=== PATIENT | male | born 1990 | race Caucasian/White ===

== ENCOUNTER 2020-02-01 13:25 | Outpatient (REF) | payer MEDICARE, MEDICAID, SELFPAY ==
[2020-02-01 14:38] LABS: White Blood Count 6.7 X10*3/uL (4.8-10.8)
== END 2020-02-01 13:26 | disposition home or self-care (01) ==
LOC: HO.LABR 13:25
PROVIDERS: Visit Provider Clinical Nurse Specialist Psychiatric/Mental Health, Adult
DX: Z51.81 Encounter for therapeutic drug level monitoring (principal); Z79.899 Other long term (current) drug therapy
CPT/HCPCS: 36415

== ENCOUNTER 2020-02-12 14:34 | Outpatient (REF) | payer MEDICARE, MEDICAID, SELFPAY ==
[2020-02-12 15:12] LABS: MANUAL DIFF FLAG NO
[2020-02-12 15:16] LABS: Basophils Percent Auto 0.2 % (0-2); Hematocrit 40.1 % (42-52); Hemoglobin 13.5 g/dl (14.0-18.0); Imm Gran Abs Auto 0.06 X10*3/uL (0.00-0.03); Lymphocytes Absolute Auto 1.6 X10*3/uL (1.2-4.9); Lymphocytes Percent Auto 26.1 % (20-40); Mean Corpuscular HGB Conc 33.7 g/dl (31.0-36.0); Mean Corpuscular Hemoglobin 27.9 pg (27.0-33.0); Mean Corpuscular Volume 82.9 fL (80-98); Mean Platelet Volume 10.9 fL (9.4-12.4); Monocytes Absolute Auto 0.4 X10*3/uL (0.1-1.2); Monocytes Percent Auto 7.2 % (2-11); Neut%MD 65.5 %; Neutrophils Absolute Auto 3.9 X10*3/uL (2.0-8.3); Neutrophils Percent Auto 65.5 % (45-73); Platelet Count 216 X10*3/uL (160-400); Red Blood Count 4.84 X10*6/uL (4.60-5.80); Red Cell Distribution Width 13.9 % (11.0-16.0)
== END 2020-02-12 14:35 | disposition home or self-care (01) ==
LOC: HO.LABR 14:34
PROVIDERS: Visit Provider Clinical Nurse Specialist Psychiatric/Mental Health, Adult
DX: Z79.899 Other long term (current) drug therapy (principal)
CPT/HCPCS: 36415; 85025

== ENCOUNTER 2020-02-28 11:16 | Outpatient (REF) | payer MEDICARE, MEDICAID, SELFPAY ==
[2020-02-28 11:53] LABS: Neut%MD 67.2 %; Neutrophils Absolute Auto 5.2 X10*3/uL (2.0-8.3); WBCANC 7.7 X10*3/uL; White Blood Count 7.7 X10*3/uL (4.8-10.8)
== END 2020-02-28 11:17 | disposition home or self-care (01) ==
LOC: HO.LABR 11:16
PROVIDERS: Visit Provider Clinical Nurse Specialist Psychiatric/Mental Health, Adult
DX: Z51.81 Encounter for therapeutic drug level monitoring (principal)
CPT/HCPCS: 36415

== ENCOUNTER 2020-03-26 13:38 | Outpatient (REF) | payer MEDICARE, MEDICAID, SELFPAY ==
[2020-03-26 16:24] LABS: Neut%MD 72.5 %; Neutrophils Absolute Auto 5.7 X10*3/uL (2.0-8.3); WBCANC 7.9 X10*3/uL; White Blood Count 7.9 X10*3/uL (4.8-10.8)
== END 2020-03-26 13:39 | disposition home or self-care (01) ==
LOC: HO.HMGCLDS 13:38
PROVIDERS: Visit Provider Clinical Nurse Specialist Psychiatric/Mental Health, Adult
DX: R79.89 Other specified abnormal findings of blood chemistry (principal); Z79.899 Other long term (current) drug therapy
CPT/HCPCS: 36415; 85048

== ENCOUNTER 2020-04-22 11:23 | Outpatient (REF) | payer MEDICARE, MEDICAID, SELFPAY ==
[2020-04-22 14:25] LABS: Neutrophils Absolute Auto 4.9 X10*3/uL (2.0-8.3); White Blood Count 7.1 X10*3/uL (4.8-10.8)
== END 2020-04-22 11:24 | disposition home or self-care (01) ==
LOC: HO.HMGCLR 11:23
PROVIDERS: Visit Provider Clinical Nurse Specialist Psychiatric/Mental Health, Adult
DX: Z51.81 Encounter for therapeutic drug level monitoring (principal); Z79.899 Other long term (current) drug therapy
CPT/HCPCS: 36415; 85048

== ENCOUNTER 2020-05-27 13:20 | Outpatient (REF) | payer MEDICARE, MEDICAID, SELFPAY ==
[2020-05-27 15:05] LABS: White Blood Count 7.5 X10*3/uL (4.8-10.8)
[2020-05-28 12:03] LABS: Neutrophils Absolute Auto 5.4 X10*3/uL (2.0-8.3)
== END 2020-05-27 13:21 | disposition home or self-care (01) ==
LOC: HO.LABR 13:20
PROVIDERS: Visit Provider Clinical Nurse Specialist Psychiatric/Mental Health, Adult
DX: Z13.89 Encounter for screening for other disorder (principal)
CPT/HCPCS: 36415; 85048

== ENCOUNTER 2020-06-06 15:39 | Outpatient (REF) | payer MEDICARE, MEDICAID, SELFPAY ==
--- NOTE | ~2020-06-06 | XR_ITS ---
EXAMINATION: XR KNEE, RIGHT CLINICAL INFORMATION: Pain in the right knee COMPARISON: Prior x-rays of right knee April 2019 and MRI of the right knee April 2017. TECHNIQUE: Four views of the right knee. FINDINGS: There is prominence of the distal pole of the patella which may be a sequela of old patella fracture or incorporation of ossification related to old patella tendon tear. Bones and soft tissues are otherwise normal. No fracture or joint effusion. Alignment is anatomic. Joint spaces are well maintained. No abnormal soft tissue calcification. XR/XR knee RT 4V IMPRESSION: No acute abnormality. Stable appearance of the patella.
--- NOTE | ~2020-06-06 | XR_ITS ---
EXAMINATION: XR ANKLE, RIGHT CLINICAL INFORMATION: Pain right ankle COMPARISON: X-ray the right ankle April 2015 TECHNIQUE: AP, lateral, and mortise views of the right ankle. FINDINGS: Soft tissue prominence over the lateral malleolus may reflect normal variation or mild edema. No joint effusion. Small calcaneal spurs. Mild degenerative changes of the naviculocuneiform joint. I do not see a fracture. XR/XR ankle RT min 3V IMPRESSION: Mild osteoarthritis in the midfoot unchanged. Question mild soft tissue swelling laterally versus soft tissue prominence
== END 2020-06-06 15:40 | disposition home or self-care (01) ==
LOC: HO.XRAY 15:39
PROVIDERS: PCP Internal Medicine; Visit Provider Internal Medicine
DX: M25.561 Pain in right knee (principal); M25.571 Pain in right ankle and joints of right foot
CPT/HCPCS: 73564; 73610

== ENCOUNTER 2020-06-26 11:17 | Outpatient (REF) | payer MEDICARE, MEDICAID, SELFPAY ==
[2020-06-26 14:08] LABS: MANUAL DIFF FLAG NO
[2020-06-26 14:17] LABS: Hematocrit 44.1 % (42-52); Hemoglobin 14.4 g/dl (14.0-18.0); Imm Gran Abs Auto 0.05 X10*3/uL (0.00-0.03); Imm Gran Pct Auto 0.7 % (0.0-0.4); Lymphocytes Absolute Auto 1.6 X10*3/uL (1.2-4.9); Lymphocytes Percent Auto 22.6 % (20-40); Mean Corpuscular HGB Conc 32.7 g/dl (31.0-36.0); Mean Corpuscular Hemoglobin 27.5 pg (27.0-33.0); Mean Corpuscular Volume 84.2 fL (80-98); Mean Platelet Volume 11.7 fL (9.4-12.4); Monocytes Absolute Auto 0.5 X10*3/uL (0.1-1.2); Monocytes Percent Auto 6.9 % (2-11); Neutrophils Absolute Auto 4.8 X10*3/uL (2.0-8.3); Neutrophils Percent Auto 69.8 % (45-73); Platelet Count 248 X10*3/uL (160-400); Red Blood Count 5.24 X10*6/uL (4.60-5.80); Red Cell Distribution Width 14.1 % (11.0-16.0); White Blood Count 6.9 X10*3/uL (4.8-10.8)
== END 2020-06-26 11:18 | disposition home or self-care (01) ==
LOC: HO.10HDL 11:17
PROVIDERS: Visit Provider Clinical Nurse Specialist Psychiatric/Mental Health, Adult
DX: Z79.899 Other long term (current) drug therapy (principal)
CPT/HCPCS: 36415; 85025

== ENCOUNTER 2020-07-18 11:07 | Emergency (ER) | payer MEDICARE, MEDICAID, SELFPAY ==
--- NOTE | ~2020-07-18 | XR_ITS ---
EXAMINATION: XR ANKLE, RIGHT CLINICAL INFORMATION: Pain and swelling greater lateral side COMPARISON: Radiographs right ankle 06/06/2020 TECHNIQUE: AP, lateral, and mortise views of the right ankle. FINDINGS: Bimalleolar soft tissue swelling is increased since prior exam 06/06/2020. The malleoli appear intact and the ankle mortise is symmetric. The bony mineralization appears normal. There is no fracture, dislocation, destructive process, or periostitis. There is no joint narrowing or erosive change or visible chondrocalcinosis. The subtalar joint is unremarkable. The retrocalcaneal recess is preserved. There are posterior and plantar calcaneal spurs again seen and mild borderline spurring dorsal midfoot. XR/XR ankle RT min 3V IMPRESSION: 1. Soft tissue swelling increased since 06/06/2020. 2. No acute bony abnormality. No fracture, destructive process, or interval arthropathy. 3. Posterior and plantar calcaneal spurs.
--- NOTE | 2020-07-18 11:54 | ED_ITS ---
HPI - Extremity Injury (Lower) General Chief Complaint: Extremity Injury, Lower Stated Complaint: ankle pain Time Seen by Provider: 07/18/20 11:54 Source: patient Mode of arrival: ambulatory Limitations: no limitations History of Present Illness HPI Narrative: 29-year-old male with pmh of asthma, htn here with right ankle pain for 1 month. The patient tells me that he did have a twisting injury 1 month ago causing some pain and swelling. He was evaluated by his primary care doctor and had some x-rays which were reportedly normal. He tells me that he continue to work after the injury and did not do any resting or elevation or supportive care. He now has persistent pain and swelling. He has an appointment on the with new include orthopedics. He denies any numbness, tingling, redness, warmth, fevers, chills. Uses a cane for ambulation Related Data Previous Rx's Medication Instructions Recorded ibuprofen 600 mg PO Q8H PRN #10 tab 07/18/20 Allergies Allergy/AdvReac Type Severity Reaction Status Date / Time No Known Allergies Allergy Unverified 12/14/19 15:59 [No Known Allergies*] Lactose intolerant Allergy Unknown Diarrhea Uncoded 07/18/20 12:01 Review of Systems Review of Systems: Yes all other systems are reviewed and are negative Constitutional: Constitutional: Reports no additional constitutional complaints, Denies body ache(s), Denies chills, Denies fever(s), Denies headache(s) and Denies weakness Eyes: Eyes: Reports no additional eye complaints and Denies change in vision ENT: Reports system reviewed and no additional complaints, except as documented, Denies dizziness, Denies headache(s), Denies nasal congestion, Denies nasal discharge and Denies neck pain Cardiovascular: Cardiovascular: Reports no additional cardiovascular complaints, Denies chest pain, Denies leg edema and Denies dyspnea Respiratory: Respiratory: Reports no additional respiratory complaints, Denies cough and Denies dyspnea Gastrointestinal: Gastrointestinal: Reports no additional gastrointestinal complaints, Denies abdominal pain, Denies diarrhea, Denies nausea and Denies vomiting Genitourinary: Genitourinary: Denies urinary incontinence Musculoskeletal: Musculoskeletal: Reports no additional musculoskeletal complaints, Denies back pain, Reports arthralgias, Reports joint swelling, Denies neck pain, Denies numbness and Denies tingling Integumentary/Breasts: Skin/Breast: Reports system reviewed and no additional complaints, except as docu and Denies rash Neurologic: Reports system reviewed and no additional complaints, except as documented, Denies Abnormal speech present, Denies dizziness, Denies headache(s), Denies numbness, Denies tingling and Denies weakness PMFSH Past Medical History Attestation statement: The following information was validated with the patient. Source: old records reviewed and nursing notes reviewed Medical History Asthma High blood pressure Social History Social History Advance Directives: No Advance Directives Information Provided: No Physical Exam Vital Signs: Vital Signs: Last Vital Signs Temp 97.5 F 07/18/20 11:55 Pulse 100 07/18/20 11:55 Resp 20 07/18/20 11:55 BP 154/87 H 07/18/20 11:55 Pulse Ox 96 07/18/20 11:55 Body Mass Index 53.1 Const: General: cooperative, healthy appearing, comfortable and no acute distress Orientation/consciousness: patient oriented x3 Limitations: no limitations HENMT: Head: Yes normal to inspection Ears: hearing grossly normal bilaterally General nose exam: Normal external nose present Face and sinus: Yes normal facial exam Mouth: Normal oral and palatal mucosa present Throat: Yes posterior oropharynx normal Eyes: General: appearance normal, both eyes and all related structures Pupils: Equal, round and reactive pupils present Neck: Neck: Yes normal visual inspection Chest: Chest palpation & inspection: normal inspection of the chest Resp: Effort & Inspection: normal respiratory effort Auscultation: clear to auscultation bilaterally Cardio: Rate: regular rate Rhythm: regular rhythm Peripheral pulses: Peripheral pulses 2+ throughout GI: Inspection: Yes normal to inspection Palpation (GI): Soft to palpation and nontender Auscultation: normal bowel sounds Back/Spine/Pelvis: Thoracic/Lumbar Spine: thoracic and lumbar spine normal to inspection Skin: General skin exam: no rashes or lesions noted Neuro: General: patient oriented x3, no focal motor deficits and normal sensation to monofilament Cranial nerves: Yes Equal, round and reactive pupils present Cognition (Neuro): normal cognition Speech: No Abnormal speech present Gait exam (Neuro): Normal gait present Motor exam (neuro): 5/5 motor strength present throughout Extrem: Other: Tenderness with mild swelling over the right lateral ankle with some mild tenderness but no swelling over the medial ankle. Full range of motion. No posterior pain. Negative Huff test. No foot pain. Neurovascular intact distally. General: Yes normal to inspection Course Course Course Narrative: Persistent right ankle pain and swelling status post twisting injury 1 month ago. No new injury or trauma. No paresthesias. CMS intact distally. X-rays today though show no bony abnormality. He already has an appointment with Orthopedics on 07/24. We discussed supportive care in the meantime including limiting weight-bearing, ice, elevation and anti-inflammatory medication. Reviewed worrisome signs and symptoms of when to seek additional care. Comfortable discharge home. Procedures Procedure Narrative Procedure Narrative: Jag wrap right ankle MDM - Extremity Injury (Lower) Medical Records Attestation: I reviewed the patient's medical records. Lab Data Attestation: I reviewed the patient's lab results. Imaging Data ankle/foot xray: Attestation: I personally reviewed and interpreted this imaging study as follows: Radiologist's impression: EXAMINATION: XR ANKLE, RIGHT CLINICAL INFORMATION: Pain and swelling greater lateral side COMPARISON: Radiographs right ankle 06/06/2020 TECHNIQUE: AP, lateral, and mortise views of the right ankle. FINDINGS: Bimalleolar soft tissue swelling is increased since prior exam 06/06/2020. The malleoli appear intact and the ankle mortise is symmetric. The bony mineralization appears normal. There is no fracture, dislocation, destructive process, or periostitis. There is no joint narrowing or erosive change or visible chondrocalcinosis. The subtalar joint is unremarkable. The retrocalcaneal recess is preserved. There are posterior and plantar calcaneal spurs again seen and mild borderline spurring dorsal midfoot. XR/XR ankle RT min 3V IMPRESSION: 1. Soft tissue swelling increased since 06/06/2020. 2. No acute bony abnormality. No fracture, destructive process, or interval arthropathy. 3. Posterior and plantar calcaneal spurs. Discharge Plan Discharge Clinical Impression: Ankle sprain and strain Patient Disposition: Home, Self-Care Instructions: Ankle Sprain (ED) Additional Instructions: Ice, elevation, limit weight bearing Follow-up as scheduled with orthopedics Prescriptions: New ibuprofen 600 mg tablet 600 mg PO Q8H PRN (Reason: pain) Qty: 10 RF: 0 Referrals: [facility] [Primary Care Provider] - 2 days Stand Alone Forms: Work/School Release Interventions: ED Discharge Assessment Last Done: 07/18/20 12:58 Discharge Date/Time: 07/18/20 13:11
[2020-07-18 11:55] VITALS: BP 154/87; PULSE 100; RESP 20; TEMP 36.4; O2SAT 96; BMI 53.1
[2020-07-18] MEDS: Ibuprofen 600 MG TABLET PO (13:07)
== END 2020-07-18 13:11 | disposition home or self-care (01) ==
PROVIDERS: Emergency Provider Emergency Medicine
DX: S93.401A Sprain of unspecified ligament of right ankle, initial encounter (principal); S96.911A Strain of unspecified muscle and tendon at ankle and foot level, right foot, initial encounter; X50.1XXA Overexertion from prolonged static or awkward postures, initial encounter; Y93.9 Activity, unspecified; Y92.9 Unspecified place or not applicable; Y99.9 Unspecified external cause status
CPT/HCPCS: 73610; 99283

== ENCOUNTER → 2020-07-24 09:59 | Outpatient (BNVA) | payer MEDICARE, MEDICAID, SELFPAY | PROVIDERS: Visit Provider Physician Assistant | DX: M19.071 Primary osteoarthritis, right ankle and foot (principal) | CPT/HCPCS: 99202 ==

== ENCOUNTER 2020-07-30 11:13 | Outpatient (REF) | payer MEDICARE, MEDICAID, SELFPAY ==
[2020-07-30 14:06] LABS: MANUAL DIFF FLAG NO
[2020-07-30 14:27] LABS: Basophils Percent Auto 0.1 % (0-2); Hematocrit 43.1 % (42-52); Hemoglobin 13.9 g/dl (14.0-18.0); Imm Gran Abs Auto 0.07 X10*3/uL (0.00-0.03); Lymphocytes Absolute Auto 1.6 X10*3/uL (1.2-4.9); Lymphocytes Percent Auto 22.3 % (20-40); Mean Corpuscular HGB Conc 32.3 g/dl (31.0-36.0); Mean Corpuscular Hemoglobin 26.9 pg (27.0-33.0); Mean Corpuscular Volume 83.4 fL (80-98); Mean Platelet Volume 11.3 fL (9.4-12.4); Monocytes Absolute Auto 0.5 X10*3/uL (0.1-1.2); Monocytes Percent Auto 7.4 % (2-11); Neutrophils Percent Auto 69.2 % (45-73); Platelet Count 232 X10*3/uL (160-400); Red Blood Count 5.17 X10*6/uL (4.60-5.80); Red Cell Distribution Width 13.9 % (11.0-16.0); White Blood Count 7.3 X10*3/uL (4.8-10.8)
== END 2020-07-30 11:14 | disposition home or self-care (01) ==
LOC: HO.10HDL 11:13
PROVIDERS: Visit Provider Clinical Nurse Specialist Psychiatric/Mental Health, Adult
DX: Z79.899 Other long term (current) drug therapy (principal)
CPT/HCPCS: 36415; 85025

== ENCOUNTER 2020-08-29 15:06 | Outpatient (REF) | payer MEDICARE, MEDICAID, SELFPAY ==
[2020-08-29 15:38] LABS: MANUAL DIFF FLAG NO
[2020-08-29 15:47] LABS: Hematocrit 43.8 % (42-52); Hemoglobin 14.4 g/dl (14.0-18.0); Imm Gran Abs Auto 0.04 X10*3/uL (0.00-0.03); Imm Gran Pct Auto 0.6 % (0.0-0.4); Lymphocytes Absolute Auto 1.7 X10*3/uL (1.2-4.9); Lymphocytes Percent Auto 27.2 % (20-40); Mean Corpuscular HGB Conc 32.9 g/dl (31.0-36.0); Mean Corpuscular Hemoglobin 27.1 pg (27.0-33.0); Mean Corpuscular Volume 82.5 fL (80-98); Mean Platelet Volume 11.3 fL (9.4-12.4); Monocytes Absolute Auto 0.3 X10*3/uL (0.1-1.2); Monocytes Percent Auto 4.7 % (2-11); Neutrophils Absolute Auto 4.3 X10*3/uL (2.0-8.3); Neutrophils Percent Auto 67.5 % (45-73); Platelet Count 214 X10*3/uL (160-400); Red Blood Count 5.31 X10*6/uL (4.60-5.80); Red Cell Distribution Width 14.3 % (11.0-16.0); White Blood Count 6.4 X10*3/uL (4.8-10.8)
== END 2020-08-29 15:07 | disposition home or self-care (01) ==
LOC: HO.LABR 15:06
PROVIDERS: Visit Provider Clinical Nurse Specialist Psychiatric/Mental Health, Adult
DX: Z79.899 Other long term (current) drug therapy (principal)
CPT/HCPCS: 36415; 85025

== ENCOUNTER 2020-09-26 11:18 | Outpatient (REF) | payer MEDICARE, MEDICAID, SELFPAY ==
[2020-09-26 12:18] LABS: MANUAL DIFF FLAG NO
[2020-09-26 12:24] LABS: Basophils Percent Auto 0.1 % (0-2); Hematocrit 43.9 % (42-52); Hemoglobin 14.4 g/dl (14.0-18.0); Imm Gran Abs Auto 0.05 X10*3/uL (0.00-0.03); Imm Gran Pct Auto 0.7 % (0.0-0.4); Lymphocytes Absolute Auto 1.7 X10*3/uL (1.2-4.9); Lymphocytes Percent Auto 23.9 % (20-40); Mean Corpuscular HGB Conc 32.8 g/dl (31.0-36.0); Mean Corpuscular Hemoglobin 27.5 pg (27.0-33.0); Mean Corpuscular Volume 83.9 fL (80-98); Mean Platelet Volume 10.9 fL (9.4-12.4); Monocytes Absolute Auto 0.4 X10*3/uL (0.1-1.2); Monocytes Percent Auto 5.8 % (2-11); Neutrophils Absolute Auto 4.9 X10*3/uL (2.0-8.3); Neutrophils Percent Auto 69.5 % (45-73); Platelet Count 225 X10*3/uL (160-400); Red Blood Count 5.23 X10*6/uL (4.60-5.80)
== END 2020-09-26 11:19 | disposition home or self-care (01) ==
LOC: HO.LABR 11:18
PROVIDERS: Visit Provider Clinical Nurse Specialist Psychiatric/Mental Health, Adult
DX: Z79.899 Other long term (current) drug therapy (principal)
CPT/HCPCS: 36415; 85025

== ENCOUNTER 2020-10-24 14:51 | Outpatient (REF) | payer MEDICARE, MEDICAID, SELFPAY ==
[2020-10-24 15:26] LABS: MANUAL DIFF FLAG NO
[2020-10-24 15:29] LABS: Basophils Percent Auto 0.1 % (0-2); Eosinophils Percent Auto 0.1 % (0-4); Hematocrit 44.2 % (42-52); Hemoglobin 14.6 g/dl (14.0-18.0); Imm Gran Abs Auto 0.08 X10*3/uL (0.00-0.03); Imm Gran Pct Auto 1.1 % (0.0-0.4); Mean Corpuscular Hemoglobin 27.5 pg (27.0-33.0); Mean Corpuscular Volume 83.4 fL (80-98); Mean Platelet Volume 10.8 fL (9.4-12.4); Monocytes Absolute Auto 0.5 X10*3/uL (0.1-1.2); Monocytes Percent Auto 6.2 % (2-11); Neutrophils Absolute Auto 4.9 X10*3/uL (2.0-8.3); Neutrophils Percent Auto 65.5 % (45-73); Platelet Count 243 X10*3/uL (160-400); Red Cell Distribution Width 13.8 % (11.0-16.0); White Blood Count 7.5 X10*3/uL (4.8-10.8)
== END 2020-10-24 14:52 | disposition home or self-care (01) ==
LOC: HO.LABR 14:51
PROVIDERS: Visit Provider Clinical Nurse Specialist Psychiatric/Mental Health, Adult
DX: Z79.899 Other long term (current) drug therapy (principal)
CPT/HCPCS: 36415; 85025

== ENCOUNTER 2020-11-26 10:56 | Outpatient (REF) | payer MEDICARE, MEDICAID, SELFPAY ==
[2020-11-26 13:38] LABS: MANUAL DIFF FLAG NO
[2020-11-26 13:45] LABS: Basophils Percent Auto 0.1 % (0-2); Hematocrit 46.5 % (42-52); Hemoglobin 15.1 g/dl (14.0-18.0); Imm Gran Abs Auto 0.08 X10*3/uL (0.00-0.03); Imm Gran Pct Auto 1.1 % (0.0-0.4); Lymphocytes Absolute Auto 1.9 X10*3/uL (1.2-4.9); Lymphocytes Percent Auto 26.3 % (20-40); Mean Corpuscular HGB Conc 32.5 g/dl (31.0-36.0); Mean Corpuscular Hemoglobin 27.1 pg (27.0-33.0); Mean Corpuscular Volume 83.5 fL (80-98); Mean Platelet Volume 11.2 fL (9.4-12.4); Monocytes Absolute Auto 0.4 X10*3/uL (0.1-1.2); Neutrophils Absolute Auto 4.8 X10*3/uL (2.0-8.3); Neutrophils Percent Auto 66.5 % (45-73); Platelet Count 237 X10*3/uL (160-400); Red Blood Count 5.57 X10*6/uL (4.60-5.80); Red Cell Distribution Width 13.4 % (11.0-16.0); White Blood Count 7.2 X10*3/uL (4.8-10.8)
== END 2020-11-26 10:57 | disposition home or self-care (01) ==
LOC: HO.10HDL 10:56
PROVIDERS: Visit Provider Clinical Nurse Specialist Psychiatric/Mental Health, Adult
DX: Z79.899 Other long term (current) drug therapy (principal)
CPT/HCPCS: 36415; 85025

== ENCOUNTER 2020-12-23 12:30 | Outpatient (REF) | payer MEDICARE, MEDICAID, SELFPAY ==
[2020-12-23 14:00] LABS: Hematocrit 45.3 % (42-52); Imm Gran Abs Auto 0.07 X10*3/uL (0.00-0.03); Lymphocytes Percent Auto 27.8 % (20-40); MANUAL DIFF FLAG NO; Mean Corpuscular HGB Conc 33.1 g/dl (31.0-36.0); Mean Corpuscular Hemoglobin 27.5 pg (27.0-33.0); Mean Corpuscular Volume 83.1 fL (80-98); Mean Platelet Volume 11.7 fL (9.4-12.4); Monocytes Absolute Auto 0.5 X10*3/uL (0.1-1.2); Monocytes Percent Auto 6.5 % (2-11); Neutrophils Absolute Auto 4.7 X10*3/uL (2.0-8.3); Neutrophils Percent Auto 64.7 % (45-73); Platelet Count 246 X10*3/uL (160-400); Red Blood Count 5.45 X10*6/uL (4.60-5.80); Red Cell Distribution Width 13.9 % (11.0-16.0); White Blood Count 7.3 X10*3/uL (4.8-10.8)
== END 2020-12-23 12:31 | disposition home or self-care (01) ==
LOC: HO.10HDL 12:30
PROVIDERS: Visit Provider Clinical Nurse Specialist Psychiatric/Mental Health, Adult
DX: Z79.899 Other long term (current) drug therapy (principal)
CPT/HCPCS: 36415; 85025

== ENCOUNTER 2021-01-16 12:13 | Outpatient (REF) | payer MEDICARE, MEDICAID, SELFPAY ==
[2021-01-16 13:39] LABS: MANUAL DIFF FLAG NO
[2021-01-16 13:47] LABS: Hemoglobin 14.3 g/dl (14.0-18.0); Imm Gran Abs Auto 0.05 X10*3/uL (0.00-0.03); Imm Gran Pct Auto 0.7 % (0.0-0.4); Lymphocytes Absolute Auto 1.9 X10*3/uL (1.2-4.9); Lymphocytes Percent Auto 26.4 % (20-40); Mean Corpuscular HGB Conc 33.3 g/dl (31.0-36.0); Mean Corpuscular Hemoglobin 27.8 pg (27.0-33.0); Mean Corpuscular Volume 83.5 fL (80-98); Mean Platelet Volume 11.7 fL (9.4-12.4); Monocytes Absolute Auto 0.4 X10*3/uL (0.1-1.2); Monocytes Percent Auto 5.7 % (2-11); Neut%MD 67.2 %; Neutrophils Absolute Auto 4.7 X10*3/uL (2.0-8.3); Neutrophils Percent Auto 67.2 % (45-73); Platelet Count 210 X10*3/uL (160-400); Red Blood Count 5.15 X10*6/uL (4.60-5.80)
== END 2021-01-16 12:14 | disposition home or self-care (01) ==
LOC: HO.10HDL 12:13
PROVIDERS: Visit Provider Clinical Nurse Specialist Psychiatric/Mental Health, Adult
DX: Z79.899 Other long term (current) drug therapy (principal)
CPT/HCPCS: 36415; 85025

== ENCOUNTER 2021-02-17 12:02 | Outpatient (REF) | payer MEDICARE, MEDICAID, SELFPAY ==
[2021-02-17 13:56] LABS: MANUAL DIFF FLAG NO
[2021-02-17 14:02] LABS: Basophils Percent Auto 0.1 % (0-2); Hematocrit 44.3 % (42.0-52.0); Hemoglobin 14.8 g/dl (14.0-18.0); Imm Gran Abs Auto 0.06 X10*3/uL (0.00-0.03); Imm Gran Pct Auto 0.8 % (0.0-0.4); Lymphocytes Absolute Auto 1.9 X10*3/uL (1.2-4.9); Lymphocytes Percent Auto 25.7 % (20-40); Mean Corpuscular HGB Conc 33.4 g/dl (31.0-36.0); Mean Corpuscular Volume 83.9 fL (80.0-98.0); Mean Platelet Volume 11.3 fL (9.4-12.4); Monocytes Absolute Auto 0.5 X10*3/uL (0.1-1.2); Monocytes Percent Auto 6.5 % (2-11); Neutrophils Percent Auto 66.9 % (45-73); Platelet Count 219 X10*3/uL (160-400); Red Blood Count 5.28 X10*6/uL (4.60-5.80); Red Cell Distribution Width 13.7 % (11.0-16.0); White Blood Count 7.5 X10*3/uL (4.8-10.8)
== END 2021-02-17 12:03 | disposition home or self-care (01) ==
LOC: HO.10HDL 12:02
PROVIDERS: Visit Provider Clinical Nurse Specialist Psychiatric/Mental Health, Adult
DX: Z79.899 Other long term (current) drug therapy (principal)
CPT/HCPCS: 36415; 85025

== ENCOUNTER 2021-03-25 14:51 | Outpatient (REF) | payer MEDICARE, MEDICAID, SELFPAY ==
--- NOTE | ~2021-03-25 | XR_ITS ---
EXAMINATION: XR HAND, RIGHT CLINICAL INFORMATION: Pain between first and second digits. COMPARISON: None TECHNIQUE: PA, lateral, and oblique views of the right hand. FINDINGS: Images are obtained with a marker directed towards the first-second interphalangeal space. No fractures, malalignment or arthropathic changes are identified. A 1 mm punctate ossific fragment is noted medially distal to the ulnar styloid process. Normal bone mineralization is present. No marginal erosions visualized. Diffuse soft tissue prominence is present. 3 mm negative ulnar variance is identified. XR/XR hand RT min 3V IMPRESSION: *No acute abnormalities identified. *Diffuse soft tissue prominence throughout the hand which may reflect body habitus. *Single 1 mm ossific body adjacent to the ulnar styloid process which may represent minimal soft tissue dystrophic calcification or the sequela of remote injury.
== END 2021-03-25 14:52 | disposition home or self-care (01) ==
LOC: HO.XRAY 14:51
PROVIDERS: PCP Internal Medicine; Visit Provider Internal Medicine
DX: M79.641 Pain in right hand (principal)
CPT/HCPCS: 73130

== ENCOUNTER 2021-03-26 12:17 | Outpatient (REF) | payer MEDICARE, MEDICAID, SELFPAY ==
[2021-03-26 13:26] LABS: MANUAL DIFF FLAG NO
[2021-03-26 13:33] LABS: Eosinophils Percent Auto 0.1 % (0-4); Hematocrit 44.2 % (42.0-52.0); Hemoglobin 14.4 g/dl (14.0-18.0); Imm Gran Abs Auto 0.06 X10*3/uL (0.00-0.03); Imm Gran Pct Auto 0.8 % (0.0-0.4); Lymphocytes Absolute Auto 1.7 X10*3/uL (1.2-4.9); Lymphocytes Percent Auto 23.2 % (20-40); Mean Corpuscular HGB Conc 32.6 g/dl (31.0-36.0); Mean Corpuscular Hemoglobin 27.6 pg (27.0-33.0); Mean Corpuscular Volume 84.7 fL (80.0-98.0); Mean Platelet Volume 11.2 fL (9.4-12.4); Monocytes Absolute Auto 0.4 X10*3/uL (0.1-1.2); Monocytes Percent Auto 5.3 % (2-11); Neut%MD 70.6 %; Neutrophils Absolute Auto 5.2 x10*3/uL (2.0-8.3); Neutrophils Percent Auto 70.6 % (45-73); Platelet Count 228 X10*3/uL (160-400); Red Blood Count 5.22 X10*6/uL (4.60-5.80); Red Cell Distribution Width 13.7 % (11.0-16.0); WBCANC 7.3 X10*3/uL; White Blood Count 7.3 X10*3/uL (4.8-10.8)
== END 2021-03-26 12:18 | disposition home or self-care (01) ==
LOC: HO.10HDL 12:17
PROVIDERS: Visit Provider Clinical Nurse Specialist Psychiatric/Mental Health, Adult
DX: Z79.899 Other long term (current) drug therapy (principal)
CPT/HCPCS: 36415; 85025

== ENCOUNTER 2021-04-22 13:03 | Outpatient (REF) | payer MEDICARE, MEDICAID, SELFPAY ==
[2021-04-22 13:32] LABS: MANUAL DIFF FLAG NO
[2021-04-22 13:56] LABS: Basophils Percent Auto 0.1 % (0-2); Hematocrit 46.6 % (42.0-52.0); Hemoglobin 14.9 g/dl (14.0-18.0); Imm Gran Abs Auto 0.04 X10*3/uL (0.00-0.03); Imm Gran Pct Auto 0.6 % (0.0-0.4); Lymphocytes Absolute Auto 1.7 X10*3/uL (1.2-4.9); Mean Corpuscular Hemoglobin 27.1 pg (27.0-33.0); Mean Corpuscular Volume 84.7 fL (80.0-98.0); Mean Platelet Volume 11.3 fL (9.4-12.4); Monocytes Absolute Auto 0.4 X10*3/uL (0.1-1.2); Monocytes Percent Auto 6.4 % (2-11); Neut%MD 67.9 %; Neutrophils Absolute Auto 4.7 x10*3/uL (2.0-8.3); Neutrophils Percent Auto 67.9 % (45-73); Platelet Count 227 X10*3/uL (160-400); Red Cell Distribution Width 13.7 % (11.0-16.0); WBCANC 6.9 X10*3/uL; White Blood Count 6.9 X10*3/uL (4.8-10.8)
== END 2021-04-22 13:04 | disposition home or self-care (01) ==
LOC: HO.LAB 13:03
PROVIDERS: Visit Provider Clinical Nurse Specialist Psychiatric/Mental Health, Adult
DX: Z79.899 Other long term (current) drug therapy (principal)
CPT/HCPCS: 36415; 85025

== ENCOUNTER 2021-05-27 10:38 | Outpatient (REF) | payer MEDICARE, MEDICAID, SELFPAY ==
[2021-05-27 13:33] LABS: MANUAL DIFF FLAG NO
[2021-05-27 13:36] LABS: Basophils Percent Auto 0.1 % (0-2); Hematocrit 44.7 % (42.0-52.0); Hemoglobin 14.7 g/dl (14.0-18.0); Imm Gran Abs Auto 0.03 X10*3/uL (0.00-0.03); Imm Gran Pct Auto 0.4 % (0.0-0.4); Lymphocytes Absolute Auto 1.7 X10*3/uL (1.2-4.9); Lymphocytes Percent Auto 24.3 % (20-40); Mean Corpuscular HGB Conc 32.9 g/dl (31.0-36.0); Mean Corpuscular Hemoglobin 27.9 pg (27.0-33.0); Mean Platelet Volume 11.7 fL (9.4-12.4); Monocytes Absolute Auto 0.5 X10*3/uL (0.1-1.2); Monocytes Percent Auto 6.9 % (2-11); Neutrophils Absolute Auto 4.8 x10*3/uL (2.0-8.3); Neutrophils Percent Auto 68.3 % (45-73); Platelet Count 217 X10*3/uL (160-400); Red Blood Count 5.26 X10*6/uL (4.60-5.80); Red Cell Distribution Width 13.7 % (11.0-16.0); White Blood Count 7.1 X10*3/uL (4.8-10.8)
== END 2021-05-27 10:39 | disposition home or self-care (01) ==
LOC: HO.10HDLR 10:38
PROVIDERS: Visit Provider Clinical Nurse Specialist Psychiatric/Mental Health, Adult
DX: Z79.899 Other long term (current) drug therapy (principal)
CPT/HCPCS: 36415; 85025

== ENCOUNTER 2021-06-24 10:13 | Outpatient (REF) | payer MEDICARE, MEDICAID, SELFPAY ==
[2021-06-24 10:27] LABS: MANUAL DIFF FLAG NO
[2021-06-24 10:41] LABS: Basophils Percent Auto 0.1 % (0-2); Hematocrit 44.2 % (42.0-52.0); Hemoglobin 14.4 g/dl (14.0-18.0); Imm Gran Abs Auto 0.06 X10*3/uL (0.00-0.03); Imm Gran Pct Auto 0.8 % (0.0-0.4); Lymphocytes Absolute Auto 1.9 X10*3/uL (1.2-4.9); Lymphocytes Percent Auto 25.1 % (20-40); Mean Corpuscular HGB Conc 32.6 g/dl (31.0-36.0); Mean Corpuscular Hemoglobin 27.8 pg (27.0-33.0); Mean Corpuscular Volume 85.3 fL (80.0-98.0); Mean Platelet Volume 11.6 fL (9.4-12.4); Monocytes Absolute Auto 0.5 X10*3/uL (0.1-1.2); Monocytes Percent Auto 6.5 % (2-11); Neutrophils Percent Auto 67.5 % (45-73); Platelet Count 201 X10*3/uL (160-400); Red Blood Count 5.18 X10*6/uL (4.60-5.80); Red Cell Distribution Width 13.6 % (11.0-16.0); White Blood Count 7.4 X10*3/uL (4.8-10.8)
== END 2021-06-24 10:14 | disposition home or self-care (01) ==
LOC: HO.LABR 10:13
PROVIDERS: Visit Provider Clinical Nurse Specialist Psychiatric/Mental Health, Adult
DX: Z79.899 Other long term (current) drug therapy (principal)
CPT/HCPCS: 36415; 85025

== ENCOUNTER 2021-07-22 11:10 | Outpatient (REF) | payer MEDICARE, MEDICAID, SELFPAY ==
[2021-07-22 11:25] LABS: MANUAL DIFF FLAG NO
[2021-07-22 12:05] LABS: Basophils Percent Auto 0.1 % (0-2); Hematocrit 44.4 % (42.0-52.0); Hemoglobin 14.7 g/dl (14.0-18.0); Imm Gran Abs Auto 0.06 X10*3/uL (0.00-0.03); Imm Gran Pct Auto 0.9 % (0.0-0.4); Lymphocytes Absolute Auto 1.7 X10*3/uL (1.2-4.9); Lymphocytes Percent Auto 25.4 % (20-40); Mean Corpuscular HGB Conc 33.1 g/dl (31.0-36.0); Mean Corpuscular Hemoglobin 27.7 pg (27.0-33.0); Mean Corpuscular Volume 83.8 fL (80.0-98.0); Mean Platelet Volume 11.3 fL (9.4-12.4); Monocytes Absolute Auto 0.5 X10*3/uL (0.1-1.2); Monocytes Percent Auto 6.9 % (2-11); Neutrophils Absolute Auto 4.5 x10*3/uL (2.0-8.3); Neutrophils Percent Auto 66.7 % (45-73); Platelet Count 214 X10*3/uL (160-400); Red Cell Distribution Width 13.6 % (11.0-16.0); White Blood Count 6.8 X10*3/uL (4.8-10.8)
== END 2021-07-22 11:11 | disposition home or self-care (01) ==
LOC: HO.LABR 11:10
PROVIDERS: Visit Provider Clinical Nurse Specialist Psychiatric/Mental Health, Adult
DX: Z79.899 Other long term (current) drug therapy (principal)
CPT/HCPCS: 36415; 85025

== ENCOUNTER 2021-08-20 12:23 | Outpatient (REF) | payer MEDICARE, MEDICAID, SELFPAY ==
[2021-08-20 12:35] LABS: MANUAL DIFF FLAG NO
[2021-08-20 13:16] LABS: Basophils Percent Auto 0.1 % (0-2); Hematocrit 45.4 % (42.0-52.0); Imm Gran Abs Auto 0.04 X10*3/uL (0.00-0.03); Imm Gran Pct Auto 0.5 % (0.0-0.4); Lymphocytes Absolute Auto 1.9 X10*3/uL (1.2-4.9); Lymphocytes Percent Auto 24.7 % (20-40); Mean Corpuscular Hemoglobin 27.7 pg (27.0-33.0); Mean Corpuscular Volume 83.8 fL (80.0-98.0); Mean Platelet Volume 11.6 fL (9.4-12.4); Monocytes Absolute Auto 0.4 X10*3/uL (0.1-1.2); Monocytes Percent Auto 5.4 % (2-11); Neutrophils Absolute Auto 5.3 x10*3/uL (2.0-8.3); Neutrophils Percent Auto 69.3 % (45-73); Platelet Count 225 X10*3/uL (160-400); Red Blood Count 5.42 X10*6/uL (4.60-5.80); Red Cell Distribution Width 13.2 % (11.0-16.0); White Blood Count 7.7 X10*3/uL (4.8-10.8)
== END 2021-08-20 12:24 | disposition home or self-care (01) ==
LOC: HO.LABR 12:23
PROVIDERS: Visit Provider Clinical Nurse Specialist Psychiatric/Mental Health, Adult
DX: Z79.899 Other long term (current) drug therapy (principal)
CPT/HCPCS: 36415; 85025

== ENCOUNTER 2021-09-15 14:23 | Outpatient (REF) | payer MEDICARE, MEDICAID, SELFPAY ==
[2021-09-15 14:32] LABS: MANUAL DIFF FLAG NO
[2021-09-15 14:49] LABS: Basophils Percent Auto 0.1 % (0-2); Hematocrit 46.5 % (42.0-52.0); Hemoglobin 15.1 g/dl (14.0-18.0); Imm Gran Abs Auto 0.06 X10*3/uL (0.00-0.03); Imm Gran Pct Auto 0.7 % (0.0-0.4); Lymphocytes Absolute Auto 1.8 X10*3/uL (1.2-4.9); Lymphocytes Percent Auto 22.5 % (20-40); Mean Corpuscular HGB Conc 32.5 g/dl (31.0-36.0); Mean Corpuscular Hemoglobin 27.1 pg (27.0-33.0); Mean Corpuscular Volume 83.3 fL (80.0-98.0); Mean Platelet Volume 10.8 fL (9.4-12.4); Monocytes Absolute Auto 0.5 X10*3/uL (0.1-1.2); Monocytes Percent Auto 6.7 % (2-11); Neutrophils Absolute Auto 5.6 x10*3/uL (2.0-8.3); Platelet Count 235 X10*3/uL (160-400); Red Blood Count 5.58 X10*6/uL (4.60-5.80); Red Cell Distribution Width 13.5 % (11.0-16.0)
== END 2021-09-15 14:24 | disposition home or self-care (01) ==
LOC: HO.LABR 14:23
PROVIDERS: PCP Internal Medicine; Visit Provider Clinical Nurse Specialist Psychiatric/Mental Health, Adult
DX: Z79.899 Other long term (current) drug therapy (principal)
CPT/HCPCS: 36415; 85025

== ENCOUNTER 2021-10-16 13:47 | Outpatient (REF) | payer MEDICARE, MEDICAID, SELFPAY ==
[2021-10-16 14:09] LABS: MANUAL DIFF FLAG NO
[2021-10-16 14:49] LABS: Basophils Percent Auto 0.1 % (0-2); Hematocrit 45.4 % (42.0-52.0); Hemoglobin 14.8 g/dl (14.0-18.0); Imm Gran Abs Auto 0.03 X10*3/uL (0.00-0.03); Imm Gran Pct Auto 0.4 % (0.0-0.4); Lymphocytes Absolute Auto 1.7 X10*3/uL (1.2-4.9); Lymphocytes Percent Auto 22.4 % (20-40); Mean Corpuscular HGB Conc 32.6 g/dl (31.0-36.0); Mean Corpuscular Hemoglobin 27.5 pg (27.0-33.0); Mean Corpuscular Volume 84.4 fL (80.0-98.0); Mean Platelet Volume 11.5 fL (9.4-12.4); Monocytes Absolute Auto 0.6 X10*3/uL (0.1-1.2); Monocytes Percent Auto 7.1 % (2-11); Neutrophils Absolute Auto 5.4 x10*3/uL (2.0-8.3); Platelet Count 229 X10*3/uL (160-400); Red Blood Count 5.38 X10*6/uL (4.60-5.80); Red Cell Distribution Width 13.7 % (11.0-16.0); White Blood Count 7.7 X10*3/uL (4.8-10.8)
== END 2021-10-16 13:48 | disposition home or self-care (01) ==
LOC: HO.LAB 13:47
PROVIDERS: Visit Provider Clinical Nurse Specialist Psychiatric/Mental Health, Adult
DX: Z79.899 Other long term (current) drug therapy (principal)
CPT/HCPCS: 36415; 85025

== ENCOUNTER 2021-11-17 13:29 | Outpatient (REF) | payer MEDICARE, MEDICAID, SELFPAY ==
[2021-11-17 13:40] LABS: MANUAL DIFF FLAG NO
[2021-11-17 14:15] LABS: Basophils Percent Auto 0.1 % (0-2); Hematocrit 45.9 % (42.0-52.0); Hemoglobin 15.1 g/dl (14.0-18.0); Imm Gran Abs Auto 0.02 X10*3/uL (0.00-0.03); Imm Gran Pct Auto 0.3 % (0.0-0.4); Lymphocytes Absolute Auto 1.8 X10*3/uL (1.2-4.9); Lymphocytes Percent Auto 25.6 % (20-40); Mean Corpuscular HGB Conc 32.9 g/dl (31.0-36.0); Mean Corpuscular Hemoglobin 27.5 pg (27.0-33.0); Mean Corpuscular Volume 83.5 fL (80.0-98.0); Mean Platelet Volume 10.9 fL (9.4-12.4); Monocytes Absolute Auto 0.5 X10*3/uL (0.1-1.2); Monocytes Percent Auto 6.4 % (2-11); Neutrophils Absolute Auto 4.7 x10*3/uL (2.0-8.3); Neutrophils Percent Auto 67.6 % (45-73); Platelet Count 239 X10*3/uL (160-400); Red Cell Distribution Width 13.4 % (11.0-16.0)
== END 2021-11-17 13:30 | disposition home or self-care (01) ==
LOC: HO.LAB 13:29
PROVIDERS: Visit Provider Clinical Nurse Specialist Psychiatric/Mental Health, Adult
DX: Z79.899 Other long term (current) drug therapy (principal)
CPT/HCPCS: 36415; 85025

== ENCOUNTER 2021-12-22 13:56 | Outpatient (REF) | payer MEDICARE, MEDICAID, SELFPAY ==
[2021-12-22 14:16] LABS: MANUAL DIFF FLAG NO
[2021-12-22 14:48] LABS: Basophils Percent Auto 0.1 % (0-2); Hematocrit 47.2 % (42.0-52.0); Hemoglobin 15.3 g/dl (14.0-18.0); Imm Gran Abs Auto 0.04 X10*3/uL (0.00-0.03); Imm Gran Pct Auto 0.5 % (0.0-0.4); Lymphocytes Absolute Auto 1.7 X10*3/uL (1.2-4.9); Lymphocytes Percent Auto 22.9 % (20-40); Mean Corpuscular HGB Conc 32.4 g/dl (31.0-36.0); Mean Corpuscular Volume 83.4 fL (80.0-98.0); Monocytes Absolute Auto 0.5 X10*3/uL (0.1-1.2); Monocytes Percent Auto 6.1 % (2-11); Neut%MD 70.4 %; Neutrophils Absolute Auto 5.2 x10*3/uL (2.0-8.3); Neutrophils Percent Auto 70.4 % (45-73); Platelet Count 233 X10*3/uL (160-400); Red Blood Count 5.66 X10*6/uL (4.60-5.80); Red Cell Distribution Width 13.4 % (11.0-16.0); WBCANC 7.4 X10*3/uL; White Blood Count 7.4 X10*3/uL (4.8-10.8)
== END 2021-12-22 13:57 | disposition home or self-care (01) ==
LOC: HO.LAB 13:56
PROVIDERS: Visit Provider Clinical Nurse Specialist Psychiatric/Mental Health, Adult
DX: Z79.899 Other long term (current) drug therapy (principal)
CPT/HCPCS: 36415; 85025

== ENCOUNTER 2022-01-13 11:25 | Outpatient (REF) | payer MEDICARE, MEDICAID, SELFPAY ==
[2022-01-13 13:43] LABS: MANUAL DIFF FLAG NO
[2022-01-13 13:47] LABS: Hematocrit 44.3 % (42.0-52.0); Hemoglobin 14.6 g/dl (14.0-18.0); Imm Gran Abs Auto 0.06 X10*3/uL (0.00-0.03); Imm Gran Pct Auto 0.8 % (0.0-0.4); Lymphocytes Absolute Auto 1.7 X10*3/uL (1.2-4.9); Lymphocytes Percent Auto 23.8 % (20-40); Mean Corpuscular Hemoglobin 27.4 pg (27.0-33.0); Mean Corpuscular Volume 83.1 fL (80.0-98.0); Mean Platelet Volume 11.6 fL (9.4-12.4); Monocytes Absolute Auto 0.5 X10*3/uL (0.1-1.2); Monocytes Percent Auto 6.5 % (2-11); Neutrophils Absolute Auto 4.9 x10*3/uL (2.0-8.3); Neutrophils Percent Auto 68.9 % (45-73); Platelet Count 239 X10*3/uL (160-400); Red Blood Count 5.33 X10*6/uL (4.60-5.80); Red Cell Distribution Width 13.6 % (11.0-16.0); White Blood Count 7.1 X10*3/uL (4.8-10.8)
== END 2022-01-13 11:26 | disposition home or self-care (01) ==
LOC: HO.10HDLR 11:25
PROVIDERS: Internal Medicine; Visit Provider Clinical Nurse Specialist Psychiatric/Mental Health, Adult
DX: Z79.899 Other long term (current) drug therapy (principal)
CPT/HCPCS: 36415; 85025

== ENCOUNTER 2022-02-10 13:30 | Outpatient (REF) | payer MEDICARE, MEDICAID, SELFPAY ==
[2022-02-10 13:50] LABS: MANUAL DIFF FLAG NO
[2022-02-10 14:16] LABS: Hematocrit 45.7 % (42.0-52.0); Hemoglobin 14.9 g/dl (14.0-18.0); Imm Gran Abs Auto 0.04 X10*3/uL (0.00-0.03); Imm Gran Pct Auto 0.5 % (0.0-0.4); Lymphocytes Absolute Auto 1.8 X10*3/uL (1.2-4.9); Lymphocytes Percent Auto 22.9 % (20-40); Mean Corpuscular HGB Conc 32.6 g/dl (31.0-36.0); Mean Corpuscular Hemoglobin 27.3 pg (27.0-33.0); Mean Corpuscular Volume 83.7 fL (80.0-98.0); Mean Platelet Volume 11.4 fL (9.4-12.4); Monocytes Absolute Auto 0.5 X10*3/uL (0.1-1.2); Monocytes Percent Auto 6.8 % (2-11); Neut%MD 69.8 %; Neutrophils Absolute Auto 5.5 x10*3/uL (2.0-8.3); Neutrophils Percent Auto 69.8 % (45-73); Platelet Count 220 X10*3/uL (160-400); Red Blood Count 5.46 X10*6/uL (4.60-5.80); Red Cell Distribution Width 13.4 % (11.0-16.0); WBCANC 7.8 X10*3/uL; White Blood Count 7.8 X10*3/uL (4.8-10.8)
== END 2022-02-10 13:31 | disposition home or self-care (01) ==
LOC: HO.LABR 13:30
PROVIDERS: Visit Provider Clinical Nurse Specialist Psychiatric/Mental Health, Adult
DX: Z79.899 Other long term (current) drug therapy (principal)
CPT/HCPCS: 36415; 85025

== ENCOUNTER 2022-03-17 13:48 | Outpatient (REF) | payer MEDICARE, MEDICAID, SELFPAY ==
[2022-03-17 13:57] LABS: MANUAL DIFF FLAG NO
[2022-03-17 14:09] LABS: Basophils Percent Auto 0.1 % (0-2); Hematocrit 42.2 % (42.0-52.0); Hemoglobin 13.9 g/dl (14.0-18.0); Imm Gran Abs Auto 0.06 X10*3/uL (0.00-0.03); Imm Gran Pct Auto 0.8 % (0.0-0.4); Lymphocytes Absolute Auto 1.7 X10*3/uL (1.2-4.9); Lymphocytes Percent Auto 22.5 % (20-40); Mean Corpuscular HGB Conc 32.9 g/dl (31.0-36.0); Mean Corpuscular Hemoglobin 27.6 pg (27.0-33.0); Mean Corpuscular Volume 83.9 fL (80.0-98.0); Mean Platelet Volume 10.9 fL (9.4-12.4); Monocytes Absolute Auto 0.5 X10*3/uL (0.1-1.2); Monocytes Percent Auto 6.7 % (2-11); Neut%MD 69.9 %; Neutrophils Absolute Auto 5.3 x10*3/uL (2.0-8.3); Neutrophils Percent Auto 69.9 % (45-73); Platelet Count 215 X10*3/uL (160-400); Red Blood Count 5.03 X10*6/uL (4.60-5.80); Red Cell Distribution Width 13.5 % (11.0-16.0); WBCANC 7.6 X10*3/uL; White Blood Count 7.6 X10*3/uL (4.8-10.8)
== END 2022-03-17 13:49 | disposition home or self-care (01) ==
LOC: HO.LABR 13:48
PROVIDERS: Visit Provider Clinical Nurse Specialist Psychiatric/Mental Health, Adult
DX: Z79.899 Other long term (current) drug therapy (principal)
CPT/HCPCS: 36415; 85025

== ENCOUNTER 2022-04-16 11:33 | Outpatient (REF) | payer MEDICARE, MEDICAID, SELFPAY ==
[2022-04-16 13:57] LABS: MANUAL DIFF FLAG NO
[2022-04-16 14:00] LABS: Basophils Percent Auto 0.1 % (0-2); Hematocrit 44.2 % (42.0-52.0); Hemoglobin 14.4 g/dl (14.0-18.0); Imm Gran Abs Auto 0.02 X10*3/uL (0.00-0.03); Imm Gran Pct Auto 0.3 % (0.0-0.4); Lymphocytes Absolute Auto 1.5 X10*3/uL (1.2-4.9); Lymphocytes Percent Auto 21.2 % (20-40); Mean Corpuscular HGB Conc 32.6 g/dl (31.0-36.0); Mean Corpuscular Hemoglobin 27.8 pg (27.0-33.0); Mean Corpuscular Volume 85.3 fL (80.0-98.0); Mean Platelet Volume 11.7 fL (9.4-12.4); Monocytes Absolute Auto 0.4 X10*3/uL (0.1-1.2); Neutrophils Absolute Auto 5.3 x10*3/uL (2.0-8.3); Neutrophils Percent Auto 72.4 % (45-73); Platelet Count 259 X10*3/uL (160-400); Red Blood Count 5.18 X10*6/uL (4.60-5.80); Red Cell Distribution Width 13.1 % (11.0-16.0); White Blood Count 7.3 X10*3/uL (4.8-10.8)
== END 2022-04-16 11:34 | disposition home or self-care (01) ==
LOC: HO.10HDLR 11:33
PROVIDERS: Visit Provider Clinical Nurse Specialist Psychiatric/Mental Health, Adult
DX: Z79.899 Other long term (current) drug therapy (principal)
CPT/HCPCS: 36415; 85025

== ENCOUNTER 2022-05-11 13:40 | Outpatient (REF) | payer MEDICARE, MEDICAID, SELFPAY ==
[2022-05-11 13:48] LABS: MANUAL DIFF FLAG NO
[2022-05-11 14:02] LABS: Basophils Percent Auto 0.1 % (0-2); Hematocrit 46.2 % (42.0-52.0); Hemoglobin 15.1 g/dl (14.0-18.0); Imm Gran Abs Auto 0.06 X10*3/uL (0.00-0.03); Imm Gran Pct Auto 0.7 % (0.0-0.4); Lymphocytes Percent Auto 23.1 % (20-40); Mean Corpuscular HGB Conc 32.7 g/dl (31.0-36.0); Mean Corpuscular Hemoglobin 27.3 pg (27.0-33.0); Mean Corpuscular Volume 83.5 fL (80.0-98.0); Mean Platelet Volume 10.8 fL (9.4-12.4); Monocytes Absolute Auto 0.6 X10*3/uL (0.1-1.2); Monocytes Percent Auto 6.3 % (2-11); Neutrophils Absolute Auto 6.1 x10*3/uL (2.0-8.3); Neutrophils Percent Auto 69.8 % (45-73); Platelet Count 229 X10*3/uL (160-400); Red Blood Count 5.53 X10*6/uL (4.60-5.80); Red Cell Distribution Width 13.2 % (11.0-16.0); White Blood Count 8.7 X10*3/uL (4.8-10.8)
== END 2022-05-11 13:41 | disposition home or self-care (01) ==
LOC: HO.LABR 13:40
PROVIDERS: Visit Provider Clinical Nurse Specialist Psychiatric/Mental Health, Adult
DX: Z79.899 Other long term (current) drug therapy (principal)
CPT/HCPCS: 36415; 85025

== ENCOUNTER 2022-06-08 12:05 | Outpatient (REF) | payer MEDICARE, MEDICAID, SELFPAY ==
[2022-06-08 13:41] LABS: MANUAL DIFF FLAG NO
[2022-06-08 14:01] LABS: Basophils Percent Auto 0.2 % (0-2); Hematocrit 44.2 % (42.0-52.0); Hemoglobin 14.3 g/dl (14.0-18.0); Imm Gran Abs Auto 0.02 X10*3/uL (0.00-0.03); Imm Gran Pct Auto 0.3 % (0.0-0.4); Lymphocytes Absolute Auto 1.5 X10*3/uL (1.2-4.9); Mean Corpuscular HGB Conc 32.4 g/dl (31.0-36.0); Mean Corpuscular Hemoglobin 27.3 pg (27.0-33.0); Mean Corpuscular Volume 84.4 fL (80.0-98.0); Mean Platelet Volume 11.1 fL (9.4-12.4); Monocytes Absolute Auto 0.4 X10*3/uL (0.1-1.2); Monocytes Percent Auto 5.9 % (2-11); Neutrophils Absolute Auto 4.1 x10*3/uL (2.0-8.3); Neutrophils Percent Auto 68.6 % (45-73); Platelet Count 238 X10*3/uL (160-400); Red Blood Count 5.24 X10*6/uL (4.60-5.80); Red Cell Distribution Width 13.3 % (11.0-16.0)
[2022-06-08 14:34] LABS: Alanine Aminotransferase 23 U/L (0-40); Alkaline Phosphatase 106 U/L (39-117); Anion Gap 10 (12-20); Aspartate Amino Transferase 18 U/L (5-37); Bilirubin Total 0.4 mg/dL (0.0-1.0); Blood Urea Nitrogen 19 mg/dL (9-16); Carbon Dioxide 24 mmol/L (22-29); Chloride 111 mmol/L (96-108); Estimated Glomerular Filt Rate > 60; Glucose Random 119 mg/dL (60-115); Potassium 4.4 mmol/L (3.3-5.1); Sodium 141 mmol/L (135-145); Total Protein 6.9 g/dL (6.5-8.0)
[2022-06-11 06:59] LABS: Clozapine (Clozaril) 556 mcg/L; Norclozapine 263 mcg/L (25-400)
== END 2022-06-08 12:06 | disposition home or self-care (01) ==
LOC: HO.10HDL 12:05
PROVIDERS: Visit Provider Clinical Nurse Specialist Psychiatric/Mental Health, Adult
DX: Z13.89 Encounter for screening for other disorder (principal)
CPT/HCPCS: 36415; 80053; 80159; 85025

== ENCOUNTER 2022-07-08 09:49 | Outpatient (REF) | payer MEDICARE, MEDICAID, SELFPAY ==
[2022-07-08 10:06] LABS: MANUAL DIFF FLAG NO
[2022-07-08 10:12] LABS: Basophils Percent Auto 0.1 % (0-2); Hematocrit 44.5 % (42.0-52.0); Hemoglobin 14.7 g/dl (14.0-18.0); Imm Gran Abs Auto 0.05 X10*3/uL (0.00-0.03); Imm Gran Pct Auto 0.7 % (0.0-0.4); Lymphocytes Absolute Auto 1.5 X10*3/uL (1.2-4.9); Lymphocytes Percent Auto 21.3 % (20-40); Mean Corpuscular Hemoglobin 27.4 pg (27.0-33.0); Mean Platelet Volume 10.7 fL (9.4-12.4); Monocytes Absolute Auto 0.5 X10*3/uL (0.1-1.2); Monocytes Percent Auto 6.5 % (2-11); Neutrophils Percent Auto 71.4 % (45-73); Platelet Count 225 X10*3/uL (160-400); Red Blood Count 5.36 X10*6/uL (4.60-5.80); Red Cell Distribution Width 13.8 % (11.0-16.0); White Blood Count 7.1 X10*3/uL (4.8-10.8)
== END 2022-07-08 09:50 | disposition home or self-care (01) ==
LOC: HO.LABR 09:49
PROVIDERS: Visit Provider Clinical Nurse Specialist Psychiatric/Mental Health, Adult
DX: Z79.899 Other long term (current) drug therapy (principal)
CPT/HCPCS: 36415; 85025

== ENCOUNTER 2022-08-12 09:39 | Outpatient (REF) | payer MEDICARE, MEDICAID, SELFPAY ==
[2022-08-12 09:50] LABS: MANUAL DIFF FLAG NO
[2022-08-12 09:54] LABS: Basophils Percent Auto 0.1 % (0-2); Hematocrit 43.3 % (42.0-52.0); Hemoglobin 14.4 g/dl (14.0-18.0); Imm Gran Abs Auto 0.02 X10*3/uL (0.00-0.03); Imm Gran Pct Auto 0.3 % (0.0-0.4); Lymphocytes Absolute Auto 1.5 X10*3/uL (1.2-4.9); Lymphocytes Percent Auto 21.7 % (20-40); Mean Corpuscular HGB Conc 33.3 g/dl (31.0-36.0); Mean Corpuscular Hemoglobin 27.6 pg (27.0-33.0); Mean Platelet Volume 10.3 fL (9.4-12.4); Monocytes Absolute Auto 0.4 X10*3/uL (0.1-1.2); Neutrophils Absolute Auto 4.9 x10*3/uL (2.0-8.3); Neutrophils Percent Auto 71.9 % (45-73); Platelet Count 208 X10*3/uL (160-400); Red Blood Count 5.22 X10*6/uL (4.60-5.80); Red Cell Distribution Width 13.7 % (11.0-16.0); White Blood Count 6.8 X10*3/uL (4.8-10.8)
== END 2022-08-12 09:40 | disposition home or self-care (01) ==
LOC: HO.LABR 09:39
PROVIDERS: Visit Provider Clinical Nurse Specialist Psychiatric/Mental Health, Adult
DX: Z79.899 Other long term (current) drug therapy (principal)
CPT/HCPCS: 36415; 85025

== ENCOUNTER 2022-09-08 11:59 | Outpatient (REF) | payer MEDICARE, MEDICAID, SELFPAY ==
[2022-09-08 13:12] LABS: Neutrophils Absolute Auto 4.8 x10*3/uL (2.0-8.3); White Blood Count 6.9 X10*3/uL (4.8-10.8)
== END 2022-09-08 12:00 | disposition home or self-care (01) ==
LOC: HO.10HDL 11:59
PROVIDERS: Visit Provider Clinical Nurse Specialist Psychiatric/Mental Health, Adult
DX: Z79.899 Other long term (current) drug therapy (principal)
CPT/HCPCS: 36415; 85048

== ENCOUNTER 2022-10-19 12:25 | Outpatient (REF) | payer MEDICARE, MEDICAID, SELFPAY ==
[2022-10-19 13:27] LABS: MANUAL DIFF FLAG NO
[2022-10-19 13:51] LABS: Basophils Percent Auto 0.1 % (0-2); Hematocrit 44.8 % (42.0-52.0); Hemoglobin 14.7 g/dl (14.0-18.0); Imm Gran Abs Auto 0.08 X10*3/uL (0.00-0.03); Lymphocytes Absolute Auto 1.6 X10*3/uL (1.2-4.9); Lymphocytes Percent Auto 19.9 % (20-40); Mean Corpuscular HGB Conc 32.8 g/dl (31.0-36.0); Mean Corpuscular Hemoglobin 27.3 pg (27.0-33.0); Mean Corpuscular Volume 83.1 fL (80.0-98.0); Mean Platelet Volume 11.2 fL (9.4-12.4); Monocytes Absolute Auto 0.5 X10*3/uL (0.1-1.2); Monocytes Percent Auto 5.5 % (2-11); Neut%MD 73.5 %; Neutrophils Percent Auto 73.5 % (45-73); Platelet Count 238 X10*3/uL (160-400); Red Blood Count 5.39 X10*6/uL (4.60-5.80); Red Cell Distribution Width 13.4 % (11.0-16.0); WBCANC 8.2 X10*3/uL; White Blood Count 8.2 X10*3/uL (4.8-10.8)
== END 2022-10-19 12:26 | disposition home or self-care (01) ==
LOC: HO.10HDL 12:25
PROVIDERS: Visit Provider Clinical Nurse Specialist Psychiatric/Mental Health, Adult
DX: Z79.899 Other long term (current) drug therapy (principal)
CPT/HCPCS: 36415; 85025

== ENCOUNTER 2022-11-16 14:06 | Outpatient (REF) | payer MEDICARE, MEDICAID, SELFPAY ==
[2022-11-16 14:23] LABS: MANUAL DIFF FLAG NO
[2022-11-16 14:42] LABS: Hematocrit 44.6 % (42.0-52.0); Hemoglobin 14.7 g/dl (14.0-18.0); Imm Gran Abs Auto 0.05 X10*3/uL (0.00-0.03); Imm Gran Pct Auto 0.8 % (0.0-0.4); Lymphocytes Absolute Auto 1.7 X10*3/uL (1.2-4.9); Lymphocytes Percent Auto 26.1 % (20-40); Mean Corpuscular Hemoglobin 27.6 pg (27.0-33.0); Mean Corpuscular Volume 83.7 fL (80.0-98.0); Mean Platelet Volume 10.7 fL (9.4-12.4); Monocytes Absolute Auto 0.3 X10*3/uL (0.1-1.2); Monocytes Percent Auto 5.3 % (2-11); Neutrophils Absolute Auto 4.4 x10*3/uL (2.0-8.3); Neutrophils Percent Auto 67.8 % (45-73); Platelet Count 204 X10*3/uL (160-400); Red Blood Count 5.33 X10*6/uL (4.60-5.80); Red Cell Distribution Width 13.5 % (11.0-16.0); White Blood Count 6.4 X10*3/uL (4.8-10.8)
== END 2022-11-16 14:07 | disposition home or self-care (01) ==
LOC: HO.LABR 14:06
PROVIDERS: Visit Provider Clinical Nurse Specialist Psychiatric/Mental Health, Adult
DX: Z79.899 Other long term (current) drug therapy (principal)
CPT/HCPCS: 36415; 85025

== ENCOUNTER 2022-12-10 14:07 | Outpatient (REF) | payer MEDICARE, MEDICAID, SELFPAY ==
[2022-12-10 14:23] LABS: MANUAL DIFF FLAG NO
[2022-12-10 14:54] LABS: Basophils Percent Auto 0.1 % (0-2); Hematocrit 44.5 % (42.0-52.0); Hemoglobin 14.7 g/dl (14.0-18.0); Imm Gran Abs Auto 0.05 X10*3/uL (0.00-0.03); Imm Gran Pct Auto 0.6 % (0.0-0.4); Lymphocytes Absolute Auto 1.8 X10*3/uL (1.2-4.9); Mean Corpuscular Hemoglobin 27.9 pg (27.0-33.0); Mean Corpuscular Volume 84.6 fL (80.0-98.0); Mean Platelet Volume 11.4 fL (9.4-12.4); Monocytes Absolute Auto 0.7 X10*3/uL (0.1-1.2); Neutrophils Absolute Auto 5.6 x10*3/uL (2.0-8.3); Neutrophils Percent Auto 69.3 % (45-73); Platelet Count 222 X10*3/uL (160-400); Red Blood Count 5.26 X10*6/uL (4.60-5.80); Red Cell Distribution Width 13.6 % (11.0-16.0); White Blood Count 8.1 X10*3/uL (4.8-10.8)
== END 2022-12-10 14:08 | disposition home or self-care (01) ==
LOC: HO.LABR 14:07
PROVIDERS: Visit Provider Clinical Nurse Specialist Psychiatric/Mental Health, Adult
DX: Z79.899 Other long term (current) drug therapy (principal)
CPT/HCPCS: 36415; 85025

== ENCOUNTER 2023-01-11 13:07 | Outpatient (REF) | payer MEDICARE, MEDICAID, SELFPAY ==
[2023-01-11 13:29] LABS: MANUAL DIFF FLAG NO
[2023-01-11 13:51] LABS: Basophils Percent Auto 0.2 % (0-2); Hematocrit 42.9 % (42.0-52.0); Imm Gran Abs Auto 0.04 X10*3/uL (0.00-0.03); Imm Gran Pct Auto 0.7 % (0.0-0.4); Lymphocytes Absolute Auto 1.5 X10*3/uL (1.2-4.9); Lymphocytes Percent Auto 26.9 % (20-40); Mean Corpuscular HGB Conc 32.6 g/dl (31.0-36.0); Mean Corpuscular Hemoglobin 27.6 pg (27.0-33.0); Mean Corpuscular Volume 84.6 fL (80.0-98.0); Mean Platelet Volume 10.8 fL (9.4-12.4); Monocytes Absolute Auto 0.3 X10*3/uL (0.1-1.2); Monocytes Percent Auto 6.2 % (2-11); Neutrophils Absolute Auto 3.6 x10*3/uL (2.0-8.3); Platelet Count 225 X10*3/uL (160-400); Red Blood Count 5.07 X10*6/uL (4.60-5.80); Red Cell Distribution Width 13.3 % (11.0-16.0); White Blood Count 5.5 X10*3/uL (4.8-10.8)
== END 2023-01-11 13:08 | disposition home or self-care (01) ==
LOC: HO.LABR 13:07
PROVIDERS: Visit Provider Clinical Nurse Specialist Psychiatric/Mental Health, Adult
DX: Z79.899 Other long term (current) drug therapy (principal)
CPT/HCPCS: 36415; 85025

== ENCOUNTER 2023-02-16 10:22 | Outpatient (REF) | payer MEDICARE, MEDICAID, SELFPAY ==
[2023-02-16 10:45] LABS: MANUAL DIFF FLAG NO
[2023-02-16 11:12] LABS: Basophils Percent Auto 0.2 % (0-2); Hematocrit 43.9 % (42.0-52.0); Hemoglobin 14.3 g/dl (14.0-18.0); Imm Gran Abs Auto 0.04 X10*3/uL (0.00-0.03); Imm Gran Pct Auto 0.6 % (0.0-0.4); Lymphocytes Absolute Auto 1.5 X10*3/uL (1.2-4.9); Lymphocytes Percent Auto 22.9 % (20-40); Mean Corpuscular HGB Conc 32.6 g/dl (31.0-36.0); Mean Corpuscular Hemoglobin 27.7 pg (27.0-33.0); Mean Corpuscular Volume 84.9 fL (80.0-98.0); Mean Platelet Volume 10.9 fL (9.4-12.4); Monocytes Absolute Auto 0.4 X10*3/uL (0.1-1.2); Monocytes Percent Auto 5.8 % (2-11); Neutrophils Absolute Auto 4.5 x10*3/uL (2.0-8.3); Neutrophils Percent Auto 70.5 % (45-73); Platelet Count 223 X10*3/uL (160-400); Red Blood Count 5.17 X10*6/uL (4.60-5.80); Red Cell Distribution Width 13.2 % (11.0-16.0); White Blood Count 6.4 X10*3/uL (4.8-10.8)
== END 2023-02-16 10:23 | disposition home or self-care (01) ==
LOC: HO.LAB 10:22
PROVIDERS: Visit Provider Clinical Nurse Specialist Psychiatric/Mental Health, Adult
DX: Z79.899 Other long term (current) drug therapy (principal)
CPT/HCPCS: 36415; 85025

== ENCOUNTER 2023-03-18 12:57 | Outpatient (REF) | payer MEDICARE, MEDICAID, SELFPAY ==
[2023-03-18 13:11] LABS: MANUAL DIFF FLAG NO
[2023-03-18 13:44] LABS: Basophils Percent Auto 0.1 % (0-2); Hemoglobin 14.3 g/dl (14.0-18.0); Imm Gran Abs Auto 0.05 X10*3/uL (0.00-0.03); Imm Gran Pct Auto 0.7 % (0.0-0.4); Lymphocytes Absolute Auto 1.5 X10*3/uL (1.2-4.9); Lymphocytes Percent Auto 21.7 % (20-40); Mean Corpuscular HGB Conc 33.3 g/dl (31.0-36.0); Mean Corpuscular Hemoglobin 27.8 pg (27.0-33.0); Mean Corpuscular Volume 83.5 fL (80.0-98.0); Mean Platelet Volume 11.3 fL (9.4-12.4); Monocytes Absolute Auto 0.4 X10*3/uL (0.1-1.2); Monocytes Percent Auto 5.3 % (2-11); Neutrophils Absolute Auto 4.9 x10*3/uL (2.0-8.3); Neutrophils Percent Auto 72.2 % (45-73); Platelet Count 212 X10*3/uL (160-400); Red Blood Count 5.15 X10*6/uL (4.60-5.80); Red Cell Distribution Width 13.2 % (11.0-16.0); White Blood Count 6.8 X10*3/uL (4.8-10.8)
== END 2023-03-18 12:58 | disposition home or self-care (01) ==
LOC: HO.LABR 12:57
PROVIDERS: Visit Provider Clinical Nurse Specialist Psychiatric/Mental Health, Adult
DX: Z79.899 Other long term (current) drug therapy (principal)
CPT/HCPCS: 36415; 85025

== ENCOUNTER 2023-04-15 12:56 | Outpatient (REF) | payer MEDICARE, MEDICAID, SELFPAY ==
[2023-04-15 13:18] LABS: MANUAL DIFF FLAG NO
[2023-04-15 13:40] LABS: Basophils Percent Auto 0.1 % (0-2); Hematocrit 42.6 % (42.0-52.0); Hemoglobin 14.3 g/dl (14.0-18.0); Imm Gran Abs Auto 0.05 X10*3/uL (0.00-0.03); Imm Gran Pct Auto 0.7 % (0.0-0.4); Lymphocytes Absolute Auto 1.7 X10*3/uL (1.2-4.9); Lymphocytes Percent Auto 25.1 % (20-40); Mean Corpuscular HGB Conc 33.6 g/dl (31.0-36.0); Mean Corpuscular Hemoglobin 27.6 pg (27.0-33.0); Mean Corpuscular Volume 82.2 fL (80.0-98.0); Mean Platelet Volume 10.3 fL (9.4-12.4); Monocytes Absolute Auto 0.4 X10*3/uL (0.1-1.2); Monocytes Percent Auto 6.5 % (2-11); Neutrophils Absolute Auto 4.5 x10*3/uL (2.0-8.3); Neutrophils Percent Auto 67.6 % (45-73); Platelet Count 242 X10*3/uL (160-400); Red Blood Count 5.18 X10*6/uL (4.60-5.80); Red Cell Distribution Width 13.2 % (11.0-16.0); White Blood Count 6.7 X10*3/uL (4.8-10.8)
== END 2023-04-15 12:57 | disposition home or self-care (01) ==
LOC: HO.LABR 12:56
PROVIDERS: Visit Provider Clinical Nurse Specialist Psychiatric/Mental Health, Adult
DX: Z79.899 Other long term (current) drug therapy (principal)
CPT/HCPCS: 36415; 85025

== ENCOUNTER 2023-05-17 12:13 | Outpatient (REF) | payer MEDICARE, MEDICAID, SELFPAY ==
[2023-05-17 12:27] LABS: MANUAL DIFF FLAG NO
[2023-05-17 13:13] LABS: Basophils Percent Auto 0.1 % (0-2); Hematocrit 46.2 % (42.0-52.0); Hemoglobin 15.2 g/dl (14.0-18.0); Imm Gran Abs Auto 0.04 X10*3/uL (0.00-0.03); Imm Gran Pct Auto 0.6 % (0.0-0.4); Lymphocytes Absolute Auto 1.8 X10*3/uL (1.2-4.9); Lymphocytes Percent Auto 25.8 % (20-40); Mean Corpuscular HGB Conc 32.9 g/dl (31.0-36.0); Mean Corpuscular Hemoglobin 27.2 pg (27.0-33.0); Mean Corpuscular Volume 82.6 fL (80.0-98.0); Mean Platelet Volume 10.8 fL (9.4-12.4); Monocytes Absolute Auto 0.5 X10*3/uL (0.1-1.2); Neut%MD 66.5 %; Neutrophils Absolute Auto 4.7 x10*3/uL (2.0-8.3); Neutrophils Percent Auto 66.5 % (45-73); Platelet Count 241 X10*3/uL (160-400); Red Blood Count 5.59 X10*6/uL (4.60-5.80); Red Cell Distribution Width 13.5 % (11.0-16.0); WBCANC 7.1 X10*3/uL; White Blood Count 7.1 X10*3/uL (4.8-10.8)
== END 2023-05-17 12:14 | disposition home or self-care (01) ==
LOC: HO.LABR 12:13
PROVIDERS: Visit Provider Clinical Nurse Specialist Psychiatric/Mental Health, Adult
DX: Z79.899 Other long term (current) drug therapy (principal)
CPT/HCPCS: 36415; 85025

== ENCOUNTER 2023-06-22 12:04 | Outpatient (REF) | payer MEDICARE, MEDICAID, SELFPAY ==
[2023-06-22 12:19] LABS: MANUAL DIFF FLAG NO
[2023-06-22 12:50] LABS: Basophils Percent Auto 0.1 % (0-2); Eosinophils Percent Auto 0.1 % (0-4); Hemoglobin 14.9 g/dl (14.0-18.0); Imm Gran Abs Auto 0.05 X10*3/uL (0.00-0.03); Imm Gran Pct Auto 0.7 % (0.0-0.4); Lymphocytes Absolute Auto 1.9 X10*3/uL (1.2-4.9); Lymphocytes Percent Auto 28.1 % (20-40); Mean Corpuscular HGB Conc 33.1 g/dl (31.0-36.0); Mean Corpuscular Hemoglobin 27.5 pg (27.0-33.0); Monocytes Absolute Auto 0.5 X10*3/uL (0.1-1.2); Neutrophils Absolute Auto 4.3 x10*3/uL (2.0-8.3); Platelet Count 236 X10*3/uL (160-400); Red Blood Count 5.42 X10*6/uL (4.60-5.80); Red Cell Distribution Width 14.3 % (11.0-16.0); White Blood Count 6.7 X10*3/uL (4.8-10.8)
== END 2023-06-22 12:05 | disposition home or self-care (01) ==
LOC: HO.LAB 12:04
PROVIDERS: Visit Provider Clinical Nurse Specialist Psychiatric/Mental Health, Adult
DX: Z79.899 Other long term (current) drug therapy (principal)
CPT/HCPCS: 36415; 85025

== ENCOUNTER 2023-07-06 16:59 | Outpatient (REF) | payer MEDICARE, MEDICAID, SELFPAY ==
[2023-07-06 17:08] LABS: MANUAL DIFF FLAG NO
[2023-07-06 18:20] LABS: Basophils Percent Auto 0.1 % (0-2); Hematocrit 43.4 % (42.0-52.0); Hemoglobin 14.8 g/dl (14.0-18.0); Imm Gran Abs Auto 0.07 X10*3/uL (0.00-0.03); Imm Gran Pct Auto 0.9 % (0.0-0.4); Lymphocytes Absolute Auto 2.2 X10*3/uL (1.2-4.9); Lymphocytes Percent Auto 28.7 % (20-40); Mean Corpuscular HGB Conc 34.1 g/dl (31.0-36.0); Mean Corpuscular Hemoglobin 28.2 pg (27.0-33.0); Mean Corpuscular Volume 82.7 fL (80.0-98.0); Mean Platelet Volume 11.3 fL (9.4-12.4); Monocytes Absolute Auto 0.5 X10*3/uL (0.1-1.2); Neut%MD 63.3 %; Neutrophils Absolute Auto 4.8 x10*3/uL (2.0-8.3); Neutrophils Percent Auto 63.3 % (45-73); Platelet Count 227 X10*3/uL (160-400); Red Blood Count 5.25 X10*6/uL (4.60-5.80); Red Cell Distribution Width 14.4 % (11.0-16.0); WBCANC 7.7 X10*3/uL; White Blood Count 7.7 X10*3/uL (4.8-10.8)
== END 2023-07-06 17:00 | disposition home or self-care (01) ==
LOC: HO.LABR 16:59
PROVIDERS: Visit Provider Clinical Nurse Specialist Psychiatric/Mental Health, Adult
DX: Z79.899 Other long term (current) drug therapy (principal)
CPT/HCPCS: 36415; 85025

== ENCOUNTER 2023-08-09 14:00 | Outpatient (REF) | payer MEDICARE, MEDICAID, SELFPAY ==
[2023-08-09 15:46] LABS: Basophils Percent Auto 0.1 % (0-2); Hematocrit 45.7 % (42.0-52.0); Imm Gran Abs Auto 0.05 X10*3/uL (0.00-0.03); Imm Gran Pct Auto 0.7 % (0.0-0.4); Lymphocytes Absolute Auto 2.1 X10*3/uL (1.2-4.9); Lymphocytes Percent Auto 27.4 % (20-40); MANUAL DIFF FLAG NO; Mean Corpuscular HGB Conc 32.8 g/dl (31.0-36.0); Mean Corpuscular Hemoglobin 27.3 pg (27.0-33.0); Mean Corpuscular Volume 83.2 fL (80.0-98.0); Mean Platelet Volume 11.1 fL (9.4-12.4); Monocytes Absolute Auto 0.5 X10*3/uL (0.1-1.2); Neutrophils Percent Auto 65.8 % (45-73); Platelet Count 253 X10*3/uL (160-400); Red Blood Count 5.49 X10*6/uL (4.60-5.80); Red Cell Distribution Width 13.7 % (11.0-16.0); White Blood Count 7.6 X10*3/uL (4.8-10.8)
== END 2023-08-09 14:01 | disposition home or self-care (01) ==
LOC: HO.LABR 14:00
PROVIDERS: Visit Provider Clinical Nurse Specialist Psychiatric/Mental Health, Adult
DX: Z79.899 Other long term (current) drug therapy (principal)
CPT/HCPCS: 36415; 85025

== ENCOUNTER 2023-08-31 11:28 | Outpatient (REF) | payer MEDICARE, MEDICAID, SELFPAY ==
[2023-08-31 11:48] LABS: MANUAL DIFF FLAG NO
[2023-08-31 12:44] LABS: Basophils Percent Auto 0.1 % (0-2); Hematocrit 45.8 % (42.0-52.0); Hemoglobin 15.2 g/dl (14.0-18.0); Imm Gran Abs Auto 0.05 X10*3/uL (0.00-0.03); Imm Gran Pct Auto 0.7 % (0.0-0.4); Lymphocytes Absolute Auto 1.7 X10*3/uL (1.2-4.9); Lymphocytes Percent Auto 23.5 % (20-40); Mean Corpuscular HGB Conc 33.2 g/dl (31.0-36.0); Mean Corpuscular Hemoglobin 28.1 pg (27.0-33.0); Mean Corpuscular Volume 84.7 fL (80.0-98.0); Mean Platelet Volume 11.3 fL (9.4-12.4); Monocytes Absolute Auto 0.5 X10*3/uL (0.1-1.2); Monocytes Percent Auto 6.1 % (2-11); Neutrophils Absolute Auto 5.1 x10*3/uL (2.0-8.3); Neutrophils Percent Auto 69.6 % (45-73); Platelet Count 217 X10*3/uL (160-400); Red Blood Count 5.41 X10*6/uL (4.60-5.80); Red Cell Distribution Width 13.7 % (11.0-16.0); White Blood Count 7.4 X10*3/uL (4.8-10.8)
== END 2023-08-31 11:29 | disposition home or self-care (01) ==
LOC: HO.LABR 11:28
PROVIDERS: Visit Provider Clinical Nurse Specialist Psychiatric/Mental Health, Adult
DX: Z79.899 Other long term (current) drug therapy (principal)
CPT/HCPCS: 36415; 85025

== ENCOUNTER 2023-10-04 10:05 | Outpatient (REF) | payer MEDICARE, MEDICAID, SELFPAY ==
[2023-10-04 10:39] LABS: MANUAL DIFF FLAG NO
[2023-10-04 11:03] LABS: Basophils Percent Auto 0.2 % (0-2); Hematocrit 44.8 % (42.0-52.0); Hemoglobin 14.6 g/dl (14.0-18.0); Imm Gran Abs Auto 0.07 X10*3/uL (0.00-0.03); Imm Gran Pct Auto 1.1 % (0.0-0.4); Lymphocytes Absolute Auto 1.5 X10*3/uL (1.2-4.9); Mean Corpuscular HGB Conc 32.6 g/dl (31.0-36.0); Mean Corpuscular Hemoglobin 27.8 pg (27.0-33.0); Mean Corpuscular Volume 85.2 fL (80.0-98.0); Mean Platelet Volume 10.7 fL (9.4-12.4); Monocytes Absolute Auto 0.3 X10*3/uL (0.1-1.2); Monocytes Percent Auto 5.4 % (2-11); Neutrophils Absolute Auto 4.5 x10*3/uL (2.0-8.3); Neutrophils Percent Auto 70.3 % (45-73); Platelet Count 245 X10*3/uL (160-400); Red Blood Count 5.26 X10*6/uL (4.60-5.80); Red Cell Distribution Width 13.5 % (11.0-16.0); White Blood Count 6.3 X10*3/uL (4.8-10.8)
[2023-10-04 11:20] LABS: Estimated Average Glucose 111 mg/dL; Hemoglobin A1c % 5.5 % (<6.0)
[2023-10-04 11:34] LABS: Alanine Aminotransferase 21 U/L (0-40); Albumin Level 4.2 g/dL (3.5-5.0); Alkaline Phosphatase 109 U/L (39-117); Anion Gap 14 (12-20); Aspartate Amino Transferase 18 U/L (5-37); Bilirubin Direct < 0.2 mg/dL (0.0-0.5); Bilirubin Total 0.2 mg/dL (0.0-1.0); Blood Urea Nitrogen 24 mg/dL (9-16); Calcium 9.4 mg/dL (8.4-10.2); Carbon Dioxide 22 mmol/L (22-29); Chloride 109 mmol/L (96-108); Cholesterol 222 mg/dL (<200); Estimated Glomerular Filt Rate > 60; Glucose Random 123 mg/dL (60-115); HDL Cholesterol 29 mg/dL (>40); Sodium 141 mmol/L (135-145); Total Protein 7.7 g/dL (6.5-8.0); Triglycerides 515 mg/dL (<150)
[2023-10-04 11:52] LABS: TSH reflex Free T4 1.05 uIU/mL (0.32-4.0)
[2023-10-04 12:24] LABS: ~HepC Num1 0.09 S/CO (0.00-0.79); ~Hepatitis C Antibody Nonreactive (Nonreactive)
[2023-10-07 14:34] LABS: HIV RNA PCR Qn Copies Not Detected Copies/mL; HIV RNA PCR Qn Log Copies Not Detected Log cps/mL
== END 2023-10-04 10:06 | disposition home or self-care (01) ==
LOC: HO.LAB 10:05
PROVIDERS: Absent Provider Internal Medicine; PCP Internal Medicine; Visit Provider Clinical Nurse Specialist Psychiatric/Mental Health, Adult
DX: Z00.00 Encounter for general adult medical examination without abnormal findings (principal); Z79.899 Other long term (current) drug therapy
CPT/HCPCS: 36415; 80048; 80061; 80076; 83036; 84443; 85025; 86803; 87536; 87900

== ENCOUNTER 2023-10-26 10:45 | Outpatient (REF) | payer MEDICARE, MEDICAID, SELFPAY ==
[2023-10-26 11:01] LABS: MANUAL DIFF FLAG NO
[2023-10-26 12:29] LABS: Basophils Percent Auto 0.2 % (0-2); Hematocrit 44.5 % (42.0-52.0); Hemoglobin 14.6 g/dl (14.0-18.0); Imm Gran Pct Auto 1.2 % (0.0-0.4); Lymphocytes Absolute Auto 1.6 X10*3/uL (1.2-4.9); Lymphocytes Percent Auto 18.9 % (20-40); Mean Corpuscular HGB Conc 32.8 g/dl (31.0-36.0); Mean Corpuscular Hemoglobin 27.9 pg (27.0-33.0); Mean Corpuscular Volume 84.9 fL (80.0-98.0); Mean Platelet Volume 11.2 fL (9.4-12.4); Monocytes Absolute Auto 0.6 X10*3/uL (0.1-1.2); Monocytes Percent Auto 6.9 % (2-11); Neutrophils Absolute Auto 6.3 x10*3/uL (2.0-8.3); Neutrophils Percent Auto 72.8 % (45-73); Platelet Count 244 X10*3/uL (160-400); Red Blood Count 5.24 X10*6/uL (4.60-5.80); Red Cell Distribution Width 13.7 % (11.0-16.0); White Blood Count 8.6 X10*3/uL (4.8-10.8)
== END 2023-10-26 10:46 | disposition home or self-care (01) ==
LOC: HO.LABR 10:45
PROVIDERS: Visit Provider Clinical Nurse Specialist Psychiatric/Mental Health, Adult
DX: Z79.899 Other long term (current) drug therapy (principal)
CPT/HCPCS: 36415; 85025

== ENCOUNTER 2023-11-25 11:04 | Outpatient (REF) | payer MEDICARE, MEDICAID, SELFPAY ==
[2023-11-25 11:14] LABS: MANUAL DIFF FLAG NO
[2023-11-25 11:33] LABS: Basophils Percent Auto 0.2 % (0-2); Hematocrit 42.2 % (42.0-52.0); Hemoglobin 14.2 g/dl (14.0-18.0); Imm Gran Abs Auto 0.03 X10*3/uL (0.00-0.03); Imm Gran Pct Auto 0.5 % (0.0-0.4); Lymphocytes Absolute Auto 1.4 X10*3/uL (1.2-4.9); Lymphocytes Percent Auto 24.7 % (20-40); Mean Corpuscular HGB Conc 33.6 g/dl (31.0-36.0); Mean Corpuscular Hemoglobin 28.5 pg (27.0-33.0); Mean Corpuscular Volume 84.7 fL (80.0-98.0); Mean Platelet Volume 10.9 fL (9.4-12.4); Monocytes Absolute Auto 0.3 X10*3/uL (0.1-1.2); Monocytes Percent Auto 5.7 % (2-11); Neutrophils Percent Auto 68.9 % (45-73); Platelet Count 227 X10*3/uL (160-400); Red Blood Count 4.98 X10*6/uL (4.60-5.80); Red Cell Distribution Width 13.6 % (11.0-16.0); White Blood Count 5.8 X10*3/uL (4.8-10.8)
== END 2023-11-25 11:05 | disposition home or self-care (01) ==
LOC: HO.LABR 11:04
PROVIDERS: PCP Internal Medicine; Visit Provider Clinical Nurse Specialist Psychiatric/Mental Health, Adult
DX: Z79.899 Other long term (current) drug therapy (principal)
CPT/HCPCS: 36415; 85025

== ENCOUNTER 2023-12-24 11:46 | Outpatient (REF) | payer MEDICARE, MEDICAID, SELFPAY ==
[2023-12-24 11:57] LABS: MANUAL DIFF FLAG NO
[2023-12-24 12:34] LABS: Basophils Percent Auto 0.1 % (0-2); Hemoglobin 14.6 g/dl (14.0-18.0); Imm Gran Abs Auto 0.04 X10*3/uL (0.00-0.03); Imm Gran Pct Auto 0.5 % (0.0-0.4); Lymphocytes Absolute Auto 1.8 X10*3/uL (1.2-4.9); Lymphocytes Percent Auto 21.3 % (20-40); Mean Corpuscular HGB Conc 33.2 g/dl (31.0-36.0); Mean Corpuscular Hemoglobin 28.1 pg (27.0-33.0); Mean Corpuscular Volume 84.8 fL (80.0-98.0); Mean Platelet Volume 11.3 fL (9.4-12.4); Monocytes Absolute Auto 0.5 X10*3/uL (0.1-1.2); Monocytes Percent Auto 6.5 % (2-11); Neutrophils Percent Auto 71.6 % (45-73); Platelet Count 216 X10*3/uL (160-400); Red Blood Count 5.19 X10*6/uL (4.60-5.80); Red Cell Distribution Width 13.5 % (11.0-16.0); White Blood Count 8.3 X10*3/uL (4.8-10.8)
== END 2023-12-24 11:47 | disposition home or self-care (01) ==
LOC: HO.LABR 11:46
PROVIDERS: PCP Internal Medicine
DX: Z79.899 Other long term (current) drug therapy (principal)
CPT/HCPCS: 36415; 85025

== ENCOUNTER 2024-01-17 11:26 | Outpatient (REF) | payer MEDICARE, MEDICAID, SELFPAY ==
[2024-01-17 11:53] LABS: MANUAL DIFF FLAG NO
[2024-01-17 12:26] LABS: Basophils Percent Auto 0.1 % (0-2); Hematocrit 43.4 % (42.0-52.0); Hemoglobin 14.5 g/dl (14.0-18.0); Imm Gran Abs Auto 0.04 X10*3/uL (0.00-0.03); Imm Gran Pct Auto 0.6 % (0.0-0.4); Lymphocytes Absolute Auto 1.7 X10*3/uL (1.2-4.9); Lymphocytes Percent Auto 25.3 % (20-40); Mean Corpuscular HGB Conc 33.4 g/dl (31.0-36.0); Mean Corpuscular Hemoglobin 28.3 pg (27.0-33.0); Mean Corpuscular Volume 84.8 fL (80.0-98.0); Mean Platelet Volume 10.7 fL (9.4-12.4); Monocytes Absolute Auto 0.4 X10*3/uL (0.1-1.2); Monocytes Percent Auto 5.8 % (2-11); Neutrophils Absolute Auto 4.6 x10*3/uL (2.0-8.3); Neutrophils Percent Auto 68.2 % (45-73); Platelet Count 218 X10*3/uL (160-400); Red Blood Count 5.12 X10*6/uL (4.60-5.80); Red Cell Distribution Width 13.4 % (11.0-16.0); White Blood Count 6.7 X10*3/uL (4.8-10.8)
== END 2024-01-17 11:27 | disposition home or self-care (01) ==
LOC: HO.LABR 11:26
DX: Z79.899 Other long term (current) drug therapy (principal)
CPT/HCPCS: 36415; 85025

== ENCOUNTER 2024-02-17 11:42 | Outpatient (REF) | payer MEDICARE, MEDICAID, SELFPAY ==
[2024-02-17 12:04] LABS: MANUAL DIFF FLAG NO
[2024-02-17 12:37] LABS: Basophils Percent Auto 0.2 % (0-2); Hematocrit 39.3 % (42.0-52.0); Hemoglobin 13.4 g/dl (14.0-18.0); Imm Gran Abs Auto 0.04 X10*3/uL (0.00-0.03); Lymphocytes Absolute Auto 1.3 X10*3/uL (1.2-4.9); Lymphocytes Percent Auto 31.3 % (20-40); Mean Corpuscular HGB Conc 34.1 g/dl (31.0-36.0); Mean Corpuscular Hemoglobin 28.3 pg (27.0-33.0); Mean Corpuscular Volume 82.9 fL (80.0-98.0); Mean Platelet Volume 10.9 fL (9.4-12.4); Monocytes Absolute Auto 0.5 X10*3/uL (0.1-1.2); Monocytes Percent Auto 11.1 % (2-11); Neutrophils Absolute Auto 2.3 x10*3/uL (2.0-8.3); Neutrophils Percent Auto 56.4 % (45-73); Platelet Count 229 X10*3/uL (160-400); Red Blood Count 4.74 X10*6/uL (4.60-5.80); Red Cell Distribution Width 13.4 % (11.0-16.0); White Blood Count 4.2 X10*3/uL (4.8-10.8)
== END 2024-02-17 11:43 | disposition home or self-care (01) ==
LOC: HO.LABR 11:42
DX: Z79.899 Other long term (current) drug therapy (principal)
CPT/HCPCS: 36415; 85025

== ENCOUNTER 2024-03-15 10:54 | Outpatient (REF) | payer MEDICARE, MEDICAID, SELFPAY ==
[2024-03-15 13:21] LABS: MANUAL DIFF FLAG NO
[2024-03-15 13:34] LABS: Basophils Percent Auto 0.3 % (0-2); Hemoglobin 14.8 g/dl (14.0-18.0); Imm Gran Abs Auto 0.04 X10*3/uL (0.00-0.03); Imm Gran Pct Auto 0.6 % (0.0-0.4); Lymphocytes Absolute Auto 1.7 X10*3/uL (1.2-4.9); Lymphocytes Percent Auto 25.1 % (20-40); Mean Corpuscular HGB Conc 33.6 g/dl (31.0-36.0); Mean Corpuscular Volume 83.3 fL (80.0-98.0); Mean Platelet Volume 11.1 fL (9.4-12.4); Monocytes Absolute Auto 0.5 X10*3/uL (0.1-1.2); Monocytes Percent Auto 7.3 % (2-11); Neutrophils Absolute Auto 4.4 x10*3/uL (2.0-8.3); Neutrophils Percent Auto 66.7 % (45-73); Platelet Count 217 X10*3/uL (160-400); Red Blood Count 5.28 X10*6/uL (4.60-5.80); White Blood Count 6.6 X10*3/uL (4.8-10.8)
== END 2024-03-15 10:55 | disposition home or self-care (01) ==
LOC: HO.10HDL 10:54
DX: Z79.899 Other long term (current) drug therapy (principal)
CPT/HCPCS: 36415; 85025

== ENCOUNTER 2024-04-18 12:00 | Outpatient (REF) | payer MEDICARE, MEDICAID, SELFPAY ==
[2024-04-18 12:11] LABS: MANUAL DIFF FLAG NO
[2024-04-18 12:35] LABS: Basophils Percent Auto 0.1 % (0-2); Hematocrit 43.8 % (42.0-52.0); Hemoglobin 14.5 g/dl (14.0-18.0); Imm Gran Abs Auto 0.04 X10*3/uL (0.00-0.03); Imm Gran Pct Auto 0.6 % (0.0-0.4); Lymphocytes Absolute Auto 1.6 X10*3/uL (1.2-4.9); Lymphocytes Percent Auto 23.2 % (20-40); Mean Corpuscular HGB Conc 33.1 g/dl (31.0-36.0); Mean Corpuscular Volume 84.6 fL (80.0-98.0); Mean Platelet Volume 10.6 fL (9.4-12.4); Monocytes Absolute Auto 0.4 X10*3/uL (0.1-1.2); Monocytes Percent Auto 5.6 % (2-11); Neutrophils Absolute Auto 4.9 x10*3/uL (2.0-8.3); Neutrophils Percent Auto 70.5 % (45-73); Platelet Count 207 X10*3/uL (160-400); Red Blood Count 5.18 X10*6/uL (4.60-5.80); Red Cell Distribution Width 13.6 % (11.0-16.0); White Blood Count 6.9 X10*3/uL (4.8-10.8)
--- OUTSIDE RECORDS SUMMARY | 2024-04-18 13:45 | XMS_ITS | Encounter Summary ---
Author Organization [employer] Address [address] [place] [address] Care Team Providers Care Insulation Sprayer Name Role Phone Olya Lew MD Primary Care Provide r Reason for Visit * Reason Onset Date Comments triage 04/01/2022 Encounter Details Date Type Department Care Team ([facility] st Contact Info) Description 04/01/2022 Telephone [facility] MEDICINE [address], [place] [phone] Olya Lew MD [address] [place] [address] triage Social History Tobacco Use Types Packs/Day Years Used Date Smoking Tobacco: Never Assessed Sex and Gender Information Value Date Recorded Sex Assigned at Male 01/26/2022 10:18 AM EDT Legal Sex Male 10:18 AM EDT Gender Identity Male 01/26/2022 10:18 AM EDT Sexual Orientation Straight 01/26/2022 10 :18 AM EDT documented as of this encounter Miscellaneous Notes * Telephone Encounter - Danuta Sullivan RN - 04/01/2022 10:16 AM EST Triage call Pt reports back pain and pain in all joints. Pt reports arthritis is prevelant and itis worse in the cold. Pt has not taken anything for pain advised to take tylenol/ibuprofen for painand Pt agrees. Home care reviewed with Pt. Pt is requesting to be seen for pain intervention. Pt iswalking with pain but, does continue to keep moving . No available apts in office today, advised tocome to [facility] when able and Pt agreed. Protocol Used: Back Pain (Adult) Protocol-Based Disposition: See in Office or Video Visit within 3 Days Video visit not offered Positive Triage Questions: * Moderate back pain (e.g., interferes with normal activities) and present > 3 days * Patient wants to be seen * All higher-acuity triage questions were negative Care Advice Discussed: * Reassurance and Education - Back Pain * Cold or Heat * Sleep * Activity * Pain Medicines * Pain Medicines - Extra Notes and Warnings * Reasons To Call Back - Fever occurs - Numbness or weakness occurs, or bowel/bladder problems - Pain begins to shoot into the leg - Pain persists over 2 weeks - Pain becomes worse - You become worse * Telephone Encounter - Jigar Arevalo - 04/01/2022 9:10 AM EST Symptoms: Back Pain - Not From Injury, Body Aches Outcome: Schedule an urgent appointment (within 1 hour) or talk to a nurse or provider soon Reason: Weakness of the leg The caller accepted this outcome documented in this encounter Plan of Treatment Not on file documented as of this encounter Visit Diagnoses Not on filedocumented in this encounter Care Teams Insulation Sprayer Relationship Specialty Start Date End Date Olya Lew MD [address] [place] [address] PCP - General Family Medicine 12/08/17 documented as of this encounter
--- OUTSIDE RECORDS SUMMARY | 2024-04-18 13:45 | XMS_ITS | Clinical Summary ---
Author Organization [employer] Address [address] [place] [address] Care Team Providers Care Destaticizer Feeder Name Role Phone Olya Lew MD Primary Care Provide r Allergies No known active allergies Medications albuterol 108 (90 Base) MCG/ACT inhalerIndication s:Mild intermittent asthma without complication Inhale 2 puffs every 6 (six) hours if needed for wheezing. 18 g 2 4 09/13/19 25 Active fenofibrate (Triglide) 160 MG tabletIndications :Hypertriglycerid emia Take 1 tablet (160 mg) by mouth Once per day. 30 tablet 11 4 10/04/19 25 Active fluticasone (Flonase) 50 MCG/ACT nasal spray Administer 1 spray into each nostril Once per day. 16 g 4 Active sodium chloride ([place] Nasal [place]) 0.65 % nasal spray Administer 1 spray into each nostril if needed for congestion. 30 mL 4 10/18/19 25 Active omeprazole (PriLOSEC) [address] capsuleIndication s:Gastroesophagea l reflux disease, unspecified whether esophagitis present TAKE 1 CAPSULE BY MOUTH EVERY MORNING 90 capsule 4 Active celecoxib (CeleBREX) 200 MG capsule TAKE 1 CAPSULE (200 MG) BY MOUTH EVERY 12 (TWELVE) HOURS IF NEEDED FOR MILD PAIN. 60 capsule 4 Active Active Problems Problem Noted Date Diagnosed Date COVID-19 virus infection 10/18/2023 Assessment & Plan (10/18/2023 5:57 PM EDT): No rx Paxlovid sent today, as he's out of the window period for antiviral rx. He's to be on isolation for 5 more days and can be out of isolation on 10/23 wearing a mask until 10/28, if sxs are resolved without other meds for at least 24h. Counseled to let close contacts within the past week, know about dx so they can be tested if needed. Rest (sleep at least 8 hours a night). Wash hands frequently Hydrate with plenty of water. Use saline nose drops Take Acetaminophen or Ibuprofen as Prn fever or discomfort Gargle with salt water and use throat sprays/lozenges prn Use heated, humidified air or take hot showers. If you have a fever, stay home and away from others (self isolation) until fever-free for 72 hours (temperature should be less than 100??F without medication). 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 Hypertension 12/11/2011 Mixed hyperlipidemia 09/08/2011 Bipolar disorder 08/13/2011 Smoker 08/04/2011 Obesity 05/04/2011 Encounters Date Type Department Care Team Description 02/17/2024 Refill [facility] MEDICINE [address] [place] [address] Olya Lew MD Gastroesophageal reflux disease, unspecified whether esophagitis present from Last 3 Months Immunizations Name Administration Dates Next Due DTaP 02/26/1993,,07/27/1990,02/26,1988 Hep B, Adolescent or Pediatric 08/18/1995,1994,02/17/1995 Hep B, adult 04/08/2011,02/26/2011 Hib (HbOC) 02/26/1993,02/26/1990 IPV 07/27/1990, 0,11/27/1989,12/27 Influenza injectable quadriv alent IIV4 with preservative 01/23/2022,06/07/2015 Influenza injectable quadriv alent preservative free 04/24/2021 Influenza, IIV3, injectable 11/18/2010 Influenza, Split (incl. yanick fied surface antigen) 12/11/2011 MMR 10/12/1997,02/26/1990 Pneumococcal Conjugate PCV 20 08/31/2023 Pneumococcal Polysaccharide PPSV23 12/11/2011 Tdap 08/29/2009,04/27/2000 Varicella 03/31/2009,10/27/1992 Social History Tobacco Use Types Packs/Day Years Used Date Smoking Tobacco: Some Days Cigarettes Passive Smoke Exposure: Current Smokeless Tobacco: Never Tobacco Cessation:Ready to Q uit: Not Asked; Counseling Given: Not Answered Housing Stability Answer Date Recorded What is your housing situation today? I have [employer] crystal 08/24/[address] you li ve. Do you have problems with any of the following? None of the above 08/24/2023 Food Insecurity Answer Date Recorded Within the past 12 months, y ou worried that your food would run out before you got money to buy more: Never True 08/24/2023 Within the past 12 months,th e food you bought just didn't last and you didn't have enough money to get more: Never True Transportation Answer Date Recorded In the past 12 months, has l ack of transportation kept you from medical appts, meetings, work or from getting things needed for daily living? No 08/24/2023 Utilities Answer Date Recorded In the past 12 months, has t he electric, gas, oil or water company threatened to shut off services in your home? No 08/24/2023 Sex and Gender Information Value Date Recorded Sex Assigned at Male 01/26/2022 10:18 AM EDT Legal Sex Male 10:18 AM EDT Gender Identity Male 01/26/2022 10:18 AM EDT Sexual Orientation Straight 01/26/2022 10 :18 AM EDT Last Filed Vital Signs Vital Sign Reading Time Taken Comments Blood Pressure 148/89 10/18/2023 2:04 PM EDT Pulse 53 10/18/2023 2:04 PM EDT Temperature 36.3 ??C (97.3 ??F) 10/18/2023 2:04 PM ED T Respiratory Rate 18 10/18/2023 2:04 PM EDT Oxygen Saturation 98% 10/18/2023 2:04 PM EDT Inhaled Oxygen Concentration - - Weight 146 kg (322 lb 9.6 oz) 08/31/2023 2:52 PM EDT Height 180.3 cm (5' 11 ) 08/31/2023 2:52 PM EDT Body Mass Index 44.99 08/31/2023 2:52 PM EDT Plan of Treatment Health Maintenance Due Date Last Done Comments Depression Screening 1988 HIV Screening 1988 Alcohol/Substance Use Screening 2000 DTaP/Tdap/Td Vaccines (8 - Td or Tdap) 08/30/2019 08/29/2009, 04/27/2000, 02/26/1993, Additional history exists COVID-19 Vaccine ( season) 2023 01/23/2022, 04/24/2021, 07/06/2020 Influenza Vaccine (#1) 2023 , 04/24/2021, 06/07/2015, Additional history exists SDOH Screening 08/23/2024 08/24/2023 Tobacco Screening 10/17/2024 10/18/2023 Lipid Panel 10/03/2028 10/04/2023 Zoster Vaccines (1 of 2) 2038 RSV Patients and Patients Aged 60 years or older (1 - 1-dose 75+ series) 10/11/2063 IPV Vaccines Completed 07/27/1990, 03/1989, 11/27/1989, Additional history exists HIB Vaccines Completed 02/26/1993, 02/26/1990 Hepatitis B Vaccines Completed 04/08/2011, 02/26/2011, 08/18/1995, Additional history exists Pneumococcal Vaccine: Pediatrics (0 to 5 Years) and At-Risk Patients (6 to 64 Years) Completed 08/31/2023, 12/11/2011 Hepatitis C Screening Completed 10/04/2023 HPV Vaccines Aged Out No longer eligi ble based on patient's age to complete this topic Hepatitis A Vaccines Aged Out No long er eligible based on patient's age to complete this topic Meningococcal Vaccine Aged Out No moises lilian eligible based on patient's age to complete this topic RSV under 20 months Aged Out No longe r eligible based on patient's age to complete this topic Rotavirus Vaccines Aged Out No longer eligible based on patient's age to complete this topic Procedures Procedure Name Priority Date/Time Associated Diagnosis Comments CBC WITH AUTO DIFFERENTIAL Routine 04/18/2024 12:11 PM EST Hypertriglyceridemi a HEPATITIS C AB W/REFL TO HCV RNA, QN, PCR Routine 10/04/2023 10:37 AM EDT Encounter for preventive care LIPID PANEL, STANDARD Routine 10/04/2023 10:37 AM EDT Encounter for preventive care from Last 3 Months or Most Recently Relevant to Health Maintenance Results * (ABNORMAL) CBC auto differential (04/18/2024 12:11 PM EST) White Blood Count 6.9 4.8 - 10.8 X10*3/uL [facility] Red Blood Count 5.18 4.60 - 5.80 X10*6/uL [facility] Hemoglobin 14.5 14.0 - 18.0 g/dl [facility] Hematocrit 43.8 42.0 - 52.0 % [facility] Mean Corpuscular Volume 84.6 80.0 - 98.0 fL [facility] Mean Corpuscular Hemoglobin 28.0 27.0 - 33.0 pg [facility] Mean Corpuscular HGB Conc 33.1 31.0 - 36.0 g/dl [facility] Red Cell Distribution Width 13.6 11.0 - 16.0 % [facility] Platelet Count 207 160 - 400 X10*3/uL [facility] Mean Platelet Volume 10.6 9.4 - 12.4 fL [facility] Neutrophils Percent Auto 70.5 45 - 73 % [facility] Imm Gran Pct Auto 0.6(H) 0.0 - 0.4 % [facility] Lymphocytes Percent Auto 23.2 20 - 40 % [facility] Monocytes Percent Auto 5.6 2 - 11 % [facility] Eosinophils Percent Auto 0.0 0 - 4 % [facility] Basophils Percent Auto 0.1 0 - 2 % [facility] NRBC Pct Auto 0.0 0.0 - 0.2 /100WBC [facility] Neutrophils Absolute Auto 4.9 2.0 - 8.3 x10*3/uL [facility] Imm Gran Abs Auto 0.04(H) 0.00 - 0.03 X10*3/uL [facility] Lymphocytes Absolute Auto 1.6 1.2 - 4.9 X10*3/uL [facility] Monocytes Absolute Auto 0.4 0.1 - 1.2 X10*3/uL [facility] Eosinophils Absolute Auto 0.0 0.0 - 0.4 X10*3/uL [facility] Basophils Absolute Auto 0.0 0.0 - 0.2 X10*3/uL [facility] NRBC Abs Auto 0.000 0.0 - 0.012 X10*3/uL [facility] 04/18/2024 12:1 1 PM EST 04/18/2024 12:11 PM EST us Generic External Data Provider LAB BLOOD ORDERAB LES Final Result [facility] [address] [place] [address] [phone] * Hepatitis C Antibody with Reflex to HCV, RNA, Quantitative, Real-Time PCR (10/04/2023 10:37 AM EDT) Hepatitis C Antibody Nonreactive Nonreactive [facility] Comment:Antibodies to HCV no t detected; does not exclude early acuteHCV infection. Blood Venous blood specimen / Unknown 10/04/2023 10:37 AM EDT 10/04/2023 10:37 AM EDT us Olya Mathews MD LAB BLOOD ORDERABLES Final Result Performing Organization Address City/[facility]/ZIP Co de Phone Number [facility] [address] [place] [phone] [phone] * (ABNORMAL) Lipid Panel, Standard (10/04/2023 10:37 AM EDT) Triglycerides 515(H) <150 mg/dL [facility] Comment:Desirable Triglyceri de: less than 150 mg/dLBorderline High Triglyceride 150-199 mg/dLHigh Triglyceride: 200-499 mg/dLVery High Triglyceride: greater than or equal to 5OO mg/dL Cholesterol 222(H) <200 mg/dL [facility] Comment:Desirable Cholestero l: less than 200 mg/dLBorderline High Cholesterol: 200-239 mg/dLHigh Cholesterol: greater than 239 mg/dL LDL Cholesterol Calculated TNP <100 mg/dL [facility] Comment:Unable to calculate the LDL. The formula of Friedwald,Blanca, and Sixto is only valid if the triglycerides areless than 400 mg/dl. HDL Cholesterol 29(L) >40 mg/dL [facility] Comment:Desirable HDL: great er than 40 mg/dL Note: This HDL assay may give artificially low results in patients with liver disease. Blood Venous blood specimen / Unknown 10/04/2023 10:37 AM EDT 10/04/2023 10:37 AM EDT us Olya Mathews MD LAB BLOOD ORDERABLES Final Result Performing Organization Address City/[facility]/ZIP Co de Phone Number [facility] [address] [place] [address] [phone] from Last 3 Months or Most Recently Relevant to Health Maintenance Insurance MEDICARE Care Teams Destaticizer Feeder Relationship Specialty Start Date End Date Olya Lew MD [address] [place] [phone] PCP - General Family Medicine 12/08/17
== END 2024-04-18 12:01 | disposition home or self-care (01) ==
LOC: HO.LABR 12:00
PROVIDERS: PCP Internal Medicine
DX: Z79.899 Other long term (current) drug therapy (principal)
CPT/HCPCS: 36415; 85025

== ENCOUNTER 2024-05-09 11:31 | Outpatient (REF) | payer MEDICARE, MEDICAID, SELFPAY ==
[2024-05-09 11:49] LABS: MANUAL DIFF FLAG NO
[2024-05-09 12:09] LABS: Imm Gran Abs Auto 0.03 X10*3/uL (0.00-0.03); Imm Gran Pct Auto 0.6 % (0.0-0.4); Lymphocytes Absolute Auto 1.3 X10*3/uL (1.2-4.9); Lymphocytes Percent Auto 23.7 % (20-40); Mean Corpuscular HGB Conc 34.1 g/dl (31.0-36.0); Mean Corpuscular Hemoglobin 28.3 pg (27.0-33.0); Mean Corpuscular Volume 82.8 fL (80.0-98.0); Mean Platelet Volume 10.7 fL (9.4-12.4); Monocytes Absolute Auto 0.6 X10*3/uL (0.1-1.2); Monocytes Percent Auto 10.9 % (2-11); Neutrophils Absolute Auto 3.5 x10*3/uL (2.0-8.3); Neutrophils Percent Auto 64.8 % (45-73); Platelet Count 231 X10*3/uL (160-400); Red Blood Count 4.95 X10*6/uL (4.60-5.80); Red Cell Distribution Width 13.4 % (11.0-16.0); White Blood Count 5.4 X10*3/uL (4.8-10.8)
--- OUTSIDE RECORDS SUMMARY | 2024-05-09 13:11 | XMS_ITS | Encounter Summary ---
Author Organization [employer] Address [address] [place] [address] Care Team Providers Care X Ray Inspector Name Role Phone Olya Lew MD Primary Care Provide r Reason for Visit * Reason Comments Med Refill Encounter Details Date Type Department Care Team ([facility] st Contact Info) Description 04/19/2024 Refill [facility] MEDICINE [address] [place], [place] [phone] Olya Lew MD [address] [place], [place] [phone] Social History Tobacco Use Types Packs/Day Years Used Date Smoking Tobacco: Some Days Cigarettes Passive Smoke Exposure: Current Smokeless Tobacco: Never Housing Stability Answer Date Recorded What is [...] AM EDT documented as of this encounter Plan of Treatment Not on file documented as of this encounter Visit Diagnoses Not on filedocumented in this encounter Care Teams X Ray Inspector Relationship Specialty Start Date End Date Olya Lew MD [address] [place] [phone] PCP - General Family Medicine 12/08/17 documented as of this encounter
--- OUTSIDE RECORDS SUMMARY | 2024-05-09 13:11 | XMS_ITS | Encounter Summary ---
Author Organization [employer] Address [address] [place] [address] Care Team Providers Care Journalism Instructor Name Role Phone Olya Lew MD Primary Care Provide r Reason for Visit * Reason Onset Date Comments triage 04/01/2022 Encounter Details Date Type Department Care Team ([facility] st Contact Info) Description 04/01/2022 Telephone [facility] MEDICINE [address] [place], [place] [phone] Olya Lew MD [address] [place] [address] triage Social History Tobacco Use Types Packs/Day [...] apts in office today, advised tocome to [facility] when able and Pt agreed. Protocol Used: [...] on filedocumented in this encounter Care Teams Journalism Instructor Relationship Specialty Start Date End Date Olya Lew MD [address] [place] [address] PCP - General Family Medicine 12/08/17 documented as of this encounter
--- OUTSIDE RECORDS SUMMARY | 2024-05-09 13:12 | XMS_ITS | Clinical Summary ---
Author Organization [employer] Address [address] [place] [address] Care Team Providers Care Defence Force Senior Officer Name Role Phone Olya Lew MD Primary Care Provide r Allergies No known active allergies Medications albuterol 108 (90 Base) MCG/ACT inhalerIndicatio ns:Mild intermittent asthma without complication Inhale 2 puffs every 6 (six) hours if needed for wheezing. 18 g 2 09/13/19 24 025 Active fenofibrate (Triglide) 160 MG tabletIndication s:Hypertriglycer idemia Take 1 tablet (160 mg) by mouth Once per day. 30 tablet 11 10/04/19 24 025 Active fluticasone (Flonase) 50 MCG/ACT nasal spray Administer 1 spray into each nostril Once per day. 16 g 10/18/19 24 Active sodium chloride ([place] Nasal [place]) 0.65 % nasal spray Administer 1 spray into each nostril if needed for congestion. 30 mL 10/18/19 24 025 Active omeprazole (PriLOSEC) [address] [place] ns:Gastroesophag eal reflux disease, unspecified whether esophagitis present TAKE 1 CAPSULE BY MOUTH EVERY MORNING 90 capsule 02/17/20 24 Active celecoxib (CeleBREX) 200 MG capsule TAKE 1 CAPSULE (200 MG) BY MOUTH EVERY 12 (TWELVE) HOURS IF NEEDED FOR MILD PAIN. 60 capsule 04/19/19 25 Active celecoxib (CeleBREX) 200 MG capsule TAKE 1 CAPSULE (200 MG) BY MOUTH EVERY 12 (TWELVE) HOURS IF NEEDED FOR MILD PAIN. 60 capsule 02/17/20 24 025 Discontinued Active Problems Problem Noted Date Diagnosed Date [...] Encounters Date Type Department Care Team Description 04/19/2024 Refill [facility] MEDICINE [address] [place] [address] Olya Lew MD 02/17/2024 Refill [facility] MEDICINE [address] [facility] [place] [address] Olya Lew MD Gastroesophageal reflux disease, unspecified whether esophagitis present from Last 3 Months Immunizations Name Administration Dates Next Due DTaP 02/26/1993, 1,07/27/1990,02/26,1988 Hep B, Adolescent or Pediatric 08/18/1995,1994,02/17/1995 Hep [...] HIV Screening 1988 Alcohol/Substance Use Screening 2000 Family Planning (PISQ) 10/11/2003 DTaP/Tdap/Td Vaccines (8 - Td or Tdap) [...] 5 Years) and At-Risk Patients (6 to 49) Years) Completed 08/31/2023, 12/11/2011 Hepatitis C Screening [...] Blood Count 6.9 4.8 - 10.8 X10*3/uL [facility] Red Blood Count 5.18 4.60 - 5.80 X10*6/uL [facility] Hemoglobin 14.5 14.0 - 18.0 g/dl [facility] Hematocrit 43.8 42.0 - 52.0 % [facility] Mean Corpuscular Volume 84.6 80.0 - 98.0 fL [facility] Mean Corpuscular Hemoglobin 28.0 27.0 - 33.0 pg [facility] Mean Corpuscular HGB Conc 33.1 31.0 - 36.0 g/dl [facility] Red Cell Distribution Width 13.6 11.0 - 16.0 % [facility] Platelet Count 207 160 - 400 X10*3/uL [facility] Mean Platelet Volume 10.6 9.4 - 12.4 [facility] Neutrophils Percent Auto 70.5 45 - 73 % [facility] Imm Gran Pct Auto 0.6(H) 0.0 - 0.4 % [facility] Lymphocytes Percent Auto 23.2 20 - 40 % [facility] Monocytes Percent Auto 5.6 2 - 11 % [facility] Eosinophils Percent Auto 0.0 0 - 4 % [facility] Basophils Percent Auto 0.1 0 - 2 % [facility] NRBC Pct Auto 0.0 0.0 - 0.2 /100WBC [facility] Neutrophils Absolute Auto 4.9 2.0 - 8.3 x10*3/uL [facility] Imm Gran Abs Auto 0.04(H) 0.00 - 0.03 X10*3/uL [facility] Lymphocytes Absolute Auto 1.6 1.2 - 4.9 X10*3/uL [facility] Monocytes Absolute Auto 0.4 0.1 - 1.2 X10*3/uL [facility] Eosinophils Absolute Auto 0.0 0.0 - 0.4 X10*3/uL [facility] Basophils Absolute Auto 0.0 0.0 - 0.2 X10*3/uL [facility] NRBC Abs Auto 0.000 0.0 - 0.012 X10*3/uL [facility] 04/18/2024 12:1 1 PM EST 04/18/2024 12:11 PM EST us Generic External Data Provider LAB BLOOD ORDERAB LES Final Result Performing Organization Address City/State/[place] Co de Phone Number [facility] [address] [place] [phone] * Hepatitis C Antibody with Reflex to HCV, RNA, Quantitative, Real-Time PCR (10/04/2023 10:37 AM EDT) Hepatitis C Antibody Nonreactive Nonreactive [facility] Comment:Antibodies to HCV no t detected; does not exclude early acuteHCV infection. Blood Venous blood specimen / Unknown 10/04/2023 10:37 AM EDT 10/04/2023 10:37 AM EDT Olya Mathews MD LAB BLOOD ORDERABLES Final Result Performing Organization Address [facility]/[place] Co de Phone Number [facility] [address] [place] [phone] * (ABNORMAL) Lipid Panel, Standard (10/04/2023 10:37 AM EDT) Triglycerides 515(H) <150 mg/dL [facility] Comment:Desirable Triglyceri de: less than 150 mg/dLBorderline High Triglyceride 150-199 mg/dLHigh Triglyceride: 200-499 mg/dLVery High Triglyceride: greater than or equal to 5OO mg/dL Cholesterol 222(H) <200 mg/dL [facility] Comment:Desirable Cholestero l: less than 200 mg/dLBorderline High Cholesterol: 200-239 mg/dLHigh Cholesterol: greater than 239 mg/dL LDL Cholesterol Calculated TNP <100 mg/dL [facility] Comment:Unable to calculate the LDL. The formula of Friedwald,Blanca, and Sixto is only valid if the triglycerides areless than 400 mg/dl. HDL Cholesterol 29(L) >40 mg/dL [facility] Comment:Desirable HDL: great er than 40 mg/dL Note: This HDL assay may give artificially low results in patients with liver disease. Blood Venous blood specimen / Unknown 10/04/2023 10:37 AM EDT 10/04/2023 10:37 AM EDT Olya Mathews MD LAB BLOOD ORDERABLES Final Result [facility] [address] [place] [address] [phone] from Last 3 Months or Most Recently Relevant to Health Maintenance Insurance MEDICARE * Guarantor: Alan Sanchez Account Type Relation to Patient Date of Phone Billing Address Personal/Family Self [address] Care Teams Defence [employer] Senior Officer Relationship Specialty Start Date End Date Barciona Mathews, Ml, MD [address] [place] [address] PCP - General Family Medicine 12/08/17
== END 2024-05-09 11:32 | disposition home or self-care (01) ==
LOC: HO.LABR 11:31
DX: Z79.899 Other long term (current) drug therapy (principal)
CPT/HCPCS: 36415; 85025

== ENCOUNTER 2024-06-06 10:41 | Outpatient (REF) | payer MEDICARE, MEDICAID, SELFPAY ==
[2024-06-06 11:15] LABS: MANUAL DIFF FLAG NO
[2024-06-06 12:03] LABS: Basophils Percent Auto 0.2 % (0-2); Hematocrit 43.3 % (42.0-52.0); Hemoglobin 14.2 g/dl (14.0-18.0); Imm Gran Abs Auto 0.06 X10*3/uL (0.00-0.03); Imm Gran Pct Auto 0.9 % (0.0-0.4); Lymphocytes Absolute Auto 1.5 X10*3/uL (1.2-4.9); Lymphocytes Percent Auto 23.8 % (20-40); Mean Corpuscular HGB Conc 32.8 g/dl (31.0-36.0); Mean Corpuscular Hemoglobin 27.9 pg (27.0-33.0); Mean Corpuscular Volume 85.1 fL (80.0-98.0); Mean Platelet Volume 11.1 fL (9.4-12.4); Monocytes Absolute Auto 0.3 X10*3/uL (0.1-1.2); Monocytes Percent Auto 4.3 % (2-11); Neutrophils Absolute Auto 4.6 x10*3/uL (2.0-8.3); Neutrophils Percent Auto 70.8 % (45-73); Platelet Count 216 X10*3/uL (160-400); Red Blood Count 5.09 X10*6/uL (4.60-5.80); Red Cell Distribution Width 13.6 % (11.0-16.0); White Blood Count 6.5 X10*3/uL (4.8-10.8)
--- OUTSIDE RECORDS SUMMARY | 2024-06-06 12:55 | XMS_ITS | Encounter Summary ---
Author Organization [employer] Address [address] [place] [address] Care Team Providers Care Manager Therapy Name Role Phone Olya Lew MD Primary Care Provide r Reason for Visit * Reason Onset Date Comments Med Refill 05/17/2024 Encounter Details Date Type Department Care Team (Late st Contact Info) Description 05/17/2024 Refill [facility] [address] [place], [place] [phone] Olya Lew MD [address] [place] [address] Gastroesophageal reflux disease, unspecified whether esophagitis present Social History Tobacco Use Types Packs/Day Years [...] as of this encounter Plan of Treatment Upcoming Encounters Date Type Department Care Team (Late st Contact Info) Description 08/01/2024 1:45 PM EDT Office Visit [facility] MEDICINE [address] [place] [address] Olya Lew MD [address] [place] [address] documented as of this encounter Visit Diagnoses Diagnosis Gastroesophageal reflux disease, unspecified whether esophagitis present documented in this encounter Care Teams Manager Therapy Relationship Specialty Start Date End Date Olya Lew MD [address] [place], [place] [phone] PCP - General Family Medicine 12/08/17 documented as of this encounter
--- OUTSIDE RECORDS SUMMARY | 2024-06-06 12:55 | XMS_ITS | Clinical Summary ---
Author Organization [employer] Address [address] [facility] [address] [place] [address] Care Team Providers Care Cosmetician Apprentice Name Role Phone Olya Lew MD Primary Care Provide r Allergies No known active allergies Medications albuterol 108 (90 Base) MCG/ACT inhalerIndicati ons:Mild intermittent asthma without complication Inhale 2 puffs every 6 (six) hours if needed for wheezing. 18 g 2 09/13/19 24 025 Active fenofibrate (Triglide) 160 MG tabletIndicatio ns:Hypertriglyc eridemia Take 1 tablet (160 mg) by mouth Once per day. 30 tablet 11 10/04/19 24 025 Active fluticasone (Flonase) 50 MCG/ACT nasal spray Administer 1 spray into each nostril Once per day. 16 g 10/18/19 24 Active sodium chloride (Latimer Nasal [place]) 0.65 % nasal spray Administer 1 spray into each nostril if needed for congestion. 30 mL 10/18/19 24 025 Active celecoxib (CeleBREX) 200 MG capsule TAKE 1 CAPSULE (200 MG) BY MOUTH EVERY 12 (TWELVE) HOURS IF NEEDED FOR MILD PAIN. 60 capsule 04/19/19 25 Active omeprazole (PriLOSEC) [address] capsuleIndicati ons:Gastroesoph ageal reflux disease, unspecified whether esophagitis present Take 1 capsule (20 mg) by mouth in the morning. 90 capsule 05/17/19 25 Active omeprazole (PriLOSEC) [address] capsuleIndicati ons:Gastroesoph ageal reflux disease, unspecified whether esophagitis present TAKE 1 CAPSULE BY MOUTH EVERY MORNING 90 capsule 02/17/20 24 025 Discontinued(R eorder (will not trigger notification to Pharmacy)) Active Problems Problem Noted Date Diagnosed Date [...] Encounters Date Type Department Care Team Description 05/17/2024 Refill [facility] [address] [place] [address] Olya Lew MD Gastroesophageal reflux disease, unspecified whether esophagitis present 04/19/2024 Refill [facility] [address] [place] [address] Olya Lew MD from Last 3 Months Immunizations Name Administration Dates Next Due DTaP 02/26/1993, 1,07/27/1990,02/26,1988 Hep B, Adolescent or Pediatric 08/18/1995,1994,02/17/1995 Hep B, adult 04/08/2011,02/26/2011 Hib ([facility]) 02/26/1993,02/26/1990 IPV 07/27/1990, 0,11/27/1989,12/27 Influenza injectable quadriv [...] your housing situation today? I have stacy bonilla 08/24/[address] you li [...] 08/31/2023 2:52 PM EDT Plan of Treatment Upcoming Encounters Date Type Department Care Team (Late st Contact Info) Description 08/01/2024 1:45 PM EDT Office Visit [facility] [address] [place] [address] Olya Lew MD [address] [place] [address] Health Maintenance Due Date Last Done Comments Depression Screening 1988 HIV Screening 1988 Alcohol/Substance Use Screening 2000 Family Planning (PISQ) 10/11/2003 DTaP/Tdap/Td Vaccines (8 - Td or Tdap) 08/30/2019 08/29/2009, 04/27/2000, 02/26/1993, Additional history exists COVID-19 Vaccine ( season) 2023 01/23/2022, 04/24/2021, 07/06/2020 Influenza Vaccine (#1) 2023 2, 04/24/2021, 06/07/2015, Additional history exists SDOH Screening [...] Blood Count 6.9 4.8 - 10.8 X10*3/uL [facility] Red Blood Count 5.18 4.60 - 5.80 X10*6/uL [facility] Hemoglobin 14.5 14.0 - 18.0 g/dl [facility] Hematocrit 43.8 42.0 - 52.0 % [facility] Mean Corpuscular Volume 84.6 80.0 - 98.0 fL [facility] Mean Corpuscular Hemoglobin 28.0 27.0 - 33.0 pg [facility] Mean Corpuscular HGB Conc 33.1 31.0 - 36.0 g/dl [facility] Red Cell Distribution Width 13.6 11.0 - 16.0 % [facility] Platelet Count 207 160 - 400 X10*3/uL [facility] Mean Platelet Volume 10.6 9.4 - 12.4 fL [facility] Neutrophils Percent Auto 70.5 45 - 73 % [facility] Imm Gran Pct Auto 0.6(H) 0.0 - 0.4 % [facility] Lymphocytes Percent Auto 23.2 20 - 40 % [facility] Monocytes Percent Auto 5.6 2 - 11 % [facility] Eosinophils Percent Auto 0.0 0 - 4 % [facility] Basophils Percent Auto 0.1 0 - 2 % [facility] NRBC Pct Auto 0.0 0.0 - 0.2 /100WBC [facility] Neutrophils Absolute Auto 4.9 2.0 - 8.3 x10*3/uL [facility] Imm Gran Abs Auto 0.04(H) 0.00 - 0.03 X10*3/uL [facility] Lymphocytes Absolute Auto 1.6 1.2 - 4.9 X10*3/uL [facility] Monocytes Absolute Auto 0.4 0.1 - 1.2 X10*3/uL [facility] Eosinophils Absolute Auto 0.0 0.0 - 0.4 X10*3/uL [facility] Basophils Absolute Auto 0.0 0.0 - 0.2 X10*3/uL [facility] NRBC Abs Auto 0.000 0.0 - 0.012 X10*3/uL [facility] 04/18/2024 12:1 1 PM EST 04/18/2024 12:11 PM EST us Generic External Data Provider LAB BLOOD ORDERAB LES Final Result [facility] [address] [place] [phone] [phone] * Hepatitis C Antibody with Reflex to HCV, RNA, Quantitative, Real-Time PCR (10/04/2023 10:37 AM EDT) Hepatitis C Antibody Nonreactive Nonreactive [facility] Comment:Antibodies to HCV no t detected; does not exclude early acuteHCV infection. Blood Venous blood specimen / Unknown 10/04/2023 10:37 AM EDT 10/04/2023 10:37 AM EDT us Olya Mathews MD LAB BLOOD ORDERABLES Final Result Performing Organization Address City/[facility]/ZIP Co de Phone Number [facility] [address] [place] [address] [phone] * (ABNORMAL) Lipid Panel, Standard (10/04/2023 10:37 AM EDT) Triglycerides 515(H) <150 mg/dL [facility] Comment:Desirable Triglyceri de: less than 150 mg/dLBorderline High Triglyceride 150-199 mg/dLHigh Triglyceride: 200-499 mg/dLVery High Triglyceride: greater than or equal to 5OO mg/dL Cholesterol 222(H) <200 mg/dL [facility] Comment:Desirable Cholestero l: less than 200 mg/dLBorderline High Cholesterol: 200-239 mg/dLHigh Cholesterol: greater than 239 mg/dL LDL Cholesterol Calculated TNP <100 mg/dL [facility] Comment:Unable to calculate the LDL. The formula of Friedwald,Blanca, and Sixto is only valid if the triglycerides areless than 400 mg/dl. HDL Cholesterol 29(L) >40 mg/dL [facility] Comment:Desirable HDL: great er than 40 mg/dL Note: This HDL assay may give artificially low results in patients with liver disease. Blood Venous blood specimen / Unknown 10/04/2023 10:37 AM EDT 10/04/2023 10:37 AM EDT us Olya Mathews MD LAB BLOOD ORDERABLES Final Result [facility] [address] [place] [phone] from Last 3 Months or Most Recently Relevant to Health Maintenance Insurance [facility] STANDARD MEDICARE Care Teams Cosmetician Apprentice Relationship Specialty Start Date End Date Olya Lew MD [address] [place] [phone] PCP - General Family Medicine 12/08/17
--- OUTSIDE RECORDS SUMMARY | 2024-06-06 12:55 | XMS_ITS | Encounter Summary ---
Author Organization [employer] Address [address] [facility] 7t [place] [address] Care Team Providers Care Behavioral Services Tech Name Role Phone Olya Lew MD Primary Care Provide r Reason for Visit * Reason Onset Date Comments triage 04/01/2022 Encounter Details Date Type Department Care Team ([facility] st Contact Info) Description 04/01/2022 Telephone [facility] [address] [place], [place] [phone] Olya Lew MD [address] [place] [address] triage Social History Tobacco Use Types Packs/Day [...] apts in office today, advised tocome to [facility] when able and Pt agreed. Protocol Used: [...] become worse * Telephone Encounter - Jigar Mickey - 04/01/2022 9:10 AM EST Symptoms: Back Pain - Not From Injury, Body Aches Outcome: Schedule an urgent appointment (within 1 hour) or talk to a nurse or provider soon Reason: Weakness of the leg The caller accepted this outcome documented in this encounter Plan of Treatment Upcoming Encounters Date Type Department Care Team (Late st Contact Info) Description 08/01/2024 1:45 PM EDT Office Visit [facility] [address] [place] [address] Olya Lew MD [address] [place] [address] documented as of this encounter Visit Diagnoses Not on filedocumented in this encounter Care Teams Behavioral Services Tech Relationship Specialty Start Date End Date Olya Lew MD [address] [place] [address] [phone] PCP - General Family Medicine 12/08/17 documented as of this encounter
== END 2024-06-06 10:42 | disposition home or self-care (01) ==
LOC: HO.LABR 10:41
PROVIDERS: PCP Internal Medicine
DX: Z79.899 Other long term (current) drug therapy (principal)
CPT/HCPCS: 36415; 85025

== ENCOUNTER 2024-07-14 10:40 | Outpatient (REF) | payer MEDICARE, MEDICAID, SELFPAY ==
--- OUTSIDE RECORDS SUMMARY | 2024-07-14 11:43 | XMS_ITS | Encounter Summary ---
Author Organization [employer] Address [address] [facility] [address] [facility] [address] 7t [place] [address] Care Team Providers Care College Counselor Name Role Phone Olya Lew MD Primary Care Provide r Reason for Visit * Reason Comments swollen hand Encounter Details Date Type Department Care Team ([facility] st Contact Info) Description 07/14/2024 10:00 AM EDT Office Visit [facility] [address] [place] [address] Acute pain of right wrist (Primary Dx); Right hand pain; Swelling of right hand; Elevated blood pressure reading in office without diagnosis of hypertension; Acute gout of right wrist, unspecified cause Social History Tobacco Use Types Packs/Day Years [...] AM EDT documented as of this encounter Last Filed Vital Signs Vital Sign Reading Time Taken Comments Blood Pressure 154/98 07/14/2024 9:45 AM EDT Pulse 109 07/14/2024 9:45 AM EDT Temperature 36.7 ??C (98.1 ??F) 07/14/2024 9:45 AM ED T Respiratory Rate 20 07/14/2024 9:45 AM EDT Oxygen Saturation 98% 07/14/2024 9:45 AM EDT Inhaled Oxygen Concentration - - Weight - - Height - - Body Mass Index - - documented in this encounter Plan of Treatment Upcoming Encounters Date Type Department Care Team (Late st Contact Info) Description 08/01/2024 1:45 PM EDT Office Visit [facility] [address] [place] [phone] Olya Lew MD [address] [place] [phone] 09/05/2024 3:15 PM EDT Office Visit [facility] [address] [place] [phone] Olya Lew MD [address] [place] [address] [phone] Scheduled Orders Name Type Priority Associated Diagnoses Orde r Schedule Lyme Disease Ab with Reflex to Blot (IgG, IgM) Lab Routine Acute pain of right wrist Right hand pain Swelling of right hand Expected: 07/14/2024, Expires: 07/14/2025 Uric acid Lab Routine Acute pain of right wrist Right hand pain Swelling of right hand Expected: 07/14/2024 (Approximate), Expires: 07/14/2025 documented as of this encounter Visit Diagnoses Diagnosis Acute pain of right wrist- Primary Right hand pain Pain in soft tissues of limb Swelling of right hand Elevated blood pressure reading in office without diagnosis of hypertension Acute gout of right wrist, unspecified cause documented in this encounter Administered Medications Inactive Administered Medications - up to 3 most recent administrations Medication Order MAR Action Action Date Dose Rate Site predniSONE (Deltasone) tablet 40 mg 40 mg, Oral, Once, On Wed07/14/24 at 1015, For 1 doseIndications:Acute pain of right wrist,Right hand pain,Swelling of right hand Given 07/14/2024 10:15 AM EDT 40 mg documented in this encounter Care Teams College Counselor Relationship Specialty Start Date End Date Olya Lew MD [address] [place] [phone] PCP - General Family Medicine 12/08/17 documented as of this encounter
--- OUTSIDE RECORDS SUMMARY | 2024-07-14 11:43 | XMS_ITS | Encounter Summary ---
Author Organization [employer] Address 75 [facility] 7t [place] [address] Care Team Providers Care Corn Sheller Name Role Phone Olya Lew MD Primary Care Provide r Reason for Visit * Reason Onset Date Comments triage 04/01/2022 Encounter Details Date Type Department Care Team ([facility] st Contact Info) Description 04/01/2022 Telephone [facility] [address] [place], [place] [phone] Olya Lew MD [address] [place] [address] triage Social History Tobacco Use Types Packs/Day [...] apts in office today, advised tocome to [facility] when able and Pt agreed. Protocol Used: [...] Description 08/01/2024 1:45 PM EDT Office Visit [facility] [address] [place] [phone] Olya Lew MD [address] [place] [phone] 09/05/2024 3:15 PM EDT Office Visit [facility] [address] [place] [address] Olya Lew MD [address] [place] [phone] documented as of this encounter Visit Diagnoses Not on filedocumented in this encounter Care Teams Corn Sheller Relationship Specialty Start Date End Date Olya Lew MD [address] [place] [phone] PCP - General Family Medicine 12/08/17 documented as of this encounter
--- OUTSIDE RECORDS SUMMARY | 2024-07-14 11:43 | XMS_ITS | Encounter Summary ---
Author Organization [employer] Address [address] [facility] [address] [place] [address] Care Team Providers Care Compliance Engineer Products Name Role Phone Olya Lew MD Primary Care Provide r Encounter Details Date Type Department Care Team (Latest Contact Info) Description 07/14/2024 Travel Social History Tobacco Use Types Packs/Day Years [...] Upcoming Encounters Date Type Department Care Team ( st Contact Info) Description 08/01/2024 1:45 PM EDT Office Visit [address] [phone] Olya Lew MD [address] [place] [address] [phone] 09/05/2024 3:15 PM EDT Office Visit [facility] [address] [place] [phone] Olya Lew MD [address] [place] [address] [phone] documented as of this encounter Visit Diagnoses Not on filedocumented in this encounter Care Teams Compliance Engineer Products Relationship Specialty Start Date End Date Olya Lew MD [address] [place] [address] [phone] PCP - General Family Medicine 12/08/17 documented as of this encounter
--- OUTSIDE RECORDS SUMMARY | 2024-07-14 11:44 | XMS_ITS | Clinical Summary ---
Author Organization [employer] Address [address] [facility] [address] 7[address] [place] [address] Care Team Providers Care Flood Control Engineer Name Role Phone Olya Lew MD Primary [...] 16 g 10/18/19 24 Active sodium chloride (Harris Nasal [place]) 0.65 % nasal spray Administer 1 spray into each nostril if needed for congestion. 30 mL 10/18/19 24 025 Active omeprazole (PriLOSEC) [address] [place] ns:Gastroesophag eal reflux disease, unspecified whether esophagitis present Take 1 capsule (20 mg) by mouth in the morning. 90 capsule 05/17/19 25 Active celecoxib (CeleBREX) 200 MG capsule TAKE 1 CAPSULE (200 MG) BY MOUTH EVERY 12 (TWELVE) HOURS IF NEEDED FOR MILD PAIN. 60 capsule 06/16/19 25 Active predniSONE (Deltasone) 20 MG tablet Take 2 tablets (40 mg) by mouth Once per day for 4 days. 8 tablet 07/15/19 25 025 Active Blood Pressure kit 1 each 2 times daily. 1 kit 07/15/19 25 026 Active cloZAPine (Clozaril) 200 MG tablet Take 400 mg by mouth at bedtime. Active cloZAPine (Clozaril) 100 MG tablet Take by mouth in the morning. Active cloZAPine (Clozaril) 25 MG tablet Take 25 mg by mouth in the morning. Active lamoTRIgine (LaMICtal) 100 MG tablet 100 mg at bedtime. Active lamoTRIgine (LaMICtal) 25 MG tablet Take 75 mg by mouth in the morning. Active QUEtiapine (SEROquel) 25 MG tablet Take by mouth if needed at bedtime. Active celecoxib (CeleBREX) 200 MG capsule TAKE 1 CAPSULE (200 MG) BY MOUTH EVERY 12 (TWELVE) HOURS IF NEEDED FOR MILD PAIN. 60 capsule 04/19/19 25 025 Discontinued Hospital, Clinic, or Other Facility Administered Medication Ordered Dose Route Frequency Start Date End Date Status predniSONE (Deltasone) tablet 40 mgIndications:Acute pain of right wrist,Right hand pain,Swelling of right hand 40 mg PO Once 07/14/2024 07/15/19 25 Ended Active Problems Problem Noted Date Diagnosed Date [...] Encounters Date Type Department Care Team Description 07/14/2024 10:00 AM EDT Office Visit [facility] [address] [place] [address] Acute pain of right wrist (Primary Dx); Right hand pain; Swelling of right hand; Elevated blood pressure reading in office without diagnosis of hypertension; Acute gout of right wrist, unspecified cause 07/14/2024 Travel 06/14/2024 Refill [facility] [address] [place] [address] Olya Lew MD 05/17/2024 Refill [facility] [address] [place] [address] Olya Lew MD Gastroesophageal reflux disease, unspecified whether esophagitis present 04/19/2024 Refill [facility] [address] [place] [address] Olya Lew MD from Last 3 Months [...] is your housing situation today? I have stacyyue crystal 08/24/[address] you [...] Description 08/01/2024 1:45 PM EDT Office Visit [facility] [address] [place] [phone] Olya Lew MD [address] [place] [phone] 09/05/2024 3:15 PM EDT Office Visit [facility] [address] [place] [address] [phone] Olya Lew MD [address] [place], [place] [phone] Health Maintenance Due Date Last Done Comments Depression Screening 1988 HIV Screening 1988 Alcohol/Substance Use Screening 2000 Family Planning (PISQ) 10/11/2003 DTaP/Tdap/Td Vaccines (8 - Td or Tdap) 08/30/2019 08/29/2009, 04/27/2000, 02/26/1993, Additional history exists COVID-19 Vaccine ( season) 2023 01/23/2022, 04/24/2021, 07/06/2020 Influenza Vaccine (#1) 2023 , 04/24/2021, 06/07/2015, Additional history exists SDOH Screening 08/23/2024 08/24/2023 Tobacco Screening 07/14/2025 07/14/2024 Lipid Panel 10/03/2028 10/04/2023 Zoster Vaccines (1 [...] Blood Count 6.9 4.8 - 10.8 X10*3/uL [facility] Red Blood Count 5.18 4.60 - 5.80 X10*6/uL [facility] Hemoglobin 14.5 14.0 - 18.0 g/dl [facility] Hematocrit 43.8 42.0 - 52.0 % [facility] Mean Corpuscular Volume 84.6 80.0 - 98.0 fL [facility] Mean Corpuscular Hemoglobin 28.0 27.0 - 33.0 pg [facility] Mean Corpuscular HGB Conc 33.1 31.0 - 36.0 g/dl [facility] Red Cell Distribution Width 13.6 11.0 - 16.0 % [facility] Platelet Count 207 160 - 400 X10*3/uL [facility] Mean Platelet Volume 10.6 9.4 - 12.4 fL [facility] Neutrophils Percent Auto 70.5 45 - 73 % [facility] Imm Gran Pct Auto 0.6(H) 0.0 - 0.4 % [facility] Lymphocytes Percent Auto 23.2 20 - 40 % [facility] Monocytes Percent Auto 5.6 2 - 11 % [facility] Eosinophils Percent Auto 0.0 0 - 4 % [facility] Basophils Percent Auto 0.1 0 - 2 % [facility] NRBC Pct Auto 0.0 0.0 - 0.2 /100WBC [facility] Neutrophils Absolute Auto 4.9 2.0 - 8.3 x10*3/uL [facility] Imm Gran Abs Auto 0.04(H) 0.00 - 0.03 X10*3/uL [facility] Lymphocytes Absolute Auto 1.6 1.2 - 4.9 X10*3/uL [facility] Monocytes Absolute Auto 0.4 0.1 - 1.2 X10*3/uL [facility] Eosinophils Absolute Auto 0.0 0.0 - 0.4 X10*3/uL [facility] Basophils Absolute Auto 0.0 0.0 - 0.2 X10*3/uL [facility] NRBC Abs Auto 0.000 0.0 - 0.012 X10*3/uL [facility] 04/18/2024 12:1 1 PM EST 04/18/2024 12:11 PM EST us Generic External Data Provider LAB BLOOD ORDERAB LES Final Result Performing Organization Address [facility] Co de Phone Number [facility] [address] [place] [phone] * Hepatitis C Antibody with Reflex to HCV, RNA, Quantitative, Real-Time PCR (10/04/2023 10:37 AM EDT) Pathologist [facility] Hepatitis C Antibody Nonreactive Nonreactive [facility] Comment:Antibodies to HCV no t detected; does not exclude early acuteHCV infection. Blood Venous blood specimen / Unknown 10/04/2023 10:37 AM EDT 10/04/2023 10:37 AM EDT us Olya Mathews MD LAB BLOOD ORDERABLES Final Result Performing Organization Address [facility] Co de Phone Number [facility] [address] [place] [phone] * (ABNORMAL) Lipid Panel, Standard (10/04/2023 10:37 AM EDT) Triglycerides 515(H) <150 mg/dL [facility] Comment:Desirable Triglyceri de: less than 150 mg/dLBorderline High Triglyceride 150-199 mg/dLHigh Triglyceride: 200-499 mg/dLVery High Triglyceride: greater than or equal to 5OO mg/dL Cholesterol 222(H) <200 mg/dL [facility] Comment:Desirable Cholestero l: less than 200 mg/dLBorderline High Cholesterol: 200-239 mg/dLHigh Cholesterol: greater than 239 mg/dL LDL Cholesterol Calculated TNP <100 mg/dL [facility] Comment:Unable to calculate the LDL. [...] Mathews MD LAB BLOOD ORDERABLES Final Result [facility] [address] [place] [address] [phone] from Last 3 Months or Most Recently Relevant to Health Maintenance Insurance [place] [address] [place] [phone] Care Teams Flood Control Engineer Relationship Specialty Start Date End Date Olya Lew MD [address] [place] [phone] PCP - General Family Medicine 12/08/17
[2024-07-14 13:45] LABS: Uric Acid 9.2 mg/dL (3.4-7.0)
[2024-07-17 19:07] LABS: Lyme Abs Screen <0.90 index
== END 2024-07-14 10:41 | disposition home or self-care (01) ==
LOC: HO.HHCL 10:40
PROVIDERS: Visit Provider Emergency Medicine
DX: M25.531 Pain in right wrist (principal); M79.671 Pain in right foot; M79.89 Other specified soft tissue disorders
CPT/HCPCS: 36415; 84550; 86617; 86618

== ENCOUNTER 2024-07-24 08:40 | Outpatient (REF) | payer MEDICARE, MEDICAID, SELFPAY ==
[2024-07-24 08:58] LABS: MANUAL DIFF FLAG NO
[2024-07-24 09:11] LABS: Basophils Percent Auto 0.1 % (0-2); Hematocrit 44.4 % (42.0-52.0); Hemoglobin 14.4 g/dl (14.0-18.0); Imm Gran Abs Auto 0.07 X10*3/uL (0.00-0.03); Imm Gran Pct Auto 0.9 % (0.0-0.4); Lymphocytes Absolute Auto 1.9 X10*3/uL (1.2-4.9); Lymphocytes Percent Auto 25.3 % (20-40); Mean Corpuscular HGB Conc 32.4 g/dl (31.0-36.0); Mean Corpuscular Hemoglobin 27.5 pg (27.0-33.0); Mean Corpuscular Volume 84.7 fL (80.0-98.0); Mean Platelet Volume 10.6 fL (9.4-12.4); Monocytes Absolute Auto 0.5 X10*3/uL (0.1-1.2); Monocytes Percent Auto 6.3 % (2-11); Neutrophils Absolute Auto 5.1 x10*3/uL (2.0-8.3); Neutrophils Percent Auto 67.4 % (45-73); Platelet Count 240 X10*3/uL (160-400); Red Blood Count 5.24 X10*6/uL (4.60-5.80); Red Cell Distribution Width 13.8 % (11.0-16.0); White Blood Count 7.5 X10*3/uL (4.8-10.8)
--- OUTSIDE RECORDS SUMMARY | 2024-07-24 09:15 | XMS_ITS | Encounter Summary ---
Author Organization [employer] Address 75 [facility] 7t [place] [address] Care Team Providers Care Heat Treater Name Role Phone Olya Lew MD Primary Care Provide r Reason for Visit * Reason Onset Date Comments triage 04/01/2022 Encounter Details Date Type Department Care Team ([facility] st Contact Info) Description 04/01/2022 Telephone [facility] [address] [place], [place] [phone] Olya Lew MD [address] [place] [address] triage Social History Tobacco Use Types Packs/Day [...] apts in office today, advised tocome to [facility] when able and Pt agreed. Protocol [...] 08/01/2024 1:45 PM EDT Office Visit [facility] [address] [place] [phone] Olya Lew MD [address] [place] [phone] 09/05/2024 3:15 PM EDT Office Visit [facility] [address] [place] [phone] Olya Lew MD [address] [place] [phone] documented as of this encounter Visit Diagnoses Not on filedocumented in this encounter Care Teams Heat Treater Relationship Specialty Start Date End Date Olya Lew MD [address] [place] [phone] PCP - General Family Medicine 12/08/17 documented as of this encounter
--- OUTSIDE RECORDS SUMMARY | 2024-07-24 09:15 | XMS_ITS | Clinical Summary ---
Author Organization [employer] Address [address] [place] [address] Care Team Providers Care Vascular Tech Name Role Phone Olya Lew MD [...] 16 g 10/18/19 24 Active sodium chloride (Racine Nasal [place]) 0.65 % nasal spray Administer 1 spray into each nostril if needed for congestion. 30 mL 10/18/19 24 025 Active omeprazole (PriLOSEC) [address] [place] ns:Gastroesophag eal reflux disease, unspecified whether esophagitis present Take 1 capsule (20 mg) by mouth in the morning. 90 capsule 05/17/19 25 Active Blood Pressure kit 1 each 2 [...] IF NEEDED FOR MILD PAIN. 60 capsule 07/20/19 25 Active celecoxib (CeleBREX) 200 MG capsule TAKE 1 CAPSULE (200 MG) BY MOUTH EVERY 12 (TWELVE) HOURS IF NEEDED FOR MILD PAIN. 60 capsule 06/16/19 25 025 Discontinued predniSONE (Deltasone) 20 MG tablet Take 2 tablets (40 mg) by mouth Once per day for 4 days. 8 tablet 07/15/19 25 025 Hospital, Clinic, or Other Facility Administered Medication [...] Encounters Date Type Department Care Team Description 07/18/2024 Refill [facility] [address] [place] [address] Olya Lew MD 07/18/2024 Telephone [facility] [address] [place] [address] Brian Severino MD 07/14/2024 10:00 AM EDT Office Visit [facility] [address] [place] [address] Brian Severino MD Acute pain of right wrist (Primary Dx); Right hand pain; Swelling of right hand; Elevated blood pressure reading in office without diagnosis of hypertension; Acute gout of right wrist, unspecified cause 07/14/2024 Travel 06/14/2024 Refill [facility] [address] [place] [address] Olya Lew MD 05/17/2024 Refill [facility] [address] [place] [address] Olya Lew MD Gastroesophageal reflux disease, unspecified [...] Description 08/01/2024 1:45 PM EDT Office Visit [facility] [address] [place] [address] Olya Lew MD [address] [place] [phone] 09/05/2024 3:15 PM EDT Office Visit [address] [address] Olya Lew MD [address] [place] [address] Health Maintenance Due Date Last Done Comments [...] Procedure Name Priority Date/Time Associated Diagnosis Comments URIC ACID Routine 07/14/2024 10:42 AM EDT Acute pain of right wrist Right hand pain Swelling of right hand LYME DISEASE AB W/REFL TO BLOT (IGG, IGM) Routine 07/14/2024 10:42 AM EDT Acute pain of right wrist Right hand pain Swelling of right hand HEPATITIS C AB W/REFL TO HCV RNA, QN, PCR Routine 10/04/2023 10:37 AM EDT Encounter for preventive care LIPID PANEL, STANDARD Routine 10/04/2023 10:37 AM EDT Encounter for preventive care from Last 3 Months or Most Recently Relevant to Health Maintenance Results * Lyme Disease Ab with Reflex to Blot (IgG, IgM) (07/14/2024 10:42 AM EDT) Lyme Antibody Screen <0.90 index [facility] Comment:Index Interpretation ----- < 0.90 Negative 0.90-1.09 Equivocal > 1.09 PositiveAs recommended by the Food and Drug Administration(FDA), all samples with positive or equivocalresults in a Borrelia burgdorferi antibody screenwill be tested using a blot method. Positive orequivocal screening test results should not beinterpreted as truly positive until verified as suchusing a supplemental assay (e.g., B. burgdorferi blot).The screening test and/or blot for B. burgdorferiantibodies may be falsely negative in early stagesof Lyme disease, including the period when erythemamigrans is apparent.THIS TEST WAS PERFORMED AT:[facility] [place] [phone] RAMIREZ MD Lyme Blot [facility] 07/14/2024 10:4 2 AM EDT 07/14/2024 1:08 PM EDT us Brian Severino MD LAB BLOOD ORDERABLES Final Resul t Performing Organization Address [facility]/ZIP Co de Phone Number [facility] [address] [place] [phone] * (ABNORMAL) Uric acid (07/14/2024 10:42 AM EDT) Pathologist [facility] Uric Acid 9.2(H) 3.4 - 7.0 mg/dL [facility] Blood Venous blood specimen / Unknown 07/14/2024 10:42 AM EDT 07/14/2024 1:08 PM EDT us Brian Severino MD LAB BLOOD ORDERABLES Final Resul t Performing Organization Address City/[facility] Co de Phone Number [facility] [address] [place] [address] [phone] * Hepatitis C Antibody with Reflex to HCV, RNA, Quantitative, Real-Time PCR (10/04/2023 10:37 AM EDT) Pathologist [facility] Hepatitis C Antibody Nonreactive Nonreactive [facility] Comment:Antibodies to HCV no t detected; does not exclude early acuteHCV infection. Blood Venous blood specimen / Unknown 10/04/2023 10:37 AM EDT 10/04/2023 10:37 AM EDT us Olya Mathews MD LAB BLOOD ORDERABLES Final Result [facility] [address] [place] [phone] * (ABNORMAL) Lipid Panel, Standard (10/04/2023 10:37 AM EDT) Pathologist [facility] Triglycerides 515(H) <150 mg/dL [facility] Comment:Desirable Triglyceri de: less than 150 mg/dLBorderline High Triglyceride 150-199 mg/dLHigh Triglyceride: 200-499 mg/dLVery High Triglyceride: greater than or equal to 5OO mg/dL Cholesterol 222(H) <200 mg/dL [facility] Comment:Desirable Cholestero l: less than 200 mg/dLBorderline High Cholesterol: 200-239 mg/dLHigh Cholesterol: greater than 239 mg/dL LDL Cholesterol Calculated TNP <100 mg/dL [facility] Comment:Unable to calculate the LDL. The formula of Friedwald,Blanca, and Sixto is only valid if the triglycerides areless than 400 mg/dl. HDL Cholesterol 29(L) >40 mg/dL [facility] Comment:Desirable HDL: great er than 40 mg/dL Note: This HDL assay may give artificially low results in patients with liver disease. Blood Venous blood specimen / Unknown 10/04/2023 10:37 AM EDT 10/04/2023 10:37 AM EDT us Olya Mathews MD LAB BLOOD ORDERABLES Final Result [facility] [address] [place] [phone] [phone] from Last 3 Months or Most Recently Relevant to Health Maintenance Insurance MEDICARE Care Teams Vascular Tech Relationship Specialty Start Date End Date Olya Lew MD [address] [place] [phone] PCP - General Family Medicine 12/08/17
--- OUTSIDE RECORDS SUMMARY | 2024-07-24 09:15 | XMS_ITS | Encounter Summary ---
Author Organization [employer] Address [address] 7[address] [place] [address] Care Team Providers Care Repair Servicer Name Role Phone Olya Lew MD Primary Care Provide r Reason for Visit * Reason Comments Med Refill Encounter Details Date Type Department Care Team ([facility] st Contact Info) Description 07/18/[address] [facility] [address] [place], [place] [phone] Olya Lew MD [address] [place], [place] [phone] Social History Tobacco Use Types Packs/Day Years [...] 1:45 PM EDT Office Visit [facility] [address] [place] [address] Olya Lwe MD [address] [place] [phone] 09/05/2024 3:15 PM EDT Office Visit [facility] [address] [place] [address] Olya Lew MD [address] [place] [address] [phone] documented as of this encounter Visit Diagnoses Not on filedocumented in this encounter Care Teams Repair Servicer Relationship Specialty Start Date End Date Olya Lew MD [address] [place] [address] [phone] PCP - General Family Medicine 12/08/17 documented as of this encounter
== END 2024-07-24 08:41 | disposition home or self-care (01) ==
LOC: HO.LABR 08:40
PROVIDERS: PCP Internal Medicine
DX: Z79.899 Other long term (current) drug therapy (principal)
CPT/HCPCS: 36415; 85025

== ENCOUNTER 2024-08-04 11:26 | Outpatient (REF) | payer MEDICARE, MEDICAID, SELFPAY ==
--- NOTE | ~2024-08-04 | XR_ITS ---
EXAMINATION: XR HAND 3 OR MORE VIEWS RIGHT HISTORY: pain COMPARISON: Comparison is made with the prior examination dated 03/17/2021. FINDINGS: Three views of the right hand are submitted. Osseous mineralization is normal. There is no fracture or dislocation. The joint spaces are preserved. The soft tissues are unremarkable. XR/XR hand RT min 3V IMPRESSION: Unremarkable examination of the right hand. Electronically signed by: Jorden Gilmore MD 08/04/2024 01:10 PM EDT
--- OUTSIDE RECORDS SUMMARY | 2024-08-04 11:56 | XMS_ITS | Clinical Summary ---
Author Organization [employer] Address [address] [facility] 7t [place] [address] Care Team Providers Care Title Agent Name Role Phone Olya Lew MD Primary [...] 16 g 10/18/19 24 Active sodium chloride (Schley Nasal [place]) 0.65 % nasal spray Administer 1 spray [...] by mouth if needed at bedtime. Active losartan (Cozaar) 25 MG tabletIndication s:Primary hypertension Take 1 tablet (25 mg) by mouth Once per day. 30 tablet 11 08/02/19 25 026 Active diclofenac (Cataflam) 50 MG tabletIndication s:Arthritis of right hand Take 1 tablet (50 mg) by mouth 3 times daily. 90 tablet 08/02/19 25 026 Active allopurinol (Zyloprim) 100 MG tabletIndication s:Chronic gouty arthritis Take 1 tablet (100 mg) by mouth Once per day. 30 tablet 3 08/02/19 25 026 Active celecoxib (CeleBREX) 200 MG capsule TAKE 1 CAPSULE (200 MG) BY MOUTH EVERY 12 (TWELVE) HOURS IF NEEDED FOR MILD PAIN. 60 capsule 06/16/19 25 025 Discontinued predniSONE (Deltasone) 20 MG tablet Take 2 tablets (40 mg) by mouth Once per day for 4 days. 8 tablet 07/15/19 25 025 celecoxib (CeleBREX) 200 MG capsule TAKE 1 CAPSULE (200 MG) BY MOUTH EVERY 12 (TWELVE) HOURS IF NEEDED FOR MILD PAIN. 60 capsule 07/20/19 25 025 Discontinued Hospital, Clinic, or Other Facility Administered Medication Ordered Dose Route Frequency Start Date End Date Status predniSONE (Deltasone) tablet 40 mgIndications:Acute pain of right wrist,Right hand pain,Swelling of right hand 40 mg PO Once 07/14/2024 07/15/19 25 Ended Active Problems Problem Noted Date Diagnosed Date Arthritis of right hand 08/01/2024 Assessment & Plan (08/01/2024 4:15 PM EDT): Patient is not on a gout flare right now and he still complains of pain on his right hand I will order an x-ray and I will contact him with results COVID-19 virus infection 10/18/2023 Assessment & Plan [...] left side 08/31/2023 Chronic gouty arthritis 06/07/2015 Assessment & Plan (08/01/2024 4:15 PM EDT): I decided to start patient on allopurinol 100 mg and I will recheck uric acid on next appointment Hypoalphalipoproteinemia 12/11/2011 Hypertension 12/11/2011 Assessment & Plan (08/01/2024 4:14 PM EDT): Extensive discussion about low-sodium diet and weight loss done today I will start patient on losartan 25 mg daily Patient has an upcoming appointment with me I asked him to log his blood pressure Mixed hyperlipidemia 09/08/2011 Bipolar disorder 08/13/2011 Smoker 08/04/2011 Obesity 05/04/2011 Encounters Date Type Department Care Team Description 08/01/2024 1:45 PM EDT Office Visit [facility] [address] [place] [phone] Olya Lew MD Chronic gouty arthritis (Primary Dx); Arthritis of right hand; Primary hypertension 08/01/2024 Travel 07/31/2024 Telephone [facility] [address] [place] [phone] Olya Lew MD Chart Prep 07/25/2024 Patient Outreach [facility] [address] [place] [phone] Olya Lew MD Pre-visit Planning (Pre visit planning LVM ) 07/18/2024 Refill [facility] [address] [place] [address] Olya Lew MD 07/18/2024 Telephone [facility] [address] [place] [address] [phone] Brian Severino MD 07/14/2024 10:00 AM EDT Office Visit [facility] [address] [place] [address] Brian Severino MD Acute pain of right wrist (Primary Dx); Right hand pain; Swelling of right hand; Elevated blood pressure reading in office without diagnosis of hypertension; Acute gout of right wrist, unspecified cause 07/14/2024 Travel 06/14/2024 Refill [facility] [address] [place] [address] Olya Lew MD 05/17/2024 Refill [facility] [address] [place], [place] [phone] Olya Lew MD Gastroesophageal reflux disease, unspecified [...] uit: Not Asked; Counseling Given: Not Answered Alcohol Use Standard Drinks/Week Comments Never 0 (1 standard drink = 0.6 oz pur e alcohol) Depression Answer Date Recorded Patient Health Questionnaire-9 Score 8 08/01/2024 Patient Health Questionnaire-9 Score 8 08/01/2024 Last PHQ-9: Questionnaire Data Not on file 0 08/01/2024 Housing Stability Answer Date Recorded What is [...] off services in your home? No 08/24/2023 Depression Answer Date Recorded Patient Health Questionnaire-2 Score 1 08/01/2024 Internet Access Answer Date Recorded Internet Access Q1 No 08/01/2024 Internet Access Q2 I do not want or need it 08/2024 Sex and Gender Information Value Date Recorded Sex Assigned at Male 01/26/2022 10:18 AM EDT Legal Sex Male 10:18 AM EDT Gender Identity Male 01/26/2022 10:18 AM EDT Sexual Orientation Straight 01/26/2022 10 :18 AM EDT Last Filed Vital Signs Vital Sign Reading Time Taken Comments Blood Pressure 158/96 08/01/2024 1:42 PM EDT Pulse 107 08/01/2024 1:42 PM EDT Temperature 35.6 ??C (96.1 ??F) 08/01/2024 1:42 PM ED T Respiratory Rate 20 08/01/2024 1:42 PM EDT Oxygen Saturation 98% 07/14/2024 9:45 AM EDT Inhaled Oxygen Concentration - - Weight 146 kg (322 lb 9.6 oz) 08/31/2023 2:52 PM EDT Height 180.3 cm (5' 11 ) 08/01/2024 1:42 PM EDT Body Mass Index 44.99 08/31/2023 2:52 PM EDT Plan of Treatment Upcoming Encounters Date Type Department Care Team (Late st Contact Info) Description 09/05/2024 3:15 PM EDT Office Visit [facility] [address] [place] [address] Olya Lew MD [address] [place] [address] Health Maintenance Due Date Last Done Comments HIV Screening 1988 Alcohol/Substance Use Screening 2000 Family Planning (PISQ) 10/11/2003 DTaP/Tdap/Td Vaccines (8 - Td or Tdap) 08/30/2019 08/29/2009, 04/27/2000, 02/26/1993, Additional history exists COVID-19 Vaccine ( season) 2023 01/23/2022, 04/24/2021, 07/06/2020 Influenza Vaccine (#1) 2023 2, 04/24/2021, 06/07/2015, Additional history exists Depression Screening 08/01/2025 08/01/2024, 08/02/19 SDOH Screening 08/01/2025 08/01/2024 Tobacco Screening 08/01/2025 08/01/2024 Lipid Panel 10/03/2028 10/04/2023 Zoster Vaccines (1 [...] AM EDT) Lyme Antibody Screen <0.90 index [facility] Comment:Index Interpretation ----- < 0.90 [...] when erythemamigrans is apparent.THIS TEST WAS PERFORMED AT:[address] [place] [phone] RAMIREZ MD Lyme Blot TNP [facility] 07/14/2024 10:4 2 AM EDT 07/14/2024 1:08 PM EDT us Brian Severino MD LAB BLOOD ORDERABLES Final Resul t [facility] [address] [place] [phone] [phone] * (ABNORMAL) Uric acid (07/14/2024 10:42 AM EDT) Uric Acid 9.2(H) 3.4 - 7.0 mg/dL [facility] Blood Venous blood specimen / Unknown 07/14/2024 10:42 AM EDT 07/14/2024 1:08 PM EDT us Brian Severino MD LAB BLOOD ORDERABLES Final Resul t Performing Organization Address [facility] [place] [facility]/ZIP Co de Phone Number [facility] [address] [place] [phone] * Hepatitis C Antibody with Reflex to HCV, RNA, Quantitative, Real-Time PCR (10/04/2023 10:37 AM EDT) Pathologist [facility] Hepatitis C Antibody Nonreactive Nonreactive [facility] Comment:Antibodies to HCV no t detected; does not exclude early acuteHCV infection. Blood Venous blood specimen / Unknown 10/04/2023 10:37 AM EDT 10/04/2023 10:37 AM EDT us Olya Mathews MD LAB BLOOD ORDERABLES Final Result Performing Organization Address [facility] Co de Phone Number [facility] [address] [place] [phone] * (ABNORMAL) Lipid Panel, Standard (10/04/2023 10:37 AM EDT) Triglycerides 515(H) <150 mg/dL [facility] Comment:Desirable Triglyceri de: less than 150 mg/dLBorderline High Triglyceride 150-199 mg/dLHigh Triglyceride: 200-499 mg/dLVery High Triglyceride: greater than or equal to 5OO mg/dL Cholesterol 222(H) <200 mg/dL [facility] Comment:Desirable Cholestero l: less than 200 mg/dLBorderline High Cholesterol: 200-239 mg/dLHigh Cholesterol: greater than 239 mg/dL LDL Cholesterol Calculated TNP <100 mg/dL [facility] Comment:Unable to calculate the LDL. The formula of Friedwald,Blanca, and Sixto is only valid if the triglycerides areless than 400 mg/dl. HDL Cholesterol 29(L) >40 mg/dL [facility] Comment:Desirable HDL: great er than 40 mg/dL Note: This HDL assay may give artificially low results in patients with liver disease. Blood Venous blood specimen / Unknown 10/04/2023 10:37 AM EDT 10/04/2023 10:37 AM EDT Olya Mathews MD LAB BLOOD ORDERABLES Final Result [facility] [address] [place] [phone] [phone] from Last 3 Months or Most Recently Relevant to Health Maintenance Insurance MEDICARE Care Teams Title Agent Relationship Specialty Start Date End Date Olya Lew MD [address] [place] [phone] PCP - General Family Medicine 12/08/17
--- OUTSIDE RECORDS SUMMARY | 2024-08-04 11:56 | XMS_ITS | Encounter Summary ---
Author Organization [employer] Address [address] [place] [address] Care Team Providers Care 3Rd Mate Name Role Phone Olya Lew MD Primary Care Provide r Encounter Details Date Type Department Care Team (Latest Contact Info) Description 08/01/2024 Travel Social History Tobacco Use Types Packs/Day Years Used Date Smoking Tobacco: Some Days Cigarettes Passive Smoke Exposure: Current Smokeless Tobacco: Never Alcohol Use Standard Drinks/Week Comments Never 0 [...] Description 09/05/2024 3:15 PM EDT Office Visit [facility] [address] [place] [address] Olya Lew MD [address] [place] [phone] documented as of this encounter Visit Diagnoses Not on filedocumented in this encounter Additional Health Concerns Assessment Noted Time PHQ-9 Depression Total Score: 8 08/02/19 25 1:50 PM EDT documented as of this encounter Care Teams 3Rd Mate Relationship Specialty Start Date End Date Olya Lew MD [address] [place] [phone] PCP - General Family Medicine 12/08/17 documented as of this encounter
--- OUTSIDE RECORDS SUMMARY | 2024-08-04 11:56 | XMS_ITS | Encounter Summary ---
Author Organization [employer] Address [address] [place] [address] Care Team Providers Care Inspector And Clipper Name Role Phone Olya Lew MD Primary Care Provide r Reason for Visit * Reason Onset Date Comments triage 04/01/2022 Encounter Details Date Type Department Care Team ([facility] st Contact Info) Description 04/01/2022 Telephone [facility] [address] [place], [place] [phone] Olya Lew MD [address] [place] [address] triage Social History Tobacco Use Types Packs/Day [...] apts in office today, advised [facility]come [facility] when able and Pt agreed. Protocol [...] Description 09/05/2024 3:15 PM EDT Office Visit [facility] [address] [place] [address] Olya Lew MD [address] [place] [address] documented as of this encounter Visit Diagnoses Not on filedocumented in this encounter Care Teams Inspector And Clipper Relationship Specialty Start Date End Date Olya Lew MD [address] [place], [place] [phone] PCP - General Family Medicine 12/08/17 documented as of this encounter
--- OUTSIDE RECORDS SUMMARY | 2024-08-04 11:56 | XMS_ITS | Encounter Summary ---
Author Organization [employer] Address [address] [place] [address] Care Team Providers Care Subcontract Manager Name Role Phone Olya Lew MD Primary Care Provide r Reason for Visit * Reason Onset Date Comments Chart Prep 07/31/2024 Encounter Details Date Type Department Care Team ([facility] Contact Info) Description 07/31/2024 Telephone [facility] [address] [place] [address] Olya Lew MD [address] [place] [address] Chart Prep Social History Tobacco Use Types Packs/Day Years Used Date Smoking Tobacco: Some Days Cigarettes Passive Smoke Exposure: Current Smokeless Tobacco: Never Depression Answer Date Recorded Patient Health Questionnaire-9 [...] encounter Miscellaneous Notes * Telephone Encounter - Loretta Shah [place] - 07/31/2024 12:25 PM EDT Chart Prep Labs: done Images: not applicable Referrals: Optometry appt.- Patient declined appt per office. Vaccines due: Covid, Flu, and Tdap Screenings: HIV Screening Overdue care gaps: SBIRT, PHQ-9, INDIO-7, and Disability screen documented in this encounter Plan of Treatment Upcoming Encounters Date Type Department Care Team (Late st Contact Info) Description 09/05/2024 3:15 PM EDT Office Visit [facility] [address] [place] [address] Olya Lew MD [address] [place] [address] documented as of this encounter Visit Diagnoses Not on filedocumented in this encounter Care Teams Subcontract Manager Relationship Specialty Start Date End Date Olya Lew MD [address] [place] [address] PCP - General Family Medicine 12/08/17 documented as of this encounter
--- OUTSIDE RECORDS SUMMARY | 2024-08-04 11:56 | XMS_ITS | Encounter Summary ---
Author Organization [employer] Address [address] [place] [address] Care Team Providers Care Photo Lab Specialist Name Role Phone Olya Lew MD Primary Care Provide r Encounter Details Date Type Department Care Team ([facility] st Contact Info) Description 08/01/2024 1:45 PM EDT Office Visit [facility] [address] [place] [address] Olya Lew MD [address] [place] [address] Chronic gouty arthritis (Primary Dx); Arthritis of right hand; Primary hypertension Social History Tobacco Use Types Packs/Day Years [...] 20 08/01/2024 1:42 PM EDT Oxygen Saturation - - Inhaled Oxygen Concentration - - Weight - - Height 180.3 cm (5' 11 ) 08/01/2024 1:42 PM EDT Body Mass Index - - documented in this encounter Progress Notes * Olya Mathews MD - 08/01/2024 1:45 PM EDT SUBJECTIVE: Alan Sanchez is a 33 y.o. year old male who presents for Chronic Disease Management . 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 Encounter for preventive care Mild intermittent asthma without complication Polyarthralgia Myopia of both eyes with astigmatism Otitis media Sensation of plugged ear on left side COVID-19 virus infection Arthritis of right hand No family history on file. Review of Systems Constitutional: Negative. HENT: Negative. Respiratory: Negative. Cardiovascular: Negative. Musculoskeletal: Positive for arthralgias, back pain and myalgias. OBJECTIVE: Vitals: 08/01/24 1342 BP: (!) 158/96 BP Location: Left arm Patient Position: Sitting BP Cuff Size: Large adult Pulse: 107 Resp: 20 Temp: 96.1 ??F (35.6 ??C) TempSrc: Oral Height: 5' 11 (1.803 m) Physical Exam Cardiovascular: Rate and Rhythm: Normal rate and regular rhythm. Pulmonary: Effort: Pulmonary effort is normal. Breath sounds: Normal breath sounds. Abdominal: General: Abdomen is flat. Palpations: Abdomen is soft. Musculoskeletal: General: Tenderness present. Neurological: Mental Status: He is alert. Follow Up: No follow-ups on file. Current Outpatient Medications on File Prior to Visit Medication Sig Dispense Refill albuterol 108 (90 Base) MCG/ACT inhaler Inhale 2 puffs every 6 (six) hours if needed for wheezing. 18 g 2 Blood Pressure kit 1 each 2 times daily. 1 kit 0 cloZAPine (Clozaril) 100 MG tablet Take by mouth in the morning. cloZAPine (Clozaril) 200 MG tablet Take 400 mg by mouth at bedtime. cloZAPine (Clozaril) 25 MG tablet Take 25 mg by mouth in the morning. fenofibrate (Triglide) 160 MG tablet Take 1 tablet (160 mg) by mouth Once per day. 30 tablet 11 fluticasone (Flonase) 50 MCG/ACT nasal spray Administer 1 spray into each nostril Once per day. 16 g 0 lamoTRIgine (LaMICtal) 100 MG tablet 100 mg at bedtime. lamoTRIgine (LaMICtal) 25 MG tablet Take 75 mg by mouth in the morning. omeprazole (PriLOSEC) [address] capsule Take 1 capsule (20 mg) by mouth in the morning. 90 capsule 0 QUEtiapine (SEROquel) 25 MG tablet Take by mouth if needed at bedtime. sodium chloride (Person Nasal [place]) 0.65 % nasal spray Administer 1 spray into each nostril if needed for congestion. 30 mL 0 [DISCONTINUED] celecoxib (CeleBREX) 200 MG capsule TAKE 1 CAPSULE (200 MG) BY MOUTH EVERY 12 (TWELVE) HOURS IF NEEDED FOR MILD PAIN. 60 capsule 0 No current facility-administered medications on file prior to visit. Problem List Items Addressed This Visit Arthritis of right hand Patient is not on a gout flare right now and he still complains of pain on his right hand I will order an x-ray and I will contact him with results Relevant Medications diclofenac (Cataflam) 50 MG tablet Other Relevant Orders XR Hand 3+ Views Right Hypertension Extensive discussion about low-sodium diet and weight loss done today I will start patient on losartan 25 mg daily Patient has an upcoming appointment with me I asked him to log his blood pressure Relevant Medications losartan (Cozaar) 25 MG tablet Chronic gouty arthritis - Primary I decided to start patient on allopurinol 100 mg and I will recheck uric acid on next appointment Relevant Medications allopurinol (Zyloprim) 100 MG tablet documented in this encounter Miscellaneous Notes * Assessment & Plan Note - Olya Mathews MD - 08/01/2024 4:15 PM EDT Associated Problem(s): Chronic gouty arthritis I decided to start patient on allopurinol 100 mg and I will recheck uric acid on next appointment * Assessment & Plan Note - Olya Mathews MD - 08/01/2024 4:15 PM EDT Associated Problem(s): Arthritis of right hand Patient is not on a gout flare right now and he still complains of pain on his right hand I will order an x-ray and I will contact him with results * Assessment & Plan Note - Olya Mathews MD - 08/01/2024 4:14 PM EDT Associated Problem(s): Hypertension Extensive discussion about low-sodium diet and weight loss done today I will start patient on losartan 25 mg daily Patient has an upcoming appointment with me I asked him to log his blood pressure documented in this encounter Plan of Treatment Upcoming Encounters Date Type Department Care Team (Late st Contact Info) Description 09/05/2024 3:15 PM EDT Office Visit [facility] [address] [place] [phone] Olya Lew MD [address] [place] [address] Scheduled Orders Name Type Priority Associated Diagnoses Orde r Schedule XR Hand 3+ Views Right Imaging Routine Arthritis of right hand Expected: 08/01/2024, Expires: 08/01/2025 documented as of this encounter Visit Diagnoses Diagnosis Chronic gouty arthritis- Primary Chronic gouty arthropathy without mention of tophus (tophi) Arthritis of right hand Primary hypertension Unspecified essential hypertension documented in this encounter Additional Health Concerns Assessment Noted Time PHQ-9 Depression Total Score: 8 08/02/19 25 1:50 PM EDT documented as of this encounter Care Teams Photo Lab Specialist Relationship Specialty Start Date End Date Olya Lew MD [address] [place] [address] PCP - General Family Medicine 12/08/17 documented as of this encounter
== END 2024-08-04 11:27 | disposition home or self-care (01) ==
LOC: HO.HHCX 11:26
PROVIDERS: Visit Provider Internal Medicine
DX: M19.041 Primary osteoarthritis, right hand (principal)
CPT/HCPCS: 73130

== ENCOUNTER → 2024-08-04 11:27 | Outpatient (BNV) | payer MEDICARE, MEDICAID, SELFPAY | PROVIDERS: Visit Provider Radiology Diagnostic Radiology | DX: M79.641 Pain in right hand (principal) | CPT/HCPCS: 73130 ==

== ENCOUNTER 2024-09-19 10:47 | Outpatient (REF) | payer MEDICARE, MEDICAID, SELFPAY ==
[2024-09-19 11:00] LABS: MANUAL DIFF FLAG NO
[2024-09-19 11:34] LABS: Hematocrit 42.2 % (42.0-52.0); Imm Gran Abs Auto 0.06 X10*3/uL (0.00-0.03); Imm Gran Pct Auto 0.9 % (0.0-0.4); Lymphocytes Absolute Auto 1.6 X10*3/uL (1.2-4.9); Lymphocytes Percent Auto 23.4 % (20-40); Mean Corpuscular HGB Conc 33.2 g/dl (31.0-36.0); Mean Corpuscular Hemoglobin 27.8 pg (27.0-33.0); Mean Corpuscular Volume 83.9 fL (80.0-98.0); Mean Platelet Volume 10.6 fL (9.4-12.4); Monocytes Absolute Auto 0.5 X10*3/uL (0.1-1.2); Monocytes Percent Auto 6.6 % (2-11); Neutrophils Absolute Auto 4.7 x10*3/uL (2.0-8.3); Neutrophils Percent Auto 69.1 % (45-73); Platelet Count 225 X10*3/uL (160-400); Red Blood Count 5.03 X10*6/uL (4.60-5.80); Red Cell Distribution Width 13.8 % (11.0-16.0); White Blood Count 6.9 X10*3/uL (4.8-10.8)
--- OUTSIDE RECORDS SUMMARY | 2024-09-19 12:10 | XMS_ITS | Encounter Summary ---
Author Organization [employer] Address [address] [place] [address] Care Team Providers Care Microfiche Duplicator Name Role Phone Olya Lew MD Primary Care Provide r Reason for Visit * Reason Onset Date Comments triage 04/01/2022 Encounter Details Date Type Department Care Team ([facility] st Contact Info) Description 04/01/2022 Telephone [facility] [address] [place], [place] [phone] Olya Lew MD [address] [place] [address] triage Social History Tobacco Use Types Packs/Day [...] apts in office today, advised tocome to [facility] when able and Pt agreed. [...] on filedocumented in this encounter Care Teams Microfiche Duplicator Relationship Specialty Start Date End Date Olya Lew MD [address] [place] [address] PCP - General Family Medicine 12/08/17 documented as of this encounter
== END 2024-09-19 10:48 | disposition home or self-care (01) ==
LOC: HO.LABR 10:47
DX: Z79.899 Other long term (current) drug therapy (principal)
CPT/HCPCS: 36415; 85025

== ENCOUNTER 2024-10-25 08:57 | Outpatient (REF) | payer MEDICARE, MEDICAID, SELFPAY ==
[2024-10-25 09:06] LABS: MANUAL DIFF FLAG NO
[2024-10-25 09:19] LABS: Hematocrit 43.6 % (42.0-52.0); Hemoglobin 14.2 g/dl (14.0-18.0); Imm Gran Abs Auto 0.06 X10*3/uL (0.00-0.03); Imm Gran Pct Auto 0.9 % (0.0-0.4); Lymphocytes Absolute Auto 2.1 X10*3/uL (1.2-4.9); Mean Corpuscular HGB Conc 32.6 g/dl (31.0-36.0); Mean Corpuscular Hemoglobin 27.7 pg (27.0-33.0); Mean Corpuscular Volume 85.2 fL (80.0-98.0); NRBC Abs Auto 0.000 X10*3/uL (0.0-0.012); NRBC Pct Auto 0.0 /100WBC (0.0-0.2); Platelet Count 230 X10*3/uL (160-400); Red Blood Count 5.12 X10*6/uL (4.60-5.80); White Blood Count 7.0 X10*3/uL (4.8-10.8)
== END 2024-10-25 08:58 | disposition home or self-care (01) ==
LOC: HO.LABR 08:57
DX: Z79.899 Other long term (current) drug therapy (principal)
CPT/HCPCS: 36415; 85025

== ENCOUNTER 2024-11-21 10:29 | Outpatient (REF) | payer MEDICARE, MEDICAID, SELFPAY ==
[2024-11-21 10:48] LABS: MANUAL DIFF FLAG NO
--- OUTSIDE RECORDS SUMMARY | 2024-11-21 11:15 | XMS_ITS | Encounter Summary ---
Author Organization [employer] Address [address] [place] [address] Care Team Providers Care Neurological Surgeon Name Role Phone Olya Lew MD Primary Care Provide r Reason for Visit * Reason Comments Med Refill Encounter Details Date Type Department Care Team ([facility] st Contact Info) Description 11/20/2024 Refill [facility]EDS [address] [place], [place] [phone] Olya Lew MD [address] [place] [address] Gastroesophageal reflux disease, unspecified whether esophagitis present; Chronic gouty arthritis Social History Tobacco Use Types Packs/Day Years [...] Gastroesophageal reflux disease, unspecified whether esophagitis present Chronic gouty arthritis Chronic gouty arthropathy without mention of tophus (tophi) documented in this encounter Additional Health Concerns Assessment Noted Time PHQ-9 Depression Total Score: 8 08/02/19 25 1:50 PM EDT documented as of this encounter Care Teams Neurological Surgeon Relationship Specialty Start Date End Date Olya Lew MD [address] [place] [address] PCP - General Family Medicine 12/08/17 documented as of this encounter
--- OUTSIDE RECORDS SUMMARY | 2024-11-21 11:15 | XMS_ITS | Clinical Summary ---
Author Organization [employer] Address [address] [place] [address] Care Team Providers Care Valve Technician Name Role Phone Olya Lew MD Primary Care Provide r Allergies No known active allergies Medications albuterol 108 (90 Base) MCG/ACT inhalerIndicatio ns:Mild intermittent asthma without complication Inhale 2 puffs every 6 (six) hours if needed for wheezing. 18 g 2 09/13/19 24 Active fenofibrate (Triglide) 160 MG tabletIndication s:Hypertriglycer idemia Take 1 tablet (160 mg) by mouth Once per day. 30 tablet 11 10/04/19 24 Active fluticasone (Flonase) 50 MCG/ACT nasal spray Administer 1 spray into each nostril Once per day. 16 g 10/18/19 24 Active Blood Pressure kit 1 each 2 [...] 50 MG tabletIndication s:Arthritis of right hand TAKE 1 TABLET (50 MG) BY MOUTH 3 TIMES DAILY. 90 tablet 10/27/19 25 Active omeprazole (PriLOSEC) [address] capsuleIndicatio ns:Gastroesophag eal reflux disease, unspecified whether esophagitis present TAKE 1 CAPSULE (20 MG) BY MOUTH IN THE MORNING. 30 capsule 3 11/22/19 25 Active allopurinol (Zyloprim) 100 MG tabletIndication s:Chronic gouty arthritis TAKE 1 TABLET BY MOUTH EVERY DAY 30 tablet 3 11/22/19 25 Active allopurinol (Zyloprim) 100 MG tabletIndication s:Chronic gouty arthritis Take 1 tablet (100 mg) by mouth Once per day. 30 tablet 3 08/02/19 25 025 Discontinued omeprazole (PriLOSEC) [address] capsuleIndicatio ns:Gastroesophag eal reflux disease, unspecified whether esophagitis present TAKE 1 CAPSULE (20 MG) BY MOUTH IN THE MORNING. 30 capsule 1 08/31/19 25 025 Discontinued diclofenac (Cataflam) 50 MG tabletIndication s:Arthritis of right hand TAKE 1 TABLET (50 MG) BY MOUTH 3 TIMES DAILY. 90 tablet 09/23/19 25 025 Discontinued Active Problems Problem Noted Date [...] 72 hours (temperature should be less than 100 F without medication). Hand pain 08/31/2023 Gouty arthritis [...] Encounters Date Type Department Care Team Description 11/20/2024 Refill [facility] [address] [place] [address] Olya Lew MD Gastroesophageal reflux disease, unspecified whether esophagitis present; Chronic gouty arthritis 10/25/2024 Refill [facility]S [address] [place] [address] Olya Lew MD Arthritis of right hand 09/22/2024 Refill [facility] [address] [place], [place] [phone] Olya Lew MD Arthritis of right hand 09/05/2024 Telephone [facility] [address] [place] [address] Olya Lew MD SEP RECALL 08/29/2024 Refill [facility] [address] [place], [place] [phone] Olya Lew MD Gastroesophageal reflux disease, unspecified whether esophagitis present; Arthritis of right hand from Last 3 Months Immunizations Immunization Administration Dates Next Due DTaP 02/26/1993, 1,07/27/1990,02/26,1988 Hep B, Adolescent or Pediatric 08/18/1995,1994,02/17/1995 Hep B, adult 04/08/2011,02/26/2011 Hib ([facility]) 02/26/1993,02/26/1990 IPV 07/27/1990, 0,11/27/1989,12/27 Influenza injectable quadriv [...] t he electric, gas, oil or water [employer] company threatened to shut off services in [...] 107 08/01/2024 1:42 PM EDT Temperature 35.6 C (96.1 F) 08/01/2024 1:42 PM EDT Respiratory Rate 20 08/01/2024 1:42 PM EDT Oxygen Saturation 98% 07/14/2024 9:45 AM EDT Inhaled Oxygen Concentration - - Weight 146 kg (322 lb 9.6 oz) 08/31/2023 2:52 PM EDT Height 180.3 cm (5' 11 ) 08/01/2024 1:42 PM EDT Body Mass Index 44.99 08/31/2023 2:52 PM EDT Plan of Treatment Health Maintenance Due Date Last Done Comments HIV Screening 1988 Disability Screening 1988 Alcohol/Substance Use Screening 2000 Family Planning (PISQ) 10/11/2003 HPV Vaccines (1 - Male 3-dose series) 10/11/2003 DTaP/Tdap/Td Vaccines (8 - Td or Tdap) 08/30/2019 08/29/2009, 04/27/2000, 02/26/1993, Additional history exists COVID-19 Vaccine ( season) 2023 01/23/2022, 04/24/2021, 07/06/2020 Influenza Vaccine (#1) 2024 , 04/24/2021, 06/07/2015, Additional history exists Depression Screening 08/01/2025 08/01/2024, 08/02/19 25 SDOH Screening 08/01/2025 08/01/2024 Tobacco Screening 08/01/2025 [...] Years) and At-Risk Patients (6 to 49) Years Completed 08/31/2023, 12/11/2011 Hepatitis C Screening Completed 10/04/2023 Hepatitis A Vaccines Aged Out No long er eligible based on patient's age to complete this topic Meningococcal B Vaccine Aged Out No l onger eligible based on patient's age to complete [...] Procedure Name Priority Date/Time Associated Diagnosis Comments HEPATITIS C AB W/REFL TO HCV RNA, QN, PCR Routine 10/04/2023 10:37 AM EDT Encounter for preventive care LIPID PANEL, STANDARD Routine 10/04/2023 10:37 AM EDT Encounter for preventive care from Last 3 Months or Most Recently Relevant to Health Maintenance Results * Hepatitis C Antibody with Reflex to HCV, RNA, Quantitative, Real-Time PCR (10/04/2023 10:37 AM EDT) Hepatitis C Antibody Nonreactive Nonreactive [facility] Comment:Antibodies to HCV no t detected; does not exclude early acuteHCV infection. Blood Venous blood specimen / Unknown 10/04/2023 10:37 AM EDT 10/04/2023 10:37 AM EDT us Olya Mathews MD LAB BLOOD ORDERABLES Final Result [facility] [address] [place] [phone] * (ABNORMAL) Lipid Panel, Standard (10/04/2023 10:37 AM EDT) Triglycerides 515(H) <150 mg/dL [facility] Comment:Desirable Triglyceri de: less than 150 mg/dLBorderline High Triglyceride 150-199 mg/dLHigh Triglyceride: 200-499 mg/dLVery High Triglyceride: greater than or equal to 5OO mg/dL Cholesterol 222(H) <200 mg/dL [facility] Comment:Desirable Cholestero l: less than 200 mg/dLBorderline High Cholesterol: 200-239 mg/dLHigh Cholesterol: greater than 239 mg/dL LDL Cholesterol Calculated TNP <100 mg/dL [facility] Comment:Unable to calculate the LDL. The formula of FriedwaldBlanca, and Sixto is only valid if the triglycerides areless than 400 mg/dl. HDL Cholesterol 29(L) >40 mg/dL [facility] Comment:Desirable HDL: great er than 40 mg/dL Note: This HDL assay may give artificially low results in patients with liver disease. Blood Venous blood specimen / Unknown 10/04/2023 10:37 AM EDT 10/04/2023 10:37 AM EDT us Olya Mathews MD LAB BLOOD ORDERABLES Final Result [facility] [address] [place] [address] [phone] from Last 3 Months or Most Recently Relevant to Health Maintenance Insurance [facility] STANDARD MEDICARE Care Teams Valve Technician Relationship Specialty Start Date End Date Olya Lew MD [address] [place] [phone] PCP - General Family Medicine 12/08/17
--- OUTSIDE RECORDS SUMMARY | 2024-11-21 11:15 | XMS_ITS | Encounter Summary ---
Author Organization [employer] Address [address] [place] [address] Care Team Providers Care Fashion Artist Name Role Phone Olya Lew MD Primary Care Provide r Reason for Visit * Reason Onset Date Comments triage 04/01/2022 Encounter Details Date Type Department Care Team ([facility] st Contact Info) Description 04/01/2022 Telephone [facility] [address] [place], [place] [phone] Olya Lew MD [address] [place] [address] triage Social History Tobacco Use Types Packs/Day [...] apts in office today, advised tocome to [facility] when able and Pt agreed. Protocol [...] on filedocumented in this encounter Care Teams Fashion Artist Relationship Specialty Start Date End Date Olya Lew MD [address] [place] [address] PCP - General Family Medicine 12/08/17 documented as of this encounter
[2024-11-21 11:29] LABS: Hematocrit 41.5 % (42.0-52.0); Hemoglobin 13.8 g/dl (14.0-18.0); Imm Gran Abs Auto 0.09 X10*3/uL (0.00-0.03); Imm Gran Pct Auto 1.3 % (0.0-0.4); Lymphocytes Absolute Auto 1.7 X10*3/uL (1.2-4.9); Mean Corpuscular HGB Conc 33.3 g/dl (31.0-36.0); Mean Corpuscular Hemoglobin 28.1 pg (27.0-33.0); Mean Corpuscular Volume 84.5 fL (80.0-98.0); NRBC Abs Auto 0.000 X10*3/uL (0.0-0.012); NRBC Pct Auto 0.0 /100WBC (0.0-0.2); Platelet Count 235 X10*3/uL (160-400); Red Blood Count 4.91 X10*6/uL (4.60-5.80); White Blood Count 7.2 X10*3/uL (4.8-10.8)
== END 2024-11-21 10:30 | disposition home or self-care (01) ==
LOC: HO.LABR 10:29
DX: Z79.899 Other long term (current) drug therapy (principal)
CPT/HCPCS: 36415; 85025

== ENCOUNTER 2024-12-19 10:12 | Outpatient (REF) | payer MEDICARE, MEDICAID, SELFPAY ==
[2024-12-19 11:11] LABS: Hematocrit 42.7 % (42.0-52.0); Hemoglobin 14.2 g/dl (14.0-18.0); Mean Corpuscular Volume 85.4 fL (80.0-98.0); Platelet Count 207 X10*3/uL (160-400); Red Blood Count 5.00 X10*6/uL (4.60-5.80)
--- OUTSIDE RECORDS SUMMARY | 2024-12-19 12:23 | XMS_ITS | Clinical Summary ---
Author Organization [employer] Address [address] [place] [address] Care Team Providers Care Medical Collections Representative Name Role Phone Olya Lew MD Primary Care Provide r Allergies No known active allergies Medications albuterol 108 (90 Base) MCG/ACT inhalerIndicati ons:Mild intermittent asthma without complication Inhale 2 puffs every 6 (six) hours if needed for wheezing. 18 g 2 09/13/19 24 Active fenofibrate (Triglide) 160 MG tabletIndicatio ns:Hypertriglyc [...] at bedtime. Active losartan (Cozaar) 25 MG tabletIndicatio ns:Primary hypertension Take 1 tablet (25 mg) by mouth Once per day. 30 tablet 11 08/02/19 25 026 Active omeprazole (PriLOSEC) [address] capsuleIndicati ons:Gastroesoph ageal reflux disease, unspecified whether esophagitis present TAKE 1 CAPSULE (20 MG) BY MOUTH IN THE MORNING. 30 capsule 3 11/22/19 25 Active allopurinol (Zyloprim) 100 MG tabletIndicatio ns:Chronic gouty arthritis TAKE 1 TABLET BY MOUTH EVERY DAY 30 tablet 3 11/22/19 25 Active diclofenac (Cataflam) 50 MG tabletIndicatio ns:Arthritis of right hand TAKE 1 TABLET BY MOUTH 3 TIMES DAILY. 90 tablet 11/25/19 25 Active allopurinol (Zyloprim) 100 MG tabletIndicatio ns:Chronic gouty arthritis Take 1 tablet (100 mg) by mouth Once per day. 30 tablet 3 08/02/19 25 025 Discontinued omeprazole (PriLOSEC) [address] capsuleIndicati ons:Gastroesoph ageal reflux disease, unspecified whether esophagitis present TAKE 1 CAPSULE (20 MG) BY MOUTH IN THE MORNING. 30 capsule 1 08/31/19 25 025 Discontinued diclofenac (Cataflam) 50 MG tabletIndicatio ns:Arthritis of right hand TAKE 1 TABLET (50 MG) BY MOUTH 3 TIMES DAILY. 90 tablet 10/27/19 25 025 Discontinued(R eorder (will not trigger notification [...] Encounters Date Type Department Care Team Description 11/24/2024 Refill [facility] [address] [place] [address] Olya Lew MD Arthritis of right hand 11/20/2024 Refill [facility] [address] [place] [address] Olya Lew MD Gastroesophageal reflux disease, unspecified whether esophagitis present; Chronic gouty arthritis 10/25/2024 Refill [facility] [address] [place] [address] Olya Lew MD Arthritis of right hand 09/22/2024 Refill [facility] [address] [place], [place] [phone] Olya Lew MD Arthritis of right hand from Last 3 [...] Additional history exists COVID-19 Vaccine ( season) 2024 01/23/2022, 04/24/2021, 07/06/2020 Influenza Vaccine (#1) 2024 2, 04/24/2021, 06/07/2015, Additional history exists Depression [...] AM EDT) Hepatitis C Antibody Nonreactive Nonreactive [facility] Comment:Antibodies to HCV no t detected; does not exclude early acuteHCV infection. Blood Venous blood specimen / Unknown 10/04/2023 10:37 AM EDT 10/04/2023 10:37 AM EDT Olya Mathews MD LAB BLOOD ORDERABLES Final Result [facility] [address] [place] [address] [phone] * (ABNORMAL) Lipid Panel, Standard (10/04/2023 10:37 AM EDT) Triglycerides 515(H) <150 mg/dL [facility] Comment:Desirable Triglyceri de: less than 150 mg/dLBorderline High Triglyceride 150-199 mg/dLHigh Triglyceride: 200-499 mg/dLVery High Triglyceride: greater than or equal to 5OO mg/dL Cholesterol 222(H) <200 mg/dL [facility] Comment:Desirable Cholestero l: less than 200 mg/dLBorderline High Cholesterol: 200-239 mg/dLHigh Cholesterol: greater than 239 mg/dL LDL Cholesterol Calculated TNP <100 mg/dL [facility] Comment:Unable to calculate the LDL. The formula of Friedwald,Blanca, and Sixto is only valid if the triglycerides areless than 400 mg/dl. HDL Cholesterol 29(L) >40 mg/dL [facility] Comment:Desirable HDL: great er than 40 mg/dL Note: This HDL assay may give artificially low results in patients with liver disease. Blood Venous blood specimen / Unknown 10/04/2023 10:37 AM EDT 10/04/2023 10:37 AM EDT Olya Mathews MD LAB BLOOD ORDERABLES Final Result [facility] [address] [place] [address] [phone] from Last 3 Months or Most Recently Relevant to Health Maintenance Insurance [facility] STANDARD MEDICARE Care Teams Medical Collections Representative Relationship Specialty Start Date End Date Olya Lew MD [address] [place] [phone] PCP - General Family Medicine 12/08/17
--- OUTSIDE RECORDS SUMMARY | 2024-12-19 12:23 | XMS_ITS | Encounter Summary ---
Author Organization [employer] Address [address] [place] [address] Care Team Providers Care Clinical Rehabilitation Aide Name Role Phone Olya Lew MD Primary Care Provide r Reason for Visit * Reason Onset Date Comments triage 04/01/2022 Encounter Details Date Type Department Care Team ([facility] st Contact Info) Description 04/01/2022 Telephone [facility] [address] [place], [place] [phone] Olya Lew MD [address] [place] [address] triage Social History Tobacco Use Types Packs/Day [...] apts in office today, advised tocome to [facility] when able and Pt agreed. Protocol [...] on filedocumented in this encounter Care Teams Clinical Rehabilitation Aide Relationship Specialty Start Date End Date Olya Lew MD [address] [place] [address] PCP - General Family Medicine 12/08/17 documented as of this encounter
== END 2024-12-19 10:13 | disposition home or self-care (01) ==
LOC: HO.LABR 10:12
PROVIDERS: PCP Internal Medicine
DX: Z79.899 Other long term (current) drug therapy (principal)
CPT/HCPCS: 36415; 85025

== ENCOUNTER 2025-01-09 10:42 | Outpatient (REF) | payer MEDICARE, MEDICAID, SELFPAY ==
--- OUTSIDE RECORDS SUMMARY | 2025-01-09 12:40 | XMS_ITS | Encounter Summary ---
Author Organization [employer] Address [address] [place] [address] Care Team Providers Care Food Photographer Name Role Phone Olya Lew MD Primary Care Provide r Reason for Visit * Reason Onset Date Comments triage 04/01/2022 Encounter Details Date Type Department Care Team ([facility] st Contact Info) Description 04/01/2022 Telephone [facility] [address] [place], [place] [phone] Olya Lew MD [address] [place] [address] triage Social History Tobacco Use Types Packs/Day [...] apts in office today, advised tocome to [facility] when able and Pt agreed. Protocol Used: [...] on filedocumented in this encounter Care Teams Food Photographer Relationship Specialty Start Date End Date Olya Lew MD [address] [place] [address] PCP - General Family Medicine 12/08/17 documented as of this encounter
--- OUTSIDE RECORDS SUMMARY | 2025-01-09 12:40 | XMS_ITS | Clinical Summary ---
Author Organization [employer] Address [address] [place] [address] Care Team Providers Care Customer Experience Leader Name Role Phone Olya Lew MD Primary Care Provide r Allergies No known active allergies Medications albuterol 108 (90 Base) MCG/ACT inhalerIndication s:Mild intermittent asthma without complication Inhale 2 puffs every 6 (six) hours if needed for wheezing. 18 g 2 4 Active fenofibrate (Triglide) 160 MG tabletIndications :Hypertriglycerid emia Take 1 tablet (160 mg) by mouth Once per day. 30 tablet 11 4 Active fluticasone (Flonase) 50 MCG/ACT nasal spray Administer 1 spray into each nostril Once per day. 16 g 4 Active Blood Pressure kit 1 each 2 times daily. 1 kit 5 07/15/19 26 Active cloZAPine (Clozaril) 200 MG tablet Take [...] at bedtime. Active losartan (Cozaar) 25 MG tabletIndications :Primary hypertension Take 1 tablet (25 mg) by mouth Once per day. 30 tablet 11 5 08/02/19 26 Active omeprazole (PriLOSEC) [address] capsuleIndication s:Gastroesophagea l reflux disease, unspecified whether esophagitis present TAKE 1 CAPSULE (20 MG) BY MOUTH IN THE MORNING. 30 capsule 3 5 Active allopurinol (Zyloprim) 100 MG tabletIndications :Chronic gouty arthritis TAKE 1 TABLET BY MOUTH EVERY DAY 30 tablet 3 5 Active diclofenac (Cataflam) 50 MG tabletIndications :Arthritis of right hand TAKE 1 TABLET BY MOUTH 3 TIMES DAILY. 90 tablet 5 Active Active Problems Problem Noted Date Diagnosed [...] Type Department Care Team Description 11/24/2024 Refill [facility] [address] [place] [address] Olya Lew MD Arthritis of right hand 11/20/2024 Refill [facility] [address] [place] [address] Olya Lew MD Gastroesophageal reflux disease, unspecified whether esophagitis present; Chronic gouty arthritis 10/25/2024 Refill [facility] [address] [place], [place] [phone] Olya Lew MD Arthritis of right hand [...] AM EDT) Hepatitis C Antibody Nonreactive Nonreactive [facility] Comment:Antibodies to HCV no t detected; does not exclude early acuteHCV infection. Blood Venous blood specimen / Unknown 10/04/2023 10:37 AM EDT 10/04/2023 10:37 AM EDT us Olya Mathews MD LAB BLOOD ORDERABLES Final Result [facility] [address] [place] [phone] * (ABNORMAL) Lipid Panel, Standard (10/04/2023 10:37 AM EDT) Triglycerides 515(H) <150 mg/dL [facility] Comment:Desirable Triglyceri de: less than 150 mg/dLBorderline High Triglyceride 150-199 mg/dLHigh Triglyceride: 200-499 mg/dLVery High Triglyceride: greater than or equal to 5OO mg/dL Cholesterol 222(H) <200 mg/dL [facility] Comment:Desirable Cholestero l: less than 200 mg/dLBorderline High Cholesterol: 200-239 mg/dLHigh Cholesterol: greater than 239 mg/dL LDL Cholesterol Calculated TNP <100 mg/dL [facility] Comment:Unable to calculate the LDL. The formula of Friedwald,Blanca, and Sixto is only valid if the triglycerides areless than 400 mg/dl. HDL Cholesterol 29(L) >40 mg/dL [facility] Comment:Desirable HDL: great er than 40 mg/dL Note: This HDL assay may give artificially low results in patients with liver disease. Blood Venous blood specimen / Unknown 10/04/2023 10:37 AM EDT 10/04/2023 10:37 AM EDT us Olya Mathews MD LAB BLOOD ORDERABLES Final Result [facility] [address] [place] [phone] [phone] from Last 3 Months or Most Recently Relevant to Health Maintenance Insurance [facility] STANDARD MEDICARE Care Teams Customer Experience Leader Relationship Specialty Start Date End Date Olya Lew MD [address] [place] [phone] PCP - General Family Medicine 12/08/17
[2025-01-09 13:15] LABS: MANUAL DIFF FLAG NO
[2025-01-09 13:34] LABS: Hematocrit 41.3 % (42.0-52.0); Hemoglobin 13.8 g/dl (14.0-18.0); Imm Gran Abs Auto 0.05 X10*3/uL (0.00-0.03); Imm Gran Pct Auto 0.8 % (0.0-0.4); Lymphocytes Absolute Auto 1.6 X10*3/uL (1.2-4.9); Mean Corpuscular HGB Conc 33.4 g/dl (31.0-36.0); Mean Corpuscular Hemoglobin 28.3 pg (27.0-33.0); Mean Corpuscular Volume 84.8 fL (80.0-98.0); NRBC Abs Auto 0.000 X10*3/uL (0.0-0.012); NRBC Pct Auto 0.0 /100WBC (0.0-0.2); Platelet Count 214 X10*3/uL (160-400); Red Blood Count 4.87 X10*6/uL (4.60-5.80); White Blood Count 6.3 X10*3/uL (4.8-10.8)
== END 2025-01-09 10:43 | disposition home or self-care (01) ==
LOC: HO.10HDL 10:42
DX: Z79.899 Other long term (current) drug therapy (principal)
CPT/HCPCS: 36415; 85025

== ENCOUNTER 2025-02-13 10:06 | Outpatient (REF) | payer MEDICARE, MEDICAID, SELFPAY ==
[2025-02-13 10:16] LABS: MANUAL DIFF FLAG NO
[2025-02-13 10:36] LABS: Hematocrit 45.3 % (42.0-52.0); Hemoglobin 14.8 g/dl (14.0-18.0); Imm Gran Abs Auto 0.09 X10*3/uL (0.00-0.03); Imm Gran Pct Auto 1.2 % (0.0-0.4); Lymphocytes Absolute Auto 1.8 X10*3/uL (1.2-4.9); Mean Corpuscular HGB Conc 32.7 g/dl (31.0-36.0); Mean Corpuscular Hemoglobin 28.1 pg (27.0-33.0); Mean Corpuscular Volume 86.0 fL (80.0-98.0); NRBC Abs Auto 0.000 X10*3/uL (0.0-0.012); NRBC Pct Auto 0.0 /100WBC (0.0-0.2); Platelet Count 225 X10*3/uL (160-400); Red Blood Count 5.27 X10*6/uL (4.60-5.80); White Blood Count 7.4 X10*3/uL (4.8-10.8)
== END 2025-02-13 10:07 | disposition home or self-care (01) ==
LOC: HO.LABR 10:06
DX: Z79.899 Other long term (current) drug therapy (principal)
CPT/HCPCS: 36415; 85025

== ENCOUNTER 2025-03-14 10:26 | Outpatient (REF) | payer MEDICARE, MEDICAID, SELFPAY ==
[2025-03-14 10:43] LABS: MANUAL DIFF FLAG NO
[2025-03-14 11:01] LABS: Hematocrit 44.3 % (42.0-52.0); Hemoglobin 14.4 g/dl (14.0-18.0); Imm Gran Abs Auto 0.06 X10*3/uL (0.00-0.03); Imm Gran Pct Auto 0.8 % (0.0-0.4); Lymphocytes Absolute Auto 1.5 X10*3/uL (1.2-4.9); Mean Corpuscular HGB Conc 32.5 g/dl (31.0-36.0); Mean Corpuscular Hemoglobin 28.2 pg (27.0-33.0); Mean Corpuscular Volume 86.7 fL (80.0-98.0); NRBC Abs Auto 0.000 X10*3/uL (0.0-0.012); NRBC Pct Auto 0.0 /100WBC (0.0-0.2); Platelet Count 215 X10*3/uL (160-400); Red Blood Count 5.11 X10*6/uL (4.60-5.80); White Blood Count 7.9 X10*3/uL (4.8-10.8)
--- OUTSIDE RECORDS SUMMARY | 2025-03-14 13:02 | XMS_ITS | Encounter Summary ---
Author Organization [employer] Address [address] [place] [address] Care Team Providers Care Spareribs Trimmer Name Role Phone Olya Lew MD Primary Care Provide r Reason for Visit * Reason Onset Date Comments triage 04/01/2022 Encounter Details Date Type Department Care Team ([facility] st Contact Info) Description 04/01/2022 Telephone [facility] MEDICINE [address] [place], [place] [phone] Olya Lew MD [address] [place] [address] triage Social History Tobacco Use Types Packs/Day [...] apts in office today, advised tocome to [facility] when able and Pt agreed. Protocol [...] on filedocumented in this encounter Care Teams Spareribs Trimmer Relationship Specialty Start Date End Date Olya Lew MD [address] [place] [address] PCP - General Family Medicine 12/08/17 documented as of this encounter
--- OUTSIDE RECORDS SUMMARY | 2025-03-14 13:02 | XMS_ITS | Clinical Summary ---
Author Organization [employer] Address [address] [place] [address] Care Team Providers Care Drywaller Name Role Phone Olya Lew MD Primary [...] 026 Active omeprazole (PriLOSEC) [address] [place] ns:Gastroesophag eal reflux disease, unspecified whether esophagitis present TAKE 1 CAPSULE (20 MG) BY MOUTH IN THE MORNING. 30 capsule 3 11/22/19 25 Active allopurinol (Zyloprim) 100 MG tabletIndication s:Chronic gouty arthritis TAKE 1 TABLET BY MOUTH EVERY DAY 30 tablet 3 11/22/19 25 Active diclofenac (Cataflam) 50 MG tabletIndication s:Arthritis of right hand TAKE 1 TABLET BY MOUTH 3 TIMES DAILY. 90 tablet 02/22/20 25 Active diclofenac (Cataflam) 50 MG tabletIndication s:Arthritis of right hand TAKE 1 TABLET BY MOUTH 3 TIMES DAILY. 90 tablet 11/25/19 25 025 Discontinued Active Problems Problem Noted [...] Encounters Date Type Department Care Team Description 02/27/2025 Telephone [facility] MED[facility]INE [address] [place] [address] Olya Lew MD Outreach 02/21/2025 Refill [facility] [address] [place] [address] Olya Lew MD Arthritis of right hand [...] AM EDT) Hepatitis C Antibody Nonreactive Nonreactive [facility] Comment:Antibodies to HCV no t detected; does not exclude early acuteHCV infection. Blood Venous blood specimen / Unknown 10/04/2023 10:37 AM EDT 10/04/2023 10:37 AM EDT us Olya Mathews MD LAB BLOOD ORDERABLES Final Result Performing Organization Address [facility] Co de Phone Number [facility] [address] [place] [phone] * (ABNORMAL) Lipid Panel, Standard (10/04/2023 10:37 AM EDT) Triglycerides 515(H) <150 mg/dL [facility] Comment:Desirable Triglyceri de: less than 150 mg/dLBorderline High Triglyceride 150-199 mg/dLHigh Triglyceride: 200-499 mg/dLVery High Triglyceride: greater than or equal to 5OO mg/dL Cholesterol 222(H) <200 mg/dL [facility] Comment:Desirable Cholestero l: less than 200 mg/dLBorderline High Cholesterol: 200-239 mg/dLHigh Cholesterol: greater than 239 mg/dL LDL Cholesterol Calculated TNP <100 mg/dL [facility] Comment:Unable to calculate the LDL. The formula of Friedwald,Blanca, and Sixto is only valid if the triglycerides areless than 400 mg/dl. HDL Cholesterol 29(L) >40 mg/dL [facility] Comment:Desirable HDL: great er than 40 mg/dL Note: This HDL assay may give artificially low results in patients with liver disease. Blood Venous blood specimen / Unknown 10/04/2023 10:37 AM EDT 10/04/2023 10:37 AM EDT us Olya Mathews MD LAB BLOOD ORDERABLES Final Result Performing Organization Address [facility] Co de Phone Number [facility] [address] [place] [phone] from Last 3 Months or Most Recently Relevant to Health Maintenance Insurance [facility] STANDARD MEDICARE Care Teams Drywaller Relationship Specialty Start Date End Date Olya Lew MD [address] [place] [id number] PCP - General Family Medicine 12/08/17
== END 2025-03-14 10:27 | disposition home or self-care (01) ==
LOC: HO.LABR 10:26
PROVIDERS: PCP Internal Medicine
DX: Z79.899 Other long term (current) drug therapy (principal)
CPT/HCPCS: 36415; 85025